=== PATIENT | male | born 1965 | race American Indian/Alaskan Native ===

== ENCOUNTER 2016-05-08 08:07 | Day surgery (SDC) | payer OTHER ==
[2016-05-08] MEDS ORDERED: DIPRIVAN 10 MG/ML IV ONE ×3 (08:21→10:06)
[2016-05-08] MEDS ORDERED: NACL 0.9% 1000 ML 1,000 ML IV SCH (09:00)
--- NOTE | 2016-05-08 09:02 | Anesthesia Consultation ---
Anesthesia Consult and Med Hx Date of service: 05/08/16 - Airway Anesthetic Teeth Evaluation: Good ROM Head & Neck: Adequate Mental/Hyoid Distance: Adequate Mallampati Class: Class II Intubation Access Assessment: Probably Good - Pulmonary Exam CTA: Yes - Cardiac Exam Cardiac Exam: RRR - Pre-Operative Health Status ASA Pre-Surgery Classification: ASA3 Proposed Anesthetic Plan: MAC - Pulmonary Hx Smoking: No - Cardiovascular System Hx Hypertension: Yes Hx Heart Attack/AMI: Yes Hx Internal Defibrillator: Yes (AICD w/ pacemaker, last shock 11/2014) - Central Nervous System CVA: Yes (10/2014) - Gastrointestinal Hx Gastroesophageal Reflux Disease: Yes - Endocrine Hx Insulin Dependent Diabetes: Yes - Hematic Hx Anemia: Yes Hx Sickle Cell Disease: No - Other Systems Hx Alcohol Use: No Hx Substance Use: No Hx Cancer: No Hx Obesity: No
--- NOTE | 2016-05-08 09:03 | Anesthesia Day of Surgery ---
Anesthesia Day of Surgery - Day of Surgery Patient Examined: Yes Patient H&P Reviewed: Yes Patient is NPO: Yes Beta Blockers: Yes
[2016-05-08] MEDS ORDERED: ROBINUL ONE (09:20)
[2016-05-08] MEDS ORDERED: XYLOCAINE MPF 2% ONE (09:20)
--- NOTE | 2016-05-08 09:20 | Short Stay Summary ---
Short Stay Documentation Date of service: 05/08/16 Narrative H&P: 50 year old presents for EGD/colonoscopy for evaluation of abdominal pain, diarrhea and reported abnormal 3rd and 4th portions of duodenum on CT scan. - History Principal diagnosis: abdominal pain, diarrhea, abnormal CT scan duodenum H&P: obtained from office - Allergies and Medications Current Medications: Allergies heparin Allergy (Mild, Verified 05/05/16 11:43) Hives metformin Allergy (Mild, Verified 05/05/16 11:43) Hives Home Medications Medication Instructions Recorded Confirmed Last Taken Type Adult Low Dose Aspirin EC 81 mg PO DAILY 05/05/16 05/08/16 05/01/16 09:00 History Colchicine 0.6 mg PO DAILY 05/05/16 05/08/16 05/08/16 05:00 History Furosemide 40 mg PO DAILY 05/05/16 05/08/16 05/07/16 10:00 History Lisinopril 40 mg PO DAILY 05/05/16 05/08/16 05/08/16 05:00 History Metoprolol 75 mg PO DAILY 05/05/16 05/08/16 05/08/16 05:00 History Pantoprazole 40 mg PO DAILY 05/05/16 05/05/16 05/05/16 History Vitamin D 50,000 units PO 1XW 05/05/16 05/05/16 05/01/16 History amLODIPine 10 mg PO DAILY 05/05/16 05/08/16 05/08/16 05:00 History cloNIDine 0.1 mg PO DAILY 05/05/16 05/08/16 05/08/16 05:00 History Active Medications Sodium Chloride (Nacl 0.9% 1000 Ml) 1,000 mls @ 50 mls/hr IV DIRECT BRITTANI Last Admin: 05/08/16 09:06 Dose: 50 mls/hr - Hospital course Hospital course: Uneventful EGD/J and colonoscopy. See reports. - Disposition Condition at discharge: Good Disposition: DISCHARGED TO HOME OR SELFCARE - Discharge Diagnoses (1) Abdominal pain Status: Acute Qualifiers: Abdominal location: A (2) Diarrhea Status: Acute Qualifiers: Diarrhea type: D (3) Abnormal CT of the abdomen Status: Acute Comment: reportedly wall thickening of 3rd and 4th duodenum (4) Hiatal hernia Status: Acute (5) Diverticulosis of colon Status: Acute Qualifiers: Diverticulosis bleeding: D (6) Internal hemorrhoids Status: Acute Short Stay Discharge Plan Activity: other (no driving today) Diet: other (resume usual) Additional Instructions: Patient to call for biopsy results in 10 days. Follow up with: PRIMARY CARE, [Primary Care Provider] - 7 Days
[2016-05-08] MEDS ORDERED: WATER FOR IRRIG STERILE IR ONE ×2 (10:09→10:10)
--- NOTE | 2016-05-08 10:12 | Operative Report ---
Operative Report Operative Report: Date of procedure: 05/08/2016 Preprocedure diagnosis: Unexplained abdominal pain, reported diarrhea, reported abnormal CT scan showing wall thickening of third and fourth portions of duodenum Post procedure diagnosis: Hiatal hernia, diverticulosis coli, internal hemorrhoids Procedure name(s): 1. Esophagogastroduodenoscopy plus jejunoscopy 2. Colonoscopy with biopsy Surgeon: Harvinder Guevara MD Anesthesia: Monitored anesthesia care EBL: None Procedure: The indications, techniques, potential complications and alternatives , had been discussed in full detail prior to the date of the exam, and once again on the day of the exam. Questions were encouraged and answered, and consent was thereby obtained. The patient was placed in the left lateral decubitus position, and was medicated by anesthesia services. See the anesthesia records for details. The tip of a pediatric colonoscope was passed without difficulty per orum, advanced through the pharynx and through the esophagus which appeared normal throughout its entire length. The instrument was advanced into the stomach and air was insufflated. The stomach distended well, gastric folds were normal in thickness and contour, gastric mucosa appeared normal throughout, the pylorus was patent and there was no retained gastric content. No pathology was seen in the duodenal bulb. The endoscope was then advanced through the duodenum at least into fourth portion of duodenum if not beyond the ligament of Treitz. No mucosal abnormality, abnormal distensibility or other luminal pathology was noted at any point. The ampulla was mildly prominent but covered with normal mucosa and appeared otherwise normal. Retroflexion in the stomach disclosed a hiatal hernia but otherwise normal lesser curvature, fundus and cardia on retroflexed examination. The instrument was straightened and withdrawn with repeat examination of the duodenum, stomach, esophagogastric junction and esophagus. There were no additional findings. The procedure was very well tolerated. He was placed in position for colonoscopy. The anal sphincter was digitally dilated, revealing no abnormality. The tip of the pediatric colonoscope was inserted through the anal sphincter and into the rectal vault. It was then advanced proximally under continuous visualization of the lumen to the cecum without difficulty. The prep was [id number] with significant mucoid fecal matter adherent to mucosa in a patchy distribution. Frequent copious lavage and suctioning were employed to improve mucosal visibility. No pathology was seen in the cecum. The appendiceal orifice and ileocecal valve appeared normal. Cannulation of the ileocecal valve was not successful due to sharp angulation. From the cecum, the instrument was slowly withdrawn with careful circumferential examination of the mucosa. A few diverticula were noted, primarily in the distal ascending and proximal transverse colon. Otherwise no pathology was found in any segment of colon on forward view. Random mucosal biopsies were obtained from all segments of colon to assess for microscopic colitis in view of the stated history of diarrhea. No significant bleeding was precipitated. Retroflexion in the rectum revealed mild to moderate internal hemorrhoids with no stigmata of bleeding. The instrument was fully withdrawn. The procedure was very well tolerated. He was then monitored in the recovery area of the GI lab to ensure stability prior to his release. See the outpatient record for details regarding instructions to patient, medications and plans for follow-up. Final diagnosis: 1. Hiatal hernia, otherwise normal upper endoscopy including jejunoscopy. No pathology found to account for abdominal pain nor to correspond to reported duodenal findings on CT scan. 2. Mild diverticulosis coli and internal hemorrhoids, otherwise normal colonoscopy to the cecum, no explanation for abdominal discomfort or diarrhea, random biopsies obtained to assess for microscopic colitis in view of stated history of diarrhea, however it is noteworthy that the prep was suboptimal. Harvinder Guevara M.D. Dictated 05/08/2016 at 10:07 AM
--- NOTE | 2016-05-08 10:40 | Event Note ---
Date: 05/08/16 Upon awakening in GI Lab recovery, Mr. Polk complained of pain in both legs with inability to move either leg. No upper extremity symptoms. On questioning, he gave history of previous cervical spine disease, and history of prior significant injury to lumbar spine including previous history of leg weakness. He was seen by anesthesia services and by me. Exam showed intact sensation with preserved ability to move toes bilaterally, moreso on the right. Dr. Haas of hospitalist service was contacted; he is coming to [facility] for probable admission and neurology consultation. I have discussed with Mr. Polk and his sister.
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
--- NOTE | 2016-05-08 12:07 | Event Note ---
Date: 05/08/16 I was called to admit patient to the hospitalist service by Dr. Guevara GI doctor. Patient came in for an outpatient upper and lower endoscopy through the GI lab. Patient had both procedures done and after procedures patient was unable to move his lower extremities. I was then asked to admit the patient to the hospitalist service but upon further investigation and review. I was informed that we do not have neurosurgery coverage today and patient needs urgent neurosurgery evaluation. Spoke to Dr. Guevara again and gave the message to him. He stated that he will have the patient transferred to the emergency room for further management. Also inform Dr. Guevara that the patient needs to be transferred to a facility that can provide neurosurgery evaluation today.
--- NOTE | 2016-05-08 12:13 | Event Note ---
Date: 05/08/[address] Haas. Patient cannot be admitted to [facility] medicine service due to lack of neurosurgical services. Per his advice Mr. Polk will be transferred to ED for further evaluation and disposition. I have spoken with ED physician and ED charge nurse who are now awaiting patient, and explained situation to Mr. Polk and his sister. Mr. Polk states symptoms in right leg have nearly resolved and are improving in left leg. Lef pain much improved. Sensory intact both legs but left leg still feels weak. He is requesting to go home but has agreed to stay for further evaluation and likely transfer to another facility that has full neurologic and neurosurgical services available.
--- NOTE | 2016-05-08 13:05 | Post Anesthesia Evaluation ---
- Post Anesthesia Evaluation Patient Participated: Yes Airway Patent: Yes Stable Respiratory Function: Yes Nausea/Vomiting: No Temp > 96.8F: Yes Pain Manageable: Yes Adequeate Hydration: Yes Anesthesia Complications: No (see anesthesia progress note) Block Receding Appropriately: Not Applicable Patient on Ventilator: No
[2016-05-09 10:53] VITALS: BP 148/78
== END 2016-05-08 08:08 | disposition home or self-care (01) ==
LOC: GIO 08:07 → 3A 11:04 → UNDOADMIN 11:04 → 3A 12:48 → CC1 12:48 → 3A 12:49 → CC1 12:49 → 3A 12:50 → CC1 12:50
PROVIDERS: ATTEND Internal Medicine Gastroenterology
DX: K52.9 Noninfective gastroenteritis and colitis, unspecified (principal); K31.89 Other diseases of stomach and duodenum; K44.9 Diaphragmatic hernia without obstruction or gangrene; K57.30 Diverticulosis of large intestine without perforation or abscess without bleeding; K64.8 Other hemorrhoids; M79.605 Pain in left leg; M79.604 Pain in right leg; E11.9 Type 2 diabetes mellitus without complications; K21.9 Gastro-esophageal reflux disease without esophagitis; I10 Essential (primary) hypertension; I25.2 Old myocardial infarction; Z95.1 Presence of aortocoronary bypass graft; Z98.890 Other specified postprocedural states; Z83.3 Family history of diabetes mellitus; Z83.79 Family history of other diseases of the digestive system; Z83.49 Family history of other endocrine, nutritional and metabolic diseases; Z80.0 Family history of malignant neoplasm of digestive organs; Z72.89 Other problems related to lifestyle; Z95.0 Presence of cardiac pacemaker; Z95.810 Presence of automatic (implantable) cardiac defibrillator
CPT/HCPCS: 44360; 45380; 82962; 88305; J2704; J7030; 99283

== ENCOUNTER 2016-05-08 13:12 | Emergency (ER) | payer OTHER ==
[2016-05-08 13:33] VITALS: BP 137/80
--- NOTE | 2016-05-08 13:55 | Emergency Department Report ---
HPI - General Chief Complaint: Extremity Injury, Lower Time Seen by Provider: 05/08/16 13:36 - HPI HPI: The patient is a 50-year-old male whom presents for evaluation of leg weakness. The patient reports one hour of constant, moderate to severe, bilateral lower leg weakness after receiving endoscopy by electronic maintenance supervisor one hour prior to presentation to the emergency department. He says that his symptoms have been improving since onset. He states that he was lying on his left side during the procedure. The patient denies trauma or injury to the head or back, headache, neck pain, back pain, chest pain, abdominal pain, urine or bowel incontinence, paresthesia. He shares that he has experienced episodes of leg weakness in the past for many years. ED Past Medical Hx - Past Medical History Hx Hypertension: Yes Hx Heart Attack/AMI: Yes Hx Diabetes: Yes Hx GERD: Yes Hx Sickle Cell Disease: No - Surgical History Hx Internal Defibrillator: Yes (AICD w/ pacemaker, last shock 11/2014) - Social History Smoking Status: Never Smoker - Medications Home Medications: Home Medications Medication Instructions Recorded Confirmed Last Taken Type Adult Low Dose Aspirin EC 81 mg PO DAILY 05/05/16 05/08/16 05/01/16 09:00 History Colchicine 0.6 mg PO DAILY 05/05/16 05/08/16 05/08/16 05:00 History Furosemide 40 mg PO DAILY 05/05/16 05/08/16 05/07/16 10:00 History Lisinopril 40 mg PO DAILY 05/05/16 05/08/16 05/08/16 05:00 History Metoprolol 75 mg PO DAILY 05/05/16 05/08/16 05/08/16 05:00 History Pantoprazole 40 mg PO DAILY 05/05/16 05/05/16 05/05/16 History Vitamin D 50,000 units PO 1XW 05/05/16 05/05/16 05/01/16 History amLODIPine 10 mg PO DAILY 05/05/16 05/08/16 05/08/16 05:00 History cloNIDine 0.1 mg PO DAILY 05/05/16 05/08/16 05/08/16 05:00 History ED Review of Systems ROS: Stated complaint: R LEG WEAKNESS Other details as noted in HPI Constitutional: denies: fever ENT: denies: throat or neck pain Respiratory: denies: cough, shortness of breath Cardiovascular: denies: chest pain Endocrine: denies unexplained weight loss or gain Gastrointestinal: denies: abdominal pain, nausea Genitourinary: denies: dysuria Musculoskeletal: reports leg weakness denies: leg swelling Skin: denies: rash Neurological: denies: headache Hematological/Lymphatic: denies: easy bleeding or easy bruising Psych: denies sadness or hopelessness Physical Exam - Physical Exam Vital Signs: Vital Signs 05/08/16 13:32 Temperature 98.3 F Pulse Rate 52 L Respiratory 14 Rate Blood Pressure 137/80 [Right] O2 Sat by Pulse 99 Oximetry Physical Exam: General: well-nourished, well-developed, no acute distress Head: Normocephalic, atraumatic Eyes: normal sclera ENT: Mucous membranes are pink and moist Neck: trachea midline, neck supple, No neck stiffness, no cervical adenopathy Respiratory: Breath sounds equal bilaterally, no wheezing, rales, or rhonchi Cardio: S1 and S2 present, no murmurs, rubs, gallops, capillary refill is brisk Abdomen: Normoactive bowel sounds, soft abdomen, no tenderness Chest WALL/Back: No tenderness to palpation of the chest wall, no CVA tenderness with percussion Musc: Inspection of the back and legs are unremarkable, no tenderness to palpation of the midline back, normal active and passive range of motion at the hips intact, no spinous step-off or obvious deformity, ipsi-lateral and contralateral straight leg raise tests are negative. On extremity testing, compartments are soft and pliable, no obvious gross motor strength deficit, 5+ motor strength, including extension of the great toe bilaterally, no muscular atrophy, spasticity, fasciculations, or clonus, no obvious gross sensation deficit including web space between 1st and 2nd toes, reflexes 2+ & symmetric on DTR testing at the knee and ankle joints, distal pulses intact. The patient is able to stand on the right foot and left the left leg, and stand on the left leg and lift the right foot. Skin: No rash Neuro: no facial drooping, normal speech Psych: Normal affect ED Course Vital Signs 05/08/16 13:32 Temperature 98.3 F Pulse Rate 52 L Respiratory 14 Rate Blood Pressure 137/80 [Right] O2 Sat by Pulse 99 Oximetry ED Medical Decision Making - Medical Decision Making The patient was seen and examined by myself. The patient is placed on a surveillance system monitor and continuous pulse ox. On initial evaluation, the patient was found to be in no distress. No findings on exam concerning for cauda equina syndrome, spinal stenosis, epidural abscess, or other emergent disease process at this time. As the patient has no midline tenderness on exam of the back, no neuro deficits, and no findings concerning for spinal chord injury, imaging will not be obtained at this time. The patient states that he feels that he is returning back to his normal baseline and would like to be discharged home. The patient is able to stand on each foot and left the opposing leg. The patient is stable for discharge with outpatient follow-up. The patient is given follow-up and return instructions. The patient expressed understanding and agreed with the plan. The patient is discharged in stable condition. Critical care attestation.: If time is entered above; I have spent that time in minutes in the direct care of this critically ill patient, excluding procedure time. ED Disposition Clinical Impression: Leg weakness, bilateral Disposition: DISCHARGED TO HOME OR SELFCARE Is pt being admited?: No Does the pt Need Aspirin: No Condition: Stable Instructions: Lumbar Radiculopathy (ED), Weakness (ED) Referrals: ZA MALAGON MD [Staff Physician] - 3-5 Days Time of Disposition: 13:53
== END 2016-05-08 14:20 | disposition home or self-care (01) ==
LOC: ED 13:12
DX: M62.81 Muscle weakness (generalized) (principal); I10 Essential (primary) hypertension; E11.9 Type 2 diabetes mellitus without complications; I25.2 Old myocardial infarction; K21.9 Gastro-esophageal reflux disease without esophagitis; Z95.0 Presence of cardiac pacemaker; Z79.82 Long term (current) use of aspirin
CPT/HCPCS: 99283

== ENCOUNTER 2016-09-08 16:12 | Emergency (ER) | payer OTHER ==
--- NOTE | 2016-09-08 20:19 | XRay Report ---
FINAL REPORT EXAM: XR ANKLE 3 LT HISTORY: LEFT ANKLE PAIN AND SWELLING TECHNIQUE: AP, lateral, and oblique views of the left ankle PRIORS: None. FINDINGS: There is no evidence for acute fracture or dislocation. There is mild soft tissue swelling over the lateral malleolus. No radiopaque foreign bodies are seen. The ankle mortise is intact. Bony mineralization is normal and joint spaces are maintained. IMPRESSION: No acute bony abnormality noted. Mild soft tissue swelling over the lateral malleolus.
[2016-09-08] MEDS ORDERED: TORADOL IM ONE (20:33)
--- NOTE | 2016-09-08 20:51 | Emergency Department Report ---
ED General Adult HPI - General Chief complaint: Extremity Injury, Lower Stated complaint: LT FOOT/ANKLE SWOLLEN/PAIN Time Seen by Provider: 09/08/16 20:22 Source: patient Mode of arrival: Ambulatory Limitations: No Limitations - History of Present Illness Initial comments: Patient comes in the ER today with complaints of left ankle pain for the past week. Patient does state that he had a gout flareup in his toes of his left foot last week and he started taking colchicine in addition to his regular regimen of allopurinol for his gout flareup. Patient comes in today because he says that his symptoms are better but now his left ankle is painful and swollen. Patient denies any injury. Patient denies any chest pain, shortness of breath, calf pain, thigh pain. Patient states that the pain is worse with ambulation or movement. - Related Data Home Medications Medication Instructions Recorded Confirmed Last Taken Adult Low Dose Aspirin EC 81 mg PO DAILY 05/05/16 05/08/16 05/01/16 09:00 Colchicine 0.6 mg PO DAILY 05/05/16 05/08/16 05/08/16 05:00 Furosemide 40 mg PO DAILY 05/05/16 05/08/16 05/07/16 10:00 Lisinopril 40 mg PO DAILY 05/05/16 05/08/16 05/08/16 05:00 Metoprolol 75 mg PO DAILY 05/05/16 05/08/16 05/08/16 05:00 Pantoprazole 40 mg PO DAILY 05/05/16 05/05/16 05/05/16 Vitamin D 50,000 units PO 1XW 05/05/16 05/05/16 05/01/16 amLODIPine 10 mg PO DAILY 05/05/16 05/08/16 05/08/16 05:00 cloNIDine 0.1 mg PO DAILY 05/05/16 05/08/16 05/08/16 05:00 Previous Rx's Medication Instructions Recorded Last Taken Type Indomethacin 50 mg PO Q8H PRN #30 capsule 09/08/16 Unknown Rx traMADol [Ultram] 50 mg PO Q4HR PRN #20 tablet 09/08/16 Unknown Rx Allergies Allergy/AdvReac Type Severity Reaction Status Date / Time heparin Allergy Mild Hives Verified 09/08/16 16:35 metformin Allergy Mild Hives Verified 09/08/16 16:35 ED Review of Systems ROS: Stated complaint: LT FOOT/ANKLE SWOLLEN/PAIN Other details as noted in HPI Constitutional: denies: chills, fever Eyes: denies: eye pain, eye discharge, vision change ENT: denies: ear pain, throat pain Respiratory: denies: cough, shortness of breath, wheezing Cardiovascular: denies: chest pain, palpitations Endocrine: no symptoms reported Gastrointestinal: denies: abdominal pain, nausea, diarrhea Genitourinary: denies: urgency, dysuria Musculoskeletal: joint swelling, arthralgia. denies: back pain Skin: denies: rash, lesions Neurological: denies: headache, weakness, paresthesias Psychiatric: denies: anxiety, depression Hematological/Lymphatic: denies: easy bleeding, easy bruising ED Past Medical Hx - Past Medical History Hx Hypertension: Yes Hx Heart Attack/AMI: Yes (X 2) Hx Congestive Heart Failure: Yes Hx Diabetes: Yes Hx Pulmonary Embolism: Yes Hx GERD: Yes Hx Sickle Cell Disease: No Hx Arthritis: Yes (GOUT) Additional medical history: HYPERTROPHIC CARDIOMYOPATHY. TIA - Surgical History Hx Internal Defibrillator: Yes (AICD w/ pacemaker, last shock 11/2014) Additional Surgical History: LEFT ELBOW. DOUBLE HERNIA REPAIR. LEFT AND RIGHT MENISCUS - Social History Smoking Status: Never Smoker Substance Use Type: None - Medications Home Medications: Home Medications Medication Instructions Recorded Confirmed Last Taken Type Adult Low Dose Aspirin EC 81 mg PO DAILY 05/05/16 05/08/16 05/01/16 09:00 History Colchicine 0.6 mg PO DAILY 05/05/16 05/08/16 05/08/16 05:00 History Furosemide 40 mg PO DAILY 05/05/16 05/08/16 05/07/16 10:00 History Lisinopril 40 mg PO DAILY 05/05/16 05/08/16 05/08/16 05:00 History Metoprolol 75 mg PO DAILY 05/05/16 05/08/16 05/08/16 05:00 History Pantoprazole 40 mg PO DAILY 05/05/16 05/05/16 05/05/16 History Vitamin D 50,000 units PO 1XW 05/05/16 05/05/16 05/01/16 History amLODIPine 10 mg PO DAILY 05/05/16 05/08/16 05/08/16 05:00 History cloNIDine 0.1 mg PO DAILY 05/05/16 05/08/16 05/08/16 05:00 History Indomethacin 50 mg PO Q8H PRN #30 capsule 09/08/16 Unknown Rx traMADol [Ultram] 50 mg PO Q4HR PRN #20 tablet 09/08/16 Unknown Rx ED Physical Exam - General Limitations: No Limitations General appearance: alert, in no apparent distress - Head Head exam: Present: atraumatic, normocephalic - Eye Eye exam: Present: normal appearance - ENT ENT exam: Present: mucous membranes moist - Neck Neck exam: Present: normal inspection - Respiratory Respiratory exam: Present: normal lung sounds bilaterally. Absent: respiratory distress - Cardiovascular Cardiovascular Exam: Present: regular rate, normal rhythm. Absent: systolic murmur, diastolic murmur, rubs, gallop - GI/Abdominal GI/Abdominal exam: Present: soft, normal bowel sounds - Rectal Rectal exam: Present: deferred - Extremities Exam Extremities exam: Present: tenderness (left ankle), normal capillary refill, joint swelling (ankle tenderness and swelling with warmth and heat from the joint.), other (left ankle range of motion limited secondary to pain and swelling, no signs of redness or cellulitic findings noted.). Absent: normal inspection, full ROM (Limited range of motion of left ankle secondary to pain.) , pedal edema, calf tenderness - Back Exam Back exam: Present: normal inspection - Neurological Exam Neurological exam: Present: alert, oriented X3 - Psychiatric Psychiatric exam: Present: normal affect, normal mood - Skin Skin exam: Present: warm, dry, intact, normal color. Absent: rash ED Course Vital Signs 09/08/16 16:49 Temperature 98.4 F Pulse Rate 77 Respiratory 17 Rate Blood Pressure 182/108 O2 Sat by Pulse 100 Oximetry ED Medical Decision Making - Radiology Data Radiology results: report reviewed No acute bone pathology. Soft tissue swelling noted to lateral malleolus. - Medical Decision Making Patient is nontoxic and hemodynamically stable. Patient does not have any exam findings consistent with DVT. I believe patient's symptoms are related to migrating gout. Patient has not been on any anti-inflammatories and I will start patient on a course of such. Patient was given Toradol 60 mg IM here in the ER as well as instructed on crutches here in the ER. I have encouraged patient to continue the colchicine in addition to anti-inflammatories and I will place patient on. Patient is in agreement with treatment plan a patient stable for discharge. Critical care attestation.: If time is entered above; I have spent that time in minutes in the direct care of this critically ill patient, excluding procedure time. ED Disposition Clinical Impression: Left ankle pain, Personal history of gout Disposition: TO HOME OR SELFCARE Is pt being admited?: No Does the pt Need Aspirin: No Condition: Good Instructions: Acute Gouty Arthritis (ED), Crutch Instructions (ED) Prescriptions: Indomethacin 50 mg PO Q8H PRN #30 capsule PRN Reason: Inflammation traMADol [Ultram] 50 mg PO Q4HR PRN #20 tablet PRN Reason: Pain Referrals: PRIMARY CARE, [Primary Care Provider] - 3-5 Days Time of Disposition: 20:53
[2016-09-08 21:18] VITALS: BP 182/101
== END 2016-09-08 21:42 | disposition home or self-care (01) ==
LOC: ED 16:12
DX: M25.572 Pain in left ankle and joints of left foot (principal); M10.9 Gout, unspecified; I10 Essential (primary) hypertension; I25.2 Old myocardial infarction; I50.9 Heart failure, unspecified; E11.9 Type 2 diabetes mellitus without complications; K21.9 Gastro-esophageal reflux disease without esophagitis; I42.2 Other hypertrophic cardiomyopathy; Z95.0 Presence of cardiac pacemaker; Z86.711 Personal history of pulmonary embolism; Z88.8 Allergy status to other drugs, medicaments and biological substances
CPT/HCPCS: 73610; 96372; 99284; J1885

== ENCOUNTER 2016-12-31 18:21 | Emergency (ER) | payer OTHER ==
[2016-12-31 18:42] VITALS: BP 183/103
[2016-12-31 19:05] LABS: Basophils % (Auto) 0.6 % (0.0-1.8); Eosinophils % (Auto) 1.1 % (0.0-4.3); Hematocrit 43.8 % (35.5-45.6); Hemoglobin 14.5 gm/dl (11.8-15.2); Mean Corpuscular HGB Conc 33 % (32-34); Mean Corpuscular Hemoglobin 31 pg (28-32); Mean Corpuscular Volume 95 fl (84-94); Platelet Count 229 K/mm3 (140-440); Red Blood Count 4.64 M/mm3 (3.65-5.03); Red Cell Distribution Width 15.4 % (13.2-15.2); White Blood Count 8.9 K/mm3 (4.5-11.0)
[2016-12-31 19:16] LABS: INR 1.49 (0.87-1.13)
[2016-12-31 19:23] LABS: BUN/Creatinine Ratio 12; Blood Urea Nitrogen 18 mg/dL (9-20); Calcium 8.8 mg/dL (8.4-10.2); Carbon Dioxide 26 mmol/L (22-30); Chloride 99.5 mmol/L (98-107); Glucose 118 mg/dL (75-100); Sodium 138 mmol/L (137-145)
[2016-12-31 19:31] LABS: Anion Gap 17 mmol/L; Potassium 4.6 mmol/L (3.6-5.0)
--- NOTE | 2016-12-31 19:45 | XRay Report ---
FINAL REPORT PROCEDURE: XR CHEST ROUTINE 2V TECHNIQUE: PA and lateral chest radiographs were obtained. CPT 17145 HISTORY: chest pain COMPARISON: No prior studies are available for comparison. FINDINGS: Heart: Normal contour. Mediastinum/Vessels: Normal contour. Lungs/Pleural space: No infiltrate, effusion, or pneumothorax. Bony thorax: No acute osseous abnormality. Other: Left AICD IMPRESSION: No radiographic evidence of acute abnormality.
== END 2016-12-31 20:30 | disposition left against medical advice (07) ==
LOC: ED 18:21
DX: R07.9 Chest pain, unspecified (principal); R06.02 Shortness of breath; Z53.21 Procedure and treatment not carried out due to patient leaving prior to being seen by health care provider
CPT/HCPCS: 36415; 71020; 80048; 84484; 85025; 85610; 93005; 93010

== ENCOUNTER 2017-01-01 12:56 | Inpatient (IN) | payer OTHER ==
--- NOTE | 2017-01-01 13:08 | Emergency Department Report ---
ED Chest Pain HPI - General Chief Complaint: Chest Pain Stated Complaint: CHEST PAIN Time Seen by Provider: 01/01/17 13:05 Source: patient, EMS Mode of arrival: Stretcher Limitations: No Limitations - History of Present Illness Initial Comments: 51-year-old male presents to the emergency department by EMS from home with complaint of midsternal chest pain that began 2 days ago. It is a intermittent pressure sensation to the mid chest. It is associated with some occasional shortness of breath. He denies any nausea, vomiting, fever. He received sublingual nitroglycerin in route without any relief. He also had very elevated blood pressure upon EMS arrival with a systolic of about 220. The patient has a history of hypertension, diabetes, coronary artery disease, hypertrophic cardiomyopathy, AICD in situ. Both his primary care and cardiology physicians through the [facility]. He has a history of PA 2 with the last one occurring in May of this year. No recent travel or sick contacts at home. He came [facility] yesterday but did not make it back to the main emergency department and eloped prior to being seen. The patient also has a history of pulmonary embolism 2 and says that he is on Xarelto and has not missed any doses. - Related Data Home Medications Medication Instructions Recorded Confirmed Last Taken Adult Low Dose Aspirin EC 81 mg PO DAILY 05/05/16 05/08/16 05/01/16 09:00 Colchicine 0.6 mg PO DAILY 05/05/16 05/08/16 05/08/16 05:00 Furosemide 40 mg PO DAILY 05/05/16 05/08/16 05/07/16 10:00 Lisinopril 40 mg PO DAILY 05/05/16 05/08/16 05/08/16 05:00 Metoprolol 75 mg PO DAILY 05/05/16 05/08/16 05/08/16 05:00 Pantoprazole 40 mg PO DAILY 05/05/16 05/05/16 05/05/16 Vitamin D 50,000 units PO 1XW 05/05/16 05/05/16 05/01/16 amLODIPine 10 mg PO DAILY 05/05/16 05/08/16 05/08/16 05:00 cloNIDine 0.1 mg PO DAILY 05/05/16 05/08/16 05/08/16 05:00 Previous Rx's Medication Instructions Recorded Last Taken Type Indomethacin 50 mg PO Q8H PRN #30 capsule 09/08/16 Unknown Rx traMADol [Ultram] 50 mg PO Q4HR PRN #20 tablet 09/08/16 Unknown Rx Allergies Allergy/AdvReac Type Severity Reaction Status Date / Time heparin Allergy Mild Hives Verified 09/08/16 16:35 metformin Allergy Mild Hives Verified 09/08/16 16:35 Heart Score - HEART Score History: Highly suspicious EKG: Non-specific Age: 45-65 Risk factors: > 3 risk factors or hx of atherosclerotic disease Troponin: < normal limit HEART Score: 6 - Critical Actions Critical Actions: 4-6 pts:12-16.6% risk of adverse cardiac event. Should be admitted ED Review of Systems ROS: Stated complaint: CHEST PAIN Other details as noted in HPI Comment: All other systems reviewed and negative Constitutional: denies: chills, fever Eyes: denies: eye pain, eye discharge, vision change ENT: denies: ear pain, throat pain Respiratory: shortness of breath. denies: cough Cardiovascular: chest pain, palpitations. denies: edema Gastrointestinal: denies: abdominal pain, nausea, diarrhea Genitourinary: denies: urgency, dysuria Musculoskeletal: denies: back pain, joint swelling, arthralgia Skin: denies: rash, lesions Neurological: denies: headache, weakness, paresthesias ED Past Medical Hx - Past Medical History Previous Medical History?: Yes Hx Hypertension: Yes Hx Heart Attack/AMI: Yes (X 2) Hx Congestive Heart Failure: Yes Hx Diabetes: Yes Hx Pulmonary Embolism: Yes Hx GERD: Yes Hx Sickle Cell Disease: No Hx Arthritis: Yes (GOUT) Additional medical history: HYPERTROPHIC CARDIOMYOPATHY. TIA - Surgical History Past Surgical History?: Yes Hx Internal Defibrillator: Yes (AICD w/ pacemaker, last shock 11/2014) Additional Surgical History: LEFT ELBOW. DOUBLE HERNIA REPAIR. LEFT AND RIGHT MENISCUS - Social History Smoking Status: Never Smoker Substance Use Type: None - Medications Home Medications: Home Medications Medication Instructions Recorded Confirmed Last Taken Type Adult Low Dose Aspirin EC 81 mg PO DAILY 05/05/16 05/08/16 05/01/16 09:00 History Colchicine 0.6 mg PO DAILY 05/05/16 05/08/16 05/08/16 05:00 History Furosemide 40 mg PO DAILY 05/05/16 05/08/16 05/07/16 10:00 History Lisinopril 40 mg PO DAILY 05/05/16 05/08/16 05/08/16 05:00 History Metoprolol 75 mg PO DAILY 05/05/16 05/08/16 05/08/16 05:00 History Pantoprazole 40 mg PO DAILY 05/05/16 05/05/16 05/05/16 History Vitamin D 50,000 units PO 1XW 05/05/16 05/05/16 05/01/16 History amLODIPine 10 mg PO DAILY 05/05/16 05/08/16 05/08/16 05:00 History cloNIDine 0.1 mg PO DAILY 05/05/16 05/08/16 05/08/16 05:00 History Indomethacin 50 mg PO Q8H PRN #30 capsule 09/08/16 Unknown Rx traMADol [Ultram] 50 mg PO Q4HR PRN #20 tablet 09/08/16 Unknown Rx ED Physical Exam - General Limitations: No Limitations - Other Other exam information: GENERAL: The patient is well-developed well-nourished. HENT: Normocephalic. Atraumatic. Patient has moist mucous membranes. EYES: Extraocular motions are intact. Pupils equal reactive to light bilaterally. NECK: Supple. Trachea is midline. CHEST/LUNGS: Clear to auscultation. There is no respiratory distress noted. HEART/CARDIOVASCULAR: Regular. There is no tachycardia. There is no gallop rub or murmur. ABDOMEN: Abdomen is soft, nontender. Patient has normal bowel sounds. There is no abdominal distention. SKIN: Skin is warm and dry. NEURO: The patient is awake, alert, and oriented. The patient is cooperative. The patient has no focal neurologic deficits. The patient has normal speech. MUSCULOSKELETAL: There is no tenderness or deformity. There is no limitation range of motion. There is no evidence of acute injury. ED Course Vital Signs 01/01/17 01/01/17 13:08 13:17 Temperature 98.6 F Pulse Rate 81 85 Respiratory 16 Rate Blood Pressure 167/115 Blood Pressure 167/115 [Left] O2 Sat by Pulse 98 Oximetry - Consultations Consultation #1: 01/01/17 13:07 [facility] was contacted regarding a code STEMI being called from the field. They felt that the EKG was more consistent with LVH as well as the same diagnosis from the EKG upon presentation to the emergency department and the code STEMI was canceled. HARSHAL score - Harshal Score Age > 65: (0) No Aspirin use within the Past 7 Days: (1) Yes 3 or more CAD Risk Factors: (1) Yes 2 or more Angina events in past 24 hrs: (1) Yes Known CAD with more than 50% Stenosis: (0) No Elevated Cardiac Markers: (0) No ST Deviation Greater than 0.5mm: (1) Yes HARSHAL Score: 4 ED Medical Decision Making - Lab Data Result diagrams: 01/01/17 13:00 01/01/17 13:00 - EKG Data -: EKG Interpreted by Me EKG shows normal: sinus rhythm, axis, intervals, QRS complexes (Q waves to the septal leads), ST-T waves (T waves inverted in the inferior lateral leads, some mild ST elevation to the septal leads) Rate: normal - EKG Data When compared to previous EKG there are: previous EKG unavailable Interpretation: other (sinus rhythm, normal axis, Q waves to the septal leads, T -wave inversion to the inferior lateral leads and mild ST elevations to the septal leads) - Radiology Data Radiology results: image reviewed interpreted by me: Chest x-ray does not show any acute process. There are no pleural effusions, obvious pneumonia and there is no pneumothorax. - Medical Decision Making 51-year-old male with significant cardiac history presents with some chest pain going on for the past 2 days. The EKG transmitted by EMS looked concerning for possible STEMI so code STEMI was called later canceled by cardiology as they felt the EKG was consistent more with LVH. However patient does have Q waves and diffuse T-wave inversions. He was given Lopressor for blood pressure, morphine for pain and aspirin to protect the heart. He will be admitted to the hospital for further evaluation and treatment. - Differential Diagnosis PA, PE, pneumonia, CHF Critical Care Time: No Critical care attestation.: If time is entered above; I have spent that time in minutes in the direct care of this critically ill patient, excluding procedure time. ED Disposition Clinical Impression: History of coronary artery disease, Angina at rest Chest pain Qualifiers: Chest pain type: unspecified Qualified Code(s): R07.9 - Chest pain, unspecified Hypertension Qualifiers: Hypertension type: essential hypertension Qualified Code(s): I10 - Essential ( primary) hypertension Disposition: DC-09 OP ADMIT IP TO THIS HOSP Is pt being admited?: Yes Condition: Stable Instructions: Chest Pain (ED), Hypertension (ED) Referrals: PRIMARY CARE, [Primary Care Provider] - 3-5 Days Time of Disposition: 13:48
[2017-01-01] MEDS ORDERED: LOPRESSOR IV ONE (13:09)
[2017-01-01] MEDS ORDERED: MORPHINE IV ONE (13:09)
[2017-01-01 13:10] LABS: Basophils % (Auto) 0.8 % (0.0-1.8); Eosinophils % (Auto) 1.2 % (0.0-4.3); Hematocrit 42.4 % (35.5-45.6); Hemoglobin 14.2 gm/dl (11.8-15.2); Mean Corpuscular HGB Conc 33 % (32-34); Mean Corpuscular Hemoglobin 31 pg (28-32); Mean Corpuscular Volume 92 fl (84-94); Platelet Count 214 K/mm3 (140-440); Red Blood Count 4.62 M/mm3 (3.65-5.03); Red Cell Distribution Width 14.9 % (13.2-15.2); White Blood Count 8.1 K/mm3 (4.5-11.0)
[2017-01-01 13:33] LABS: BUN/Creatinine Ratio 11; Blood Urea Nitrogen 13 mg/dL (9-20); Calcium 8.9 mg/dL (8.4-10.2); Carbon Dioxide 25 mmol/L (22-30); Chloride 98.2 mmol/L (98-107); Glucose 237 mg/dL (75-100); Sodium 136 mmol/L (137-145)
--- NOTE | 2017-01-01 13:39 | XRay Report ---
PORTABLE CHEST INDICATION: Chest pain. COMPARISON: Yesterday. FINDINGS: Portable, frontal chest radiograph, 1:16 PM, 01/01/2017 again demonstrates clear lungs, left AICD with single ventricular lead and stable cardiomediastinal silhouette. Right hemidiaphragm minimally elevated. No pleural effusions or CHF. EKG leads. Stable bones. CONCLUSION: No acute chest process or significant interval change, as described. Thank you for the opportunity to participate in this patient's care.
[2017-01-01 13:49] LABS: Anion Gap 17 mmol/L; Potassium 4.4 mmol/L (3.6-5.0)
--- NOTE | 2017-01-01 13:56 | History and Physical Report ---
History of Present Illness Chief complaint: My chest keeps hurting, and it wont stop History of present illness: 51 YO Male with HTN, MIx2, CHF, DM, PE, GERD, Gout, Metabolic Syndrome, Obesity presents to ED for evaluation. Pt states that he has experienced pain in his chest for the past 2 days with persistent symptoms over that same time. Pt states that pain is 6-8/10, Midsternal, Crushing in nature, associated with shortness of breath, worsened with exertion, not relieved with rest. Pt states that symptoms not impoved with nitro tablets. Pt denies fever, chills, NVD, pleuritic chest pain, sweating with meals, noncompliance with anticoagulation, hemoptysis, prolonged travel/immobility, leg swelling/calf pain, productive cough, or recent ill contacts. Pt currently on Xarelto for PE and is compliant with therapy. Past History Past Medical History: acute DC, diabetes, GERD, heart failure, hypertension, pulmonary embolism, other (Obesity, metabolic syndrome) Past Surgical History: hernia repair, Other (AICD placement) Social history: , lives with family. denies: smoking, alcohol abuse, prescription drug abuse Family history: CAD, diabetes, hypertension Medications and Allergies Allergies Allergy/AdvReac Type Severity Reaction Status Date / Time heparin Allergy Mild Hives Verified 09/08/16 16:35 metformin Allergy Mild Hives Verified 09/08/16 16:35 Home Medications Medication Instructions Recorded Confirmed Last Taken Type Adult Low Dose Aspirin EC 81 mg PO DAILY 05/05/16 01/01/17 01/01/17 History Lisinopril 40 mg PO DAILY 05/05/16 01/01/17 01/01/17 History ALBUTEROL Inhaler [Proair] 2 puff IH QID PRN 01/01/17 01/01/17 Unknown History Allopurinol [Zyloprim] 300 mg PO DAILY 01/01/17 01/01/17 01/01/17 History Clonidine HCl [Catapres] 0.3 mg PO DAILY 01/01/17 01/01/17 01/01/17 History ISOSORBIDE MONOnitrate [Imdur ER] 60 mg PO DAILY 01/01/17 01/01/17 01/01/17 History Loratadine [Claritin] 10 mg PO DAILY 01/01/17 01/01/17 01/01/17 History Rivaroxaban [Xarelto] 20 mg PO QDAY 01/01/17 01/01/17 01/01/17 History Verapamil HCl [Verapamil ER] 240 mg PO DAILY 01/01/17 01/01/17 01/01/17 History glyBURIDE [Diabeta] 5 mg PO DAILY 01/01/17 01/01/17 01/01/17 History Review of Systems Constitutional: no weight loss, no weight gain, no fever, no chills, no sweats Ears, nose, mouth and throat: no ear pain, no ear discharge, no tinnitis, no decreased hearing, no nose pain, no nasal congestion, no nasal discharge Cardiovascular: chest pain, shortness of breath, no palpitations, no rapid/ irregular heart beat, no claudication Respiratory: no cough, no cough with sputum, no excessive sputum, no hemoptysis Gastrointestinal: no nausea, no vomiting, no diarrhea, no constipation Genitourinary Male: no hematuria, no flank pain, no discharge, no urinary frequency, no urinary hesitancy Rectal: no pain, no incontinence, no bleeding Musculoskeletal: no neck stiffness, no neck pain, no shooting arm pain, no arm numbness/tingling, no low back pain, no shooting leg pain, no leg numbness/ tingling Integumentary: no rash, no pruritis, no redness, no sores, no wounds Neurological: no transient paralysis, no paralysis, no weakness, no parathesias , no numbness, no tingling, no seizures Psychiatric: no anxiety, no memory loss, no change in sleep habits, no sleep disturbances, no insomnia, no hypersomnia, no change in appetite Endocrine: no cold intolerance, no heat intolerance, no polyphagia, no excessive thirst, no polydipsia, no polyuria, no nocturia Hematologic/Lymphatic: no easy bruising, no easy bleeding Allergic/Immunologic: no urticaria, no allergic rhinitis, no wheezing Exam - Constitutional Vitals: Temp Pulse Resp BP Pulse Ox 98.6 F 71 16 120/87 97 01/01/17 13:17 01/01/17 13:48 01/01/17 13:48 01/01/17 13:48 01/01/17 13:48 General appearance: Present: mild distress, obese - EENT Eyes: Present: PERRL ENT: hearing intact, clear oral mucosa - Neck Neck: Present: supple, normal ROM - Respiratory Respiratory effort: normal Respiratory: bilateral: CTA - Cardiovascular Heart Sounds: Present: S1 & S2. Absent: rub, click - Extremities Extremities: pulses symmetrical, No edema Peripheral Pulses: within normal limits - Abdominal General gastrointestinal: Present: soft, non-tender, non-distended, normal bowel sounds Male genitourinary: Present: normal - Integumentary Integumentary: Present: clear, warm, dry - Musculoskeletal Musculoskeletal: gait normal, strength equal bilaterally - Psychiatric Psychiatric: appropriate mood/affect, intact judgment & insight - Neurologic Neurologic: CNII-XII intact, moves all extremities Results - Labs CBC & Chem 7: 01/01/17 13:00 01/01/17 13:00 Labs: Abnormal lab results 01/01/17 01/01/17 Range/Units 13:00 13:00 [place] % (Auto) 10.2 H (0.0-7.3) % Sodium 136 L (137-145) mmol/L Glucose 237 H (75-100) mg/dL Assessment and Plan - Patient Problems (1) CHF (congestive heart failure) Current Visit: Yes Status: Suspected Qualifiers: Congestive heart failure type: systolic Congestive heart failure chronicity : acute Qualified Code(s): I50.21 - Acute systolic (congestive) heart failure Plan to address problem: Echo, BNP, D dimer, serial cardiac enzymes, diuretic therapy, monitor uop q shift, fluid restriction, negative fluid balance. (2) Angina at rest Current Visit: Yes Status: Acute Plan to address problem: Serial cardiac enzymes, ekg, telemetry, continue therapeutic anticoagulation, echo, stress test, cardiology consulted, lipid panel, continue statin therapy (3) Accelerated hypertension Current Visit: Yes Status: Acute Plan to address problem: Monitor bp q shift, continue medical management, (4) Diabetes Current Visit: Yes Status: Acute Qualifiers: Diabetes mellitus type: D Diabetes mellitus complication status: D Diabetes mellitus complication detail: D Diabetic retinopathy severity: D Proliferative retinopathy type: P Diabetes mellitus macular edema: D 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 (7) DVT prophylaxis Current Visit: Yes Status: Acute
[2017-01-01] MEDS ORDERED: ZOFRAN IV PRN (14:00)
[2017-01-01] MEDS ORDERED: PROVENTIL IH PRN (14:00)
[2017-01-01] MEDS ORDERED: SODIUM CHLORIDE FLUSH SYRINGE 10 ML IV PRN (14:00)
[2017-01-01] MEDS ORDERED: MILK OF MAGNESIA PO PRN (14:00)
[2017-01-01] MEDS ORDERED: DULCOLAX PR PRN (14:00)
--- NOTE | 2017-01-01 15:32 | Consultation ---
History of Present Illness Consult date: 01/01/17 Requesting physician: PAYAM CARDONA Consult reason: chest pain, other (abnormal EKG) History of present illness: The pt is a 51-year-old male with a past medical history significant for CAD, s/p NV x 2 (01/2002 and 05/2014) with no intervention per pt report, CMP with AICD in situ, heart failure, unprovoked PE x 2 (09/2015 and 12/2015), lifelong anticoagulation with Xarelto, HTN, DM, obesity. He is previously unknown to our practice. 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 He presents to the emergency department by EMS from home with complaint of midsternal chest pain that began 2 days ago. It is a intermittent pressure sensation to the mid chest. It is associated with some occasional shortness of breath. He denies any nausea, vomiting, fever. He received sublingual nitroglycerin in route without any relief. He also had very elevated blood pressure upon EMS arrival with a systolic of about 220. Pt reports a one month history of elevated BP and states his PCP and feed inspection supervisor have been titrating his anti-hypertensive medications accordingly. No recent travel or sick contacts at home. He came [facility] yesterday but did not make it back to the main emergency department and eloped prior to being seen. Initial EKG transmitted via EMS was concerning for STEMI per ED MD. However, this EKG was interpreted as LVH with repolarization abnormalities per Dr. Lo and Dr. Ayala. Repeat EKG following arrival showed again LVH with repolarization abnormalities, unchanged from EMS EKG. Of note, stress MPI done at [facility] 05/2014 was negative for ischemia, LV moderately dilated, EF 41%. Past History Past Medical History: acute NV, diabetes, GERD, heart failure, hypertension, pulmonary embolism, other (Obesity, metabolic syndrome) Past Surgical History: hernia repair, Other (AICD placement) Social history: , lives with family. denies: smoking, alcohol abuse, prescription drug abuse Family history: CAD, diabetes, hypertension Medications and Allergies Allergies Allergy/AdvReac Type Severity Reaction Status Date / Time heparin Allergy Mild Hives Verified 09/08/16 16:35 metformin Allergy Mild Hives Verified 09/08/16 16:35 Home Medications Medication Instructions Recorded Confirmed Last Taken Type Adult Low Dose Aspirin EC 81 mg PO DAILY 05/05/16 01/01/17 01/01/17 History Lisinopril 40 mg PO DAILY 05/05/16 01/01/17 01/01/17 History ALBUTEROL Inhaler [Proair] 2 puff IH QID PRN 01/01/17 01/01/17 Unknown History Allopurinol [Zyloprim] 300 mg PO DAILY 01/01/17 01/01/17 01/01/17 History Clonidine HCl [Catapres] 0.3 mg PO DAILY 01/01/17 01/01/17 01/01/17 History ISOSORBIDE MONOnitrate [Imdur ER] 60 mg PO DAILY 01/01/17 01/01/17 01/01/17 History Loratadine [Claritin] 10 mg PO DAILY 01/01/17 01/01/17 01/01/17 History Rivaroxaban [Xarelto] 20 mg PO QDAY 01/01/17 01/01/17 01/01/17 History Verapamil HCl [Verapamil ER] 240 mg PO DAILY 01/01/17 01/01/17 01/01/17 History glyBURIDE [Diabeta] 5 mg PO DAILY 01/01/17 01/01/17 01/01/17 History Active Meds: Active Medications Acetaminophen (Tylenol) 650 mg PO Q4H PRN PRN Reason: Pain MILD(1-3)/Fever >100.5/RAMÍREZ Albuterol (Proventil) 2.5 mg IH Q3HRT PRN PRN Reason: Shortness Of Breath Bisacodyl (Dulcolax) 10 mg DC QDAY PRN PRN Reason: Constipation unrelieved by [facility] Famotidine (Pepcid) 10 mg PO BID BRITTANI Furosemide (Lasix) 20 mg IV 0600,1800 BRITTANI Magnesium Hydroxide (Milk Of Magnesia) 30 ml PO Q4H PRN PRN Reason: Constipation Ondansetron HCl (Zofran) 4 mg IV Q8H PRN PRN Reason: N/V unrelieved by Reglan Sodium Chloride (Sodium Chloride Flush Syringe 10 Ml) 10 ml IV PRN PRN PRN Reason: LINE FLUSH Stop: 01/11/17 13:59 Review of Systems Constitutional: no weight loss, no weight gain, no fever, no chills, no sweats Ears, nose, mouth and throat: no ear pain, no nose pain, no sinus pressure, no sinus pain Cardiovascular: chest pain, shortness of breath, high blood pressure, no orthopnea, no palpitations, no rapid/irregular heart beat, no edema, no syncope , no lightheadedness, no dyspnea on exertion Respiratory: no cough, no shortness of breath, no dyspnea on exertion, no congestion, no wheezing, no pain on inspiration Gastrointestinal: no abdominal pain, no nausea, no vomiting, no diarrhea, no constipation, no change in bowel habits Genitourinary Male: no dysuria, no hematuria, no flank pain, no discharge, no urinary frequency, no urinary hesitancy Musculoskeletal: no neck stiffness, no neck pain, no shooting arm pain, no arm numbness/tingling, no low back pain, no shooting leg pain, no leg numbness/ tingling, no redness of joints Integumentary: no rash, no pruritis, no redness, no sores, no wounds Neurological: no head injury, no paralysis, no weakness, no parathesias, no numbness, no tingling Psychiatric: no anxiety Endocrine: no cold intolerance, no heat intolerance Hematologic/Lymphatic: no easy bruising, no easy bleeding, no lymphadenopathy Allergic/Immunologic: no urticaria, no wheezing, no persistent infections Physical Examination Vital Signs Pulse Resp BP Pulse Ox 81 16 167/115 98 01/01/17 13:08 01/01/17 13:08 01/01/17 13:08 01/01/17 13:08 General appearance: no acute distress HEENT: Positive: PERRL, Normocephaly, Mucus Membranes Moist Neck: Positive: neck supple, trachea midline Cardiac: Positive: Reg Rate and Rhythm, S1/S2, Systolic Murmur Lungs: Positive: clear to auscultation Neuro: Positive: Grossly Intact, Cranial Nerve 2-12 Intact Abdomen: Positive: Unremarkable, Soft, Active Bowel Sounds Skin: Positive: Clear. Negative: Rash, Wound Musculoskeletal: No Fluid Collection, No Pain, Normal Range of Motion Extremities: Absent: edema Results 01/01/17 13:00 01/01/17 13:00 - Imaging and Cardiology Echo: pending EKG: image reviewed EKG interpretations - Telemetry EKG Rhythm: Sinus Rhythm - EKG Sinus rhythms and dysrhythmias: sinus rhythm Chamber hypertrophy or enlargement: left ventricular hypertro Repolarization changes or abnormalities: repolarization abn secondary to ventricular hypertrophy Assessment and Plan Assessment: Chest pain, atypical - initial troponin negative for AMI Abnormal EKG - 2/2 LVH HTN urgency CAD, s/p NV x 2 - no intervention required per pt report CMP / ? IHSS - EF 41% on stress test 05/2014 AICD in situ - pt reports 4 defibrillator shocks in the past; pt on verapamil at home DM H/o heart failure Obesity Plan: Obtain echo. Cont to trend Carolyn. Await DDimer. Repeat EKG in AM. Resume home verapamil, lisinopril, clonidine, imdur, ASA. Initiate lipitor. Obtain lipid panel in AM. [facility] Post-pone stress test at this time until BP is optimized and echo is obtained. Pt has questionable history of hypertrophic CMP/IHSS. Will maintain NPO after MN in the event that emergent ischemic evaluation is warranted. Assessment and plan reviewed with pt at bedside. The patient has been seen in conjunction with Dr. Lo who agrees with the assessment and plan of care.
[2017-01-01] MEDS: IMDUR PO SCH (17:36)
[2017-01-01] MEDS ORDERED: LASIX IV SCH (18:00)
[2017-01-01] MEDS: TYLENOL PO PRN (21:14)
[2017-01-01] MEDS: CATAPRES PO SCH (21:15)
[2017-01-01] MEDS: PEPCID PO SCH (21:16)
[2017-01-02 06:13] LABS: Cholesterol 340 mg/dL (50-199); HDL Cholesterol 32 mg/dL (40-59); LDL Cholesterol,Direct TNR mg/dL (50-130); Triglycerides 628 mg/dL (2-149)
[2017-01-02] MEDS ORDERED: CALAN SR PO SCH (10:00)
--- NOTE | 2017-01-02 10:00 | Progress Note ---
Assessment and Plan Assessment: Chest pain, atypical - currently resolved; Carolyn negative for AMI; DDimer WNL Abnormal EKG - 2/2 LVH HTN urgency - improving CAD, s/p ME x 2 - no intervention required per pt report CMP / ? IHSS - EF 41% on stress test 05/2014 AICD in situ - pt reports 4 defibrillator shocks in the past; pt on verapamil at home DM H/o heart failure Obesity Plan: Obtain echo. Cont present cardiac management, including verapamil, lisinopril, clonidine, imdur, ASA, lipitor. [facility] obtain [facility]. Post-pone stress test at this time until echo is obtained. Pt has questionable history of hypertrophic CMP/IHSS. Lipid panel reviewed - initiate lipitor and lovaza. Assessment and plan reviewed with pt at bedside. The patient has been seen in conjunction with Dr. Hunt who agrees with the assessment and plan of care. Subjective Date of service: 01/02/17 Principal diagnosis: cp Interval history: Pt resting comfortably in bed, no complaints. Awaiting echo. Objective Last Vital Signs Temp 97.1 F L 01/02/17 08:02 Pulse 58 L 01/02/17 08:02 Resp 18 01/02/17 08:02 BP 121/83 01/02/17 08:02 Pulse Ox 98 01/02/17 08:02 - Physical Examination General: Appears Well HEENT: Positive: PERRL, Normocephaly, Mucus Membranes Moist Neck: Positive: neck supple, trachea midline Cardiac: Positive: Reg Rate and Rhythm, S1/S2 Lungs: Positive: clear to auscultation Neuro: Positive: Grossly Intact, Cranial Nerve 2-12 Intact Abdomen: Positive: Unremarkable, Soft, Active Bowel Sounds Skin: Positive: Clear. Negative: Rash, Wound Musculoskeletal: No Fluid Collection, No Pain, Normal Range of Motion Extremities: Absent: edema - Labs and Meds Lipids 01/02/17 Range/Units 05:05 Triglycerides 628 H (2-149) mg/dL Cholesterol 340 H (50-199) mg/dL HDL Cholesterol 32 L (40-59) mg/dL Cholesterol/HDL Ratio 10.62 % - Imaging and Cardiology EKG: image reviewed Echo: pending - EKG Sinus rhythms and dysrhythmias: sinus rhythm Chamber hypertrophy or enlargement: left ventricular hypertro Repolarization changes or abnormalities: repolarization abn secondary to ventricular hypertrophy
--- NOTE | 2017-01-02 12:03 | Event Note ---
Date: 01/02/17 echo reviewed - EF 50%, LVH, no evidence of obstructive CMP. Plan for lexiscan MPI stress test in AM. NPO after MN. Cat VIVEROS NP / DR. GOOD
[2017-01-02] MEDS: LASIX PO SCH (12:31)
[2017-01-02] MEDS: BABY ASPIRIN PO SCH (12:31)
[2017-01-02] MEDS: PEPCID PO SCH ×2 (12:32→21:00)
[2017-01-02] MEDS: TYLENOL PO PRN (12:38)
[2017-01-02] MEDS: IMDUR PO SCH (17:13)
[2017-01-02] MEDS: ZESTRIL PO SCH (17:14)
--- NOTE | 2017-01-02 17:19 | Progress Note ---
Assessment and Plan Assessment and plan: 51 YO Male with HTN, MIx2, CHF, DM, PE, GERD, Gout, Metabolic Syndrome, Obesity presents to ED for evaluation. Pt states that he has experienced pain in his chest for the past 2 days with persistent symptoms over that same time. Pt states that pain is 6-8/10, Midsternal, Crushing in nature, associated with shortness of breath, worsened with exertion, not relieved with rest. Pt states that symptoms not impoved with nitro tablets. Pt denies fever, chills, NVD, pleuritic chest pain, sweating with meals, noncompliance with anticoagulation, hemoptysis, prolonged travel/immobility, leg swelling/calf pain, productive cough, or recent ill contacts. Pt currently on Xarelto for PE and is compliant with therapy. - Patient Problems (1) Diastolic CHF (congestive heart failure) Current Visit: Yes Status: Suspected Qualifiers: Congestive heart failure type: systolic Congestive heart failure chronicity : acute Qualified Code(s): I50.21 - Acute systolic (congestive) heart failure Plan to address problem: BNP, D dimer, serial cardiac enzymes, diuretic therapy, monitor uop q shift, fluid restriction, negative fluid balance. ECHO 45-50% (2) Angina at rest Current Visit: Yes Status: Acute Plan to address problem: Serial cardiac enzymes, ekg, telemetry, continue therapeutic anticoagulation, echo, stress test, cardiology consulted, lipid panel, continue statin therapy Stress test in AM. (3) Hypertension Urgency Current Visit: Yes Status: Acute Plan to address problem: Monitor bp q shift, continue medical management, (4) Diabetes Current Visit: Yes Status: Acute Qualifiers: Diabetes mellitus type: D Diabetes mellitus complication status: D Diabetes mellitus complication detail: D Diabetic retinopathy severity: D Proliferative retinopathy type: P Diabetes mellitus macular edema: D Diabetes mellitus shelter insulin use: D Laterality: L Chronic kidney disease stage: C Plan to address problem: ADA diet, insulin, accu check (5) Pulmonary embolus Current Visit: Yes Status: Acute Qualifiers: Pulmonary embolism type: P Chronicity: C Acute cor pulmonale presence: A Plan to address problem: resume therapeutic anticoagulation, (6) CMP s/p defibrillator -4 defibrillator shocks in the past; pt on verapamil at home AICD in situ (7)Metabolic syndrome Current Visit: Yes Status: Acute Plan to address problem: Balanced diet, lowfat diet, increased physical activity at discharge. (8) Dyslipidemia -per patient improved from the 700s. -Continue statin. (9)DVT prophylaxis Current Visit: Yes Status: Acute History Interval history: Patient seen and examined, in no acute distress. reports improvement Hospitalist Physical - Constitutional Vitals: Temp Pulse Resp BP Pulse Ox 98.6 F 58 L 16 121/83 98 01/02/17 12:00 01/02/17 17:14 01/02/17 10:00 01/02/17 17:14 01/02/17 12:06 General appearance: Present: no acute distress, well-nourished - EENT Eyes: Present: PERRL, EOM intact ENT: hearing intact, dentition normal - Neck Neck: Present: supple, normal ROM - Respiratory Respiratory: bilateral: CTA - Cardiovascular Rhythm: regular Heart Sounds: Present: S1 & S2. Absent: systolic murmur, diastolic murmur - Extremities Extremities: no ischemia, pulses intact, pulses symmetrical, No edema, normal temperature, normal color, Full ROM Peripheral Pulses: within normal limits - Abdominal General gastrointestinal: soft, non-tender, non-distended, normal bowel sounds - Integumentary Integumentary: Present: clear, warm, dry - Psychiatric Psychiatric: appropriate mood/affect, intact judgment & insight, cooperative - Neurologic Neurologic: CNII-XII intact, moves all extremities - Allied Health Allied health notes reviewed: nursing Results - Labs CBC & Chem 7: 01/01/17 13:00 01/03/17 05:46 Labs: Laboratory Last Values WBC 8.1 K/mm3 (4.5-11.0) 01/01/17 13:00 RBC 4.62 M/mm3 (3.65-5.03) 01/01/17 13:00 Hgb 14.2 gm/dl (11.8-15.2) 01/01/17 13:00 Hct 42.4 % (35.5-45.6) 01/01/17 13:00 MCV 92 fl (84-94) 01/01/17 13:00 MCH 31 pg (28-32) 01/01/17 13:00 MCHC 33 % (32-34) 01/01/17 13:00 RDW 14.9 % (13.2-15.2) 01/01/17 13:00 Plt Count 214 K/mm3 (140-440) 01/01/17 13:00 Lymph % (Auto) 26.1 % (13.4-35.0) 01/01/17 13:00 [place] % (Auto) 10.2 % (0.0-7.3) H 01/01/17 13:00 Eos % (Auto) 1.2 % (0.0-4.3) 01/01/17 13:00 Baso % (Auto) 0.8 % (0.0-1.8) 01/01/17 13:00 Lymph # 2.1 K/mm3 (1.2-5.4) 01/01/17 13:00 [place] # 0.8 K/mm3 (0.0-0.8) 01/01/17 13:00 Eos # 0.1 K/mm3 (0.0-0.4) 01/01/17 13:00 Baso # 0.1 K/mm3 (0.0-0.1) 01/01/17 13:00 Seg Neutrophils % 61.7 % (40.0-70.0) 01/01/17 13:00 Seg Neutrophils # 5.0 K/mm3 (1.8-7.7) 01/01/17 13:00 D-Dimer 156.42 ng/mlDDU (0-234) 01/01/17 15:58 Sodium 136 mmol/L (137-145) L 01/01/17 13:00 Potassium 4.4 mmol/L (3.6-5.0) 01/01/17 13:00 Chloride 98.2 mmol/L (98-107) 01/01/17 13:00 Carbon Dioxide 25 mmol/L (22-30) 01/01/17 13:00 Anion Gap 17 mmol/L 01/01/17 13:00 BUN 13 mg/dL (9-20) 01/01/17 13:00 Creatinine 1.2 mg/dL (0.8-1.5) 01/01/17 13:00 Estimated GFR > 60 ml/min 01/01/17 13:00 BUN/Creatinine Ratio 11 % 01/01/17 13:00 Glucose 237 mg/dL (75-100) H 01/01/17 13:00 POC Glucose 158 (70-105) H 01/02/17 08:03 Calcium 8.9 mg/dL (8.4-10.2) 01/01/17 13:00 Troponin T < 0.010 ng/mL (0.00-0.029) 01/01/17 19:59 NT-Pro-B Natriuret Pep 579.3 pg/mL (0-450) H 01/01/17 15:58 Triglycerides 628 mg/dL (2-149) H 01/02/17 05:05 Cholesterol 340 mg/dL (50-199) H 01/02/17 05:05 LDL Cholesterol Direct TNR 01/02/17 05:05 HDL Cholesterol 32 mg/dL (40-59) L 01/02/17 05:05 Cholesterol/HDL Ratio 10.62 % 01/02/17 05:05
[2017-01-02] MEDS: FISH OIL PO SCH (21:00)
[2017-01-02] MEDS: LOPRESSOR PO SCH (21:00)
[2017-01-02] MEDS: CATAPRES PO SCH (21:00)
[2017-01-03] MEDS ORDERED: PERCOCET 5/325 PO PRN (00:38)
[2017-01-03 06:35] LABS: BUN/Creatinine Ratio 19; Blood Urea Nitrogen 17 mg/dL (9-20); Calcium 9.2 mg/dL (8.4-10.2); Carbon Dioxide 26 mmol/L (22-30); Chloride 97.9 mmol/L (98-107); Glucose 190 mg/dL (75-100); Sodium 138 mmol/L (137-145)
[2017-01-03 06:44] LABS: Anion Gap 20 mmol/L; Potassium 5.4 mmol/L (3.6-5.0)
[2017-01-03] MEDS ORDERED: LEXISCAN IV ONE (08:44)
[2017-01-03] MEDS ORDERED: KIONEX PO NR (09:00)
[2017-01-03] MEDS: FISH OIL PO SCH (10:03)
--- NOTE | 2017-01-03 11:23 | Discharge Summary ---
Providers - Providers Date of Admission: 01/01/17 13:57 Attending physician: WINNIE ARZOLA MD Primary care physician: LOGISTICS ANALYST Hospitalization Reason for admission: chest pain Condition: Stable Hospital course: 51 YO Male with HTN, MIx2, CHF, DM, PE, GERD, Gout, Metabolic Syndrome, Obesity presents to ED for evaluation. Pt states that he has experienced pain in his chest for the past 2 days with persistent symptoms over that same time. Pt states that pain is 6-8/10, Midsternal, Crushing in nature, associated with shortness of breath, worsened with exertion, not relieved with rest. Pt states that symptoms not impoved with nitro tablets. Pt denies fever, chills, NVD, pleuritic chest pain, sweating with meals, noncompliance with anticoagulation, hemoptysis, prolonged travel/immobility, leg swelling/calf pain, productive cough, or recent ill contacts. Pt currently on Xarelto for PE and is compliant with therapy. Patient was noted to have diastolic heart failure was treated with diuretic therapy. Patient proceeded to have a stress test that was negative. patient had elevated BP. I personally rechecked the BP after the medications were given before patient was discharged and it was 160/89. Weight loss strongly encouraged. Also encouraged to continue his professed habit of keeping a BP diary Chest pain, atypical secondary to costochondritis Diabetes Mellitus Metabolic Syndrome Chronic PE Abnormal EKG - 2/2 LVH HTN urgency CAD, s/p HI x 2 CMP AICD in situ DM H/o heart failure Obesity Disposition: DC-01 TO HOME OR SELFCARE Time spent for discharge: 35 mins Core Measure Documentation - Palliative Care Palliative Care/ Comfort Measures: Not Applicable - Core Measures Any of the following diagnoses?: none - VTE Discharge Requirements Deep Vein Thrombosis/Pulmonary Embolism Present on Admission: No Exam - Physical Exam Narrative exam: VITAL SIGNS: Reviewed. GENERAL: The patient appeared well nourished and normally developed. Obese. Vital signs as documented. HEAD: No signs of head trauma. EYES: Pupils are equal. Extraocular motions intact. EARS: Hearing grossly intact. MOUTH: Oropharynx is normal. NECK: No adenopathy, no JVD. CHEST: Chest with clear breath sounds bilaterally. No wheezes, rales, or rhonchi. CARDIAC: Regular rate and rhythm. S1 and S2, without murmurs, gallops, or rubs. VASCULAR: No Edema. Peripheral pulses normal and equal in all extremities. ABDOMEN: Soft, without detectable tenderness. No sign of distention. No rebound or guarding, and no masses palpated. Bowel Sounds normal. MUSCULOSKELETAL: Good range of motion of all major joints. Extremities without clubbing, cyanosis or edema. NEUROLOGIC EXAM: Alert and oriented x 3. No focal sensory or strength deficits. Speech normal. Follows commands. PSYCHIATRIC: Mood normal. SKIN: No rash or lesions. - Constitutional Vitals: Temp Pulse Resp BP Pulse Ox 97.9 F 64 18 155/106 97 01/03/17 04:40 01/03/17 04:40 01/03/17 04:40 01/03/17 04:40 01/03/17 04:40 Plan Activity: advance as tolerated, fall precautions Diet: low salt, diabetic Special Instructions: record daily BP diary, record blood sugar diary Additional Instructions: needs BP check in 3 days WITH PCP Follow up with: PRIMARY MD AAMIR [Primary Care Provider] - 3-5 Days REMY VALDES MD [Staff Physician] - 7 Days Prescriptions: AtorvaSTATin [Lipitor] 80 mg PO QHS #30 tablet Clonidine HCl [Catapres] 0.3 mg PO DAILY #30 tablet glyBURIDE [Diabeta] 5 mg PO DAILY #30 tablet ISOSORBIDE MONOnitrate [Imdur ER] 60 mg PO DAILY #30 tablet Lisinopril 40 mg PO DAILY #30 Metoprolol [Lopressor TAB] 50 mg PO BID #60 tablet Rivaroxaban [Xarelto] 20 mg PO QDAY #30 tablet
[2017-01-03 11:34] VITALS: BP 204/122
--- NOTE | 2017-01-03 11:50 | Progress Note ---
Assessment and Plan Assessment: Chest pain, atypical - currently resolved; Carolyn negative for AMI; DDimer WNL Abnormal EKG - 2/2 LVH HTN urgency - improving CAD, s/p OR x 2 - no intervention required per pt report CMP AICD in situ DM H/o heart failure Obesity Plan: s/p lexiscan MPI stress test this AM which was negative for ischemia, EF 42%. Currently stable cardiac status. Cont present cardiac management. Pt may discharge home from cardiology standpoint. Recommend pt to follow up with [facility] delivery table operator within 1-2 weeks of hospital discharge. Assessment and plan reviewed with pt at bedside. The patient has been seen in conjunction with Dr. Hunt who agrees with the assessment and plan of care. Subjective Date of service: 01/03/17 Principal diagnosis: cp Interval history: Pt for stress test today. no complaints. Objective Last Vital Signs Temp 97.9 F 01/03/17 04:40 Pulse 68 01/03/17 09:02 Resp 18 01/03/17 04:40 BP 204/122 01/03/17 09:02 Pulse Ox 97 01/03/17 04:40 - Physical Examination General: Appears Well HEENT: Positive: PERRL, Normocephaly, Mucus Membranes Moist Neck: Positive: neck supple, trachea midline Cardiac: Positive: Reg Rate and Rhythm, S1/S2 Lungs: Positive: clear to auscultation Neuro: Positive: Grossly Intact, Cranial Nerve 2-12 Intact Abdomen: Positive: Unremarkable, Soft, Active Bowel Sounds Skin: Positive: Clear. Negative: Rash, Wound Musculoskeletal: No Fluid Collection, No Pain, Normal Range of Motion Extremities: Absent: edema - Labs and Meds Comprehensive Metabolic Panel 01/03/17 Range/Units 05:46 Sodium 138 (137-145) mmol/L Potassium 5.4 H D (3.6-5.0) mmol/L Chloride 97.9 L (98-107) mmol/L Carbon Dioxide 26 (22-30) mmol/L BUN 17 (9-20) mg/dL Creatinine 0.9 (0.8-1.5) mg/dL Glucose 190 H (75-100) mg/dL Calcium 9.2 (8.4-10.2) mg/dL - Imaging and Cardiology EKG: image reviewed Echo: pending - EKG Sinus rhythms and dysrhythmias: sinus rhythm Chamber hypertrophy or enlargement: left ventricular hypertro Repolarization changes or abnormalities: repolarization abn secondary to ventricular hypertrophy
[2017-01-03] MEDS: IMDUR PO SCH (12:02)
[2017-01-03] MEDS: LOPRESSOR PO SCH (12:02)
[2017-01-03] MEDS: PEPCID PO SCH (12:03)
[2017-01-03] MEDS: BABY ASPIRIN PO SCH (12:03)
[2017-01-03] MEDS: LASIX PO SCH (12:04)
[2017-01-03] MEDS: ZESTRIL PO SCH (12:04)
--- NOTE | 2017-01-03 22:48 | Treadmill Report ---
NUCLEAR PERFUSION SCAN DATE OF SERVICE: 01/03/2017 REFERRING PHYSICIAN: Dr. Hunt PROCEDURE PROTOCOL: The patient was brought to the stress lab in a post-absorptive state, given 10 mCi of technetium 99m at rest. The patient underwent rest imaging. The patient underwent Lexiscan stress test. At peak stress, the patient was given 26 mCi of technetium-99m. Shortly thereafter, the patient underwent stress imaging. Raw imaging reveals mild GI artifact. No significant motion artifact. SPECT imaging examined carefully in the horizontal long axis, vertical long axis, and short axis views. There is normal homogenous uptake of radioisotope in all reported segments. No evidence of significant fixed or reversible perfusion defects suggestive of prior infarction or ischemia. Gated wall motion reveals mild global left ventricular hypokinesis with the calculated ejection fraction of 42%. No TID. CONCLUSIONS: 1. Normal myocardial perfusion scan without evidence of active ischemia or prior infarction. 2. Mild global left ventricular hypokinesis with the calculated ejection fraction of 42%. No TID. JOB# [id number] SBM/NTS
== END 2017-01-03 17:00 | disposition home or self-care (01) | DRG 205 ==
LOC: ED 12:56 → 4A 13:57
PROVIDERS: ADMIT Internal Medicine; ATTEND Internal Medicine
DX: M94.0 Chondrocostal junction syndrome [Tietze] (principal); I26.99 Other pulmonary embolism without acute cor pulmonale; I50.41 Acute combined systolic (congestive) and diastolic (congestive) heart failure; I42.2 Other hypertrophic cardiomyopathy; I11.0 Hypertensive heart disease with heart failure; I16.0 Hypertensive urgency; E88.81 Metabolic syndrome and other insulin resistance; E66.9 Obesity, unspecified; Z68.35 Body mass index [BMI] 35.0-35.9, adult; E11.9 Type 2 diabetes mellitus without complications; I25.10 Atherosclerotic heart disease of native coronary artery without angina pectoris; I25.2 Old myocardial infarction; I25.119 Atherosclerotic heart disease of native coronary artery with unspecified angina pectoris; K21.9 Gastro-esophageal reflux disease without esophagitis; Z95.810 Presence of automatic (implantable) cardiac defibrillator
CPT/HCPCS: 36415; 71010; 78452; 80048; 80061; 82962; 83880; 84484; 85025; 85379; 93005; 93010; 93017; 93306; A9270-GY; A9502; J2270; J2785

== ENCOUNTER 2017-06-04 08:05 | Day surgery (SDC) | payer MEDICARE, OTHER ==
--- NOTE | 2017-06-04 08:46 | Short Stay Summary ---
Short Stay Documentation Date of service: 06/04/17 Narrative H&P: 51 year old presenting for colonoscopy for evaluation of abdominal pain. - History Principal diagnosis: abdominal pain Past Medical History: anemia, CAD (history AR), diabetes, GERD, hypertension, hyperlipidemia, liver disease (liver lesion work up in progress at [facility]), other (AICD) Past Surgical History: CABG, hernia repair, Other (EGD, colonoscopy, AICD implantation) - Allergies and Medications Current Medications: Allergies heparin Allergy (Mild, Verified 09/08/16 16:35) Hives metformin Allergy (Mild, Verified 09/08/16 16:35) Hives Home Medications Medication Instructions Recorded Confirmed Last Taken Type Adult Low Dose Aspirin EC 81 mg PO DAILY 05/05/16 01/16/17 01/01/17 History ALBUTEROL Inhaler [ProAir HFA 2 puff IH QID PRN 01/01/17 01/16/17 Unknown History Inhaler] Allopurinol [Zyloprim] 300 mg PO DAILY 01/01/17 01/16/17 01/01/17 History AtorvaSTATin [Lipitor] 80 mg PO QHS #30 tablet 01/03/17 01/16/17 Unknown Rx Clonidine HCl [Catapres] 0.3 mg PO DAILY #30 tablet 01/03/17 01/16/17 Unknown Rx ISOSORBIDE MONOnitrate [Imdur ER] 60 mg PO DAILY #30 tablet 01/03/17 01/16/17 Unknown Rx Lisinopril 40 mg PO DAILY #30 01/03/17 01/16/17 Unknown Rx Rivaroxaban [Xarelto] 20 mg PO QDAY #30 tablet 01/03/17 01/16/17 Unknown Rx Metoprolol [Lopressor TAB] 100 mg PO BID #30 tablet 01/18/17 Unknown Rx glyBURIDE [Diabeta] 5 mg PO QDDIAB #1 tablet 01/18/17 Unknown Rx traMADol [Ultram] 50 mg PO Q6HR PRN #14 tablet 01/18/17 Unknown Rx Active Medications Sodium Chloride (Nacl 0.9% 1000 Ml) 1,000 mls @ 50 mls/hr IV DIRECT BRITTANI - Physical exam General appearance: no acute distress, well-nourished HEENT: PERRLA, EOMI Lungs: Clear to auscultation Heart: Regular rate, Normal S1, Normal S2 Gastrointestinal: normal, obese, other (soft, nontender) Neurological: Normal speech - Hospital course Hospital course: Uneventful colonoscopy. - Disposition Condition at discharge: Good Disposition: [id number] TO HOME OR SELFCARE - Discharge Diagnoses (1) Colon polyp Status: Acute (2) Diverticulosis of colon Status: Acute (3) Internal hemorrhoids Status: Acute (4) Abdominal pain Status: Acute Comment: not explained by this exam Short Stay Discharge Plan Activity: other (no driving today) Diet: other (may resume usual diet) Additional Instructions: 1. Patient to call for path results in 2 weeks. 2. Follow up with [facility] physicians regarding liver lesion and abdominal pain. Follow up with: TONIO ROBERTS MD [Primary Care Provider] - 7 Days
[2017-06-04] MEDS ORDERED: NACL 0.9% 1000 ML 1,000 ML IV SCH (09:00)
[2017-06-04] MEDS ORDERED: WATER FOR IRRIG STERILE IR ONE (09:36)
[2017-06-04] MEDS ORDERED: DIPRIVAN 10 MG/ML IV ONE ×3 (09:41)
--- NOTE | 2017-06-04 10:19 | Operative Report ---
Operative Report Operative Report: Date of procedure: 06/04/2017 Preprocedure diagnosis: Abdominal pain Post procedure diagnosis: Colon polyp, diverticulosis, internal hemorrhoids Procedure name(s): Colonoscopy and snare polypectomy Surgeon: Harvinder Guevara MD Anesthesia: Monitored anesthesia care EBL: None Procedure: The indications, techniques, potential complications and alternatives , had been discussed in full detail prior to the date of the exam, and once again on the day of the exam. Questions were encouraged and answered, and consent was thereby obtained. The patient was placed in the left lateral decubitus position, and was medicated by anesthesia services. See the anesthesia records for details. The anal sphincter was digitally dilated. The digital exam was unremarkable. The tip of a [place] video colonoscope was inserted through the anal sphincter and into the rectal vault. It was then advanced proximally under continuous visualization of the lumen to the cecum without difficulty. The prep was adequate. The pathology was seen in the cecum. The appendiceal orifice and ileocecal valve were identified and appeared normal. From the cecum, the instrument was slowly withdrawn with careful circumferential examination of the colonic mucosa. No pathology was seen in the ascending colon or hepatic flexure. A 4-5 mm sessile polyp was excised from the mid transverse colon with a cold snare and retrieved. Bleeding was minimal. The remainder the transverse colon appeared normal, as did the splenic flexure and descending colon. Rare diverticula were seen in the sigmoid colon. No additional polyps were found. The rectum appeared normal from the forward view. Retroflexion in the rectum revealed internal hemorrhoids. The instrument was straightened and withdrawn. The procedure was very well tolerated. Post procedure he was monitored in the recovery area of the GI lab to ensure stability prior was release. See the outpatient record for details regarding instructions to patient, medications and plans for follow-up. Final diagnosis: 1. Sessile polyp, 4-5 mm, transverse colon 2. Minimal diverticulosis, sigmoid colon 3. Internal hemorrhoids 4. Otherwise normal exam, no explanation for abdominal pain Harvinder Guevara M.D. Dictated 06/04/2017 at 10:14 AM
[2017-06-04 10:33] VITALS: BP 117/83
--- NOTE | 2017-06-04 14:48 | Anesthesia Consultation ---
Anesthesia Consult and Med Hx Date of service: 06/04/17 - Airway ROM Head & Neck: Adequate Mental/Hyoid Distance: Adequate Mallampati Class: Class II Intubation Access Assessment: Probably Good - Pre-Operative Health Status ASA Pre-Surgery Classification: ASA3 Proposed Anesthetic Plan: MAC - Pulmonary Hx Smoking: No Hx Asthma: No COPD: No Hx Pneumonia: No - Cardiovascular System Hx Hypertension: Yes Hx Coronary Artery Disease: Yes Hx Heart Attack/AMI: Yes Hx Internal Defibrillator: Yes - Central Nervous System CVA: Yes (10/2014) - Gastrointestinal Hx Gastroesophageal Reflux Disease: Yes - Endocrine Hx Insulin Dependent Diabetes: Yes - Hematic Hx Anemia: Yes Hx Sickle Cell Disease: No - Other Systems Hx Alcohol Use: No Hx Substance Use: No Hx Cancer: No Hx Obesity: Yes - Additional Comments Anesthesia Medical History Comments: AICD. PONV
--- NOTE | 2017-06-04 14:49 | Anesthesia Day of Surgery ---
Anesthesia Day of Surgery - Day of Surgery Patient Examined: Yes Patient H&P Reviewed: Yes Patient is NPO: Yes
--- NOTE | 2017-06-04 14:49 | Post Anesthesia Evaluation ---
- Post Anesthesia Evaluation Patient Participated: Yes Airway Patent: Yes Stable Respiratory Function: Yes Nausea/Vomiting: No Temp > 96.8F: Yes Pain Manageable: Yes Adequeate Hydration: Yes Anesthesia Complications: No
== END 2017-06-04 08:06 | disposition home or self-care (01) ==
LOC: GIO 08:05
PROVIDERS: ATTEND Internal Medicine Gastroenterology
DX: D12.3 Benign neoplasm of transverse colon (principal); K57.30 Diverticulosis of large intestine without perforation or abscess without bleeding; K64.8 Other hemorrhoids; I25.2 Old myocardial infarction; I25.10 Atherosclerotic heart disease of native coronary artery without angina pectoris; I10 Essential (primary) hypertension; E78.5 Hyperlipidemia, unspecified; Z95.1 Presence of aortocoronary bypass graft; Z95.810 Presence of automatic (implantable) cardiac defibrillator; Z88.8 Allergy status to other drugs, medicaments and biological substances; Z79.899 Other long term (current) drug therapy
CPT/HCPCS: 45385; 82962; 88305; J2704; J7030

== ENCOUNTER 2017-08-23 12:26 | Inpatient (IN) | payer MEDICARE, OTHER ==
[2017-08-23 13:45] LABS: Basophils # (Auto) 0.1 K/mm3 (0.0-0.1); Basophils % (Auto) 0.9 % (0.0-1.8); Eosinophils # (Auto) 0.1 K/mm3 (0.0-0.4); Eosinophils % (Auto) 0.8 % (0.0-4.3); Lymphocytes % (Auto) 27.9 % (13.4-35.0); Mean Corpuscular HGB Conc 36 % (32-34); Mean Corpuscular Hemoglobin 32 pg (28-32); Mean Corpuscular Volume 89 fl (84-94); Monocytes # (Auto) 0.7 K/mm3 (0.0-0.8); Monocytes % (Auto) 9.5 % (0.0-7.3); Platelet Count 267 K/mm3 (140-440); Red Blood Count 5.13 M/mm3 (3.65-5.03); Red Cell Distribution Width 13.4 % (13.2-15.2)
[2017-08-23 14:01] LABS: Hematocrit 45.5 % (35.5-45.6); Hemoglobin 16.3 gm/dl (11.8-15.2)
[2017-08-23 16:12] LABS: BUN/Creatinine Ratio 30; Blood Urea Nitrogen 33 mg/dL (9-20); Calcium 9.9 mg/dL (8.4-10.2); Hemolysis Index 67
[2017-08-23] MEDS ORDERED: BABY ASPIRIN PO ONE (17:33)
--- NOTE | 2017-08-23 17:36 | Emergency Department Report ---
ED Chest Pain HPI - General Chief Complaint: Chest Pain Stated Complaint: SOB/CHEST PAIN Time Seen by Provider: 08/23/17 17:24 Source: patient Mode of arrival: Ambulatory Limitations: No Limitations - History of Present Illness Initial Comments: 51-year-old male presents to the emergency department with complaint of some midsternal to left-sided chest pain that's been going on since last night. It has been getting progressively worse but now he says that he gets these intermittent squeezing sensations in the chest. It is associated with some nausea without vomiting and some shortness of breath. The patient has a history of multiple pulmonary emboli in the past and says that he is supposed to get switched to a different anticoagulant but currently is not on anything. He has a past medical history of gouty arthritis, CHF, insulin- dependent diabetes, GERD, coronary artery disease with [place] 2, hypertension, TIA , hypertrophic cardiomyopathy and the patient has a defibrillator in place. He was supposed to see his compliance tester at the [facility] today but the symptoms him to make that appointment. No recent travel or sick contacts at home. He takes a daily 81 mg aspirin. - Related Data Home Medications Medication Instructions Recorded Confirmed Last Taken Adult Low Dose Aspirin EC 81 mg PO DAILY 05/05/16 01/16/17 05/28/17 ALBUTEROL Inhaler [ProAir HFA 2 puff IH QID PRN 01/01/17 01/16/17 Unknown Inhaler] Allopurinol [Zyloprim] 300 mg PO DAILY 01/01/17 01/16/17 01/01/17 Carvedilol [Coreg] 25 mg PO 06/04/17 06/04/17 Chlorthalidone [Thalitone] 25 mg PO QDAY 06/04/17 06/04/17 06/04/17 amLODIPine [Norvasc] 10 mg PO DAILY 06/04/17 06/04/17 06/04/17 Previous Rx's Medication Instructions Recorded Last Taken Type AtorvaSTATin [Lipitor] 80 mg PO QHS #30 tablet 01/03/17 06/03/17 Rx Clonidine HCl [Catapres] 0.3 mg PO DAILY #30 tablet 01/03/17 06/04/17 Rx ISOSORBIDE MONOnitrate [Imdur ER] 60 mg PO DAILY #30 tablet 01/03/17 Unknown Rx Lisinopril 40 mg PO DAILY #30 10/18/17 Unknown Rx Rivaroxaban [Xarelto] 20 mg PO QDAY #30 tablet 01/03/17 Unknown Rx Metoprolol [Lopressor TAB] 100 mg PO BID #30 tablet 01/18/17 Unknown Rx glyBURIDE [Diabeta] 5 mg PO QDDIAB #1 tablet 01/18/17 Unknown Rx traMADol [Ultram 50 MG tab] 50 mg PO Q6HR PRN #14 tablet 01/18/17 Unknown Rx Allergies Allergy/AdvReac Type Severity Reaction Status Date / Time heparin Allergy Mild Hives Verified 09/08/16 16:35 metformin Allergy Mild Hives Verified 09/08/16 16:35 Heart Score - HEART Score History: Moderately suspicious EKG: Non-specific Age: 45-65 Risk factors: > 3 risk factors or hx of atherosclerotic disease Troponin: 1-3x normal limit HEART Score: 6 - Critical Actions Critical Actions: 4-6 pts:12-16.6% risk of adverse cardiac event. Should be admitted ED Review of Systems ROS: Stated complaint: SOB/CHEST PAIN Other details as noted in HPI Comment: All other systems reviewed and negative Constitutional: denies: chills, fever Eyes: denies: eye pain, eye discharge, vision change ENT: denies: ear pain, throat pain Respiratory: shortness of breath. denies: cough Cardiovascular: chest pain. denies: edema Gastrointestinal: nausea. denies: vomiting, diarrhea Genitourinary: denies: urgency, dysuria Musculoskeletal: denies: back pain, joint swelling, arthralgia Skin: denies: rash, lesions Neurological: denies: headache, weakness, paresthesias ED Past Medical Hx - Past Medical History Previous Medical History?: Yes Hx Hypertension: Yes Hx Heart Attack/AMI: Yes Hx Congestive Heart Failure: Yes Hx Diabetes: Yes Hx Pulmonary Embolism: Yes Hx GERD: Yes Hx Sickle Cell Disease: No Hx Arthritis: Yes (GOUT) Hx Asthma: No Hx COPD: No Hx HIV: No Additional medical history: HYPERTROPHIC CARDIOMYOPATHY. TIA - Surgical History Past Surgical History?: Yes Hx Coronary Stent: Yes Hx Open Heart Surgery: Yes (DEFIBRILLATOR) Hx Internal Defibrillator: Yes Additional Surgical History: LEFT ELBOW. DOUBLE HERNIA REPAIR. LEFT AND RIGHT MENISCUS - Social History Smoking Status: Never Smoker Substance Use Type: None - Medications Home Medications: Home Medications Medication Instructions Recorded Confirmed Last Taken Type Adult Low Dose Aspirin EC 81 mg PO DAILY 05/05/16 01/16/17 05/28/17 History ALBUTEROL Inhaler [ProAir HFA 2 puff IH QID PRN 01/01/17 01/16/17 Unknown History Inhaler] Allopurinol [Zyloprim] 300 mg PO DAILY 01/01/17 01/16/17 01/01/17 History AtorvaSTATin [Lipitor] 80 mg PO QHS #30 tablet 01/03/17 01/16/17 06/03/17 Rx Clonidine HCl [Catapres] 0.3 mg PO DAILY #30 tablet 01/03/17 01/16/17 06/04/17 Rx ISOSORBIDE MONOnitrate [Imdur ER] 60 mg PO DAILY #30 tablet 01/03/17 01/16/17 Unknown Rx Lisinopril 40 mg PO DAILY #30 01/03/17 01/16/17 Unknown Rx Rivaroxaban [Xarelto] 20 mg PO QDAY #30 tablet 01/03/17 01/16/17 Unknown Rx Metoprolol [Lopressor TAB] 100 mg PO BID #30 tablet 01/18/17 Unknown Rx glyBURIDE [Diabeta] 5 mg PO QDDIAB #1 tablet 01/18/17 Unknown Rx traMADol [Ultram 50 MG tab] 50 mg PO Q6HR PRN #14 tablet 01/18/17 Unknown Rx Carvedilol [Coreg] 25 mg PO 06/04/17 06/04/17 History Chlorthalidone [Thalitone] 25 mg PO QDAY 06/04/17 06/04/17 06/04/17 History amLODIPine [Norvasc] 10 mg PO DAILY 06/04/17 06/04/17 06/04/17 History ED Physical Exam - General Limitations: No Limitations - Other Other exam information: GENERAL: The patient is well-developed well-nourished. HENT: Normocephalic. Atraumatic. Patient has moist mucous membranes. EYES: Extraocular motions are intact. Pupils equal reactive to light bilaterally. NECK: Supple. Trachea is midline. CHEST/LUNGS: Clear to auscultation. There is no respiratory distress noted. HEART/CARDIOVASCULAR: Regular. There is no tachycardia. There is no murmur. ABDOMEN: Abdomen is soft, nontender. Patient has normal bowel sounds. There is no abdominal distention. SKIN: Skin is warm and dry. NEURO: The patient is awake, alert, and oriented. The patient is cooperative. The patient has no focal neurologic deficits. The patient has normal speech. MUSCULOSKELETAL: There is no tenderness or deformity. There is no limitation range of motion. There is no evidence of acute injury. ED Course Vital Signs 08/23/17 08/23/17 12:38 18:44 Temperature 98.6 F Pulse Rate 95 H 95 H Respiratory 18 14 Rate Blood Pressure 158/107 Blood Pressure 155/104 [Left] O2 Sat by Pulse 96 99 Oximetry HARSHAL score - Harshal Score Age > 65: (0) No Aspirin use within the Past 7 Days: (1) Yes 3 or more CAD Risk Factors: (1) Yes 2 or more Angina events in past 24 hrs: (1) Yes Known CAD with more than 50% Stenosis: (0) No Elevated Cardiac Markers: (0) No ST Deviation Greater than 0.5mm: (1) Yes HARSHAL Score: 4 ED Medical Decision Making - Lab Data Result diagrams: 08/23/17 12:52 08/23/17 12:52 - EKG Data -: EKG Interpreted by Me EKG shows normal: sinus rhythm, axis, intervals, QRS complexes (LVH with repolarization, anterior q waves), ST-T waves ( t wave inversions to inferior and lateral leads) Rate: normal - EKG Data When compared to previous EKG there are: no significant change Interpretation: unchanged when compared t (01/16/17) - Radiology Data Radiology results: image reviewed interpreted by me: Chest x-ray does not show any acute process. There are no pleural effusions, obvious pneumonia and there is no pneumothorax. - Medical Decision Making The patient's troponins have been within the "normal range" but they're not 0 and this is elevated from his previous visit in December of last year. He does not have any renal insufficiency. Chest x-ray does not show any acute process. EKG is unchanged from previous. Despite the fact the patient has not been getting anticoagulation, his dimer is low and therefore no CT angiography of the chest was done at this time. However he will be started on Eliquist. He' ll be admitted to hospital for further evaluation and treatment and probable cardio consultation. The patient was accepted for admission by the daytime hospitalist, but I was instructed to add bridging orders under the night time hospitalist, Dr Tena. - Differential Diagnosis [place], PE, Costochondritis, Pneumonia, GERD Critical Care Time: No Critical care attestation.: If time is entered above; I have spent that time in minutes in the direct care of this critically ill patient, excluding procedure time. ED Disposition Clinical Impression: History of pulmonary embolism, Subtherapeutic anticoagulation, Chest pain, rule out acute myocardial infarction Hypertension Qualifiers: Hypertension type: essential hypertension Qualified Code(s): I10 - Essential ( primary) hypertension Disposition: OP ADMIT IP TO THIS HOSP Is pt being admited?: Yes Condition: Stable Instructions: Chest Pain (ED), Hypertension (ED) Referrals: PRIMARY CARE, [Primary Care Provider] - 3-5 Days Time of Disposition: 18:29
[2017-08-23] MEDS ORDERED: HumuLIN R IV ONE (17:40)
--- NOTE | 2017-08-23 18:33 | XRay Report ---
FINAL REPORT EXAM: XR CHEST 1V AP HISTORY: CP TECHNIQUE: AP portable view of the chest PRIORS: CXR 12/31/2016 FINDINGS: Lines, tubes, and devices: Single lead left subclavian pacemaker terminates in the right ventricle, unchanged. Lungs and pleura: Trachea is normal in position. Lungs are clear of infiltrate, pleural effusion, vascular congestion, or pneumothorax. No change. Cardiomediastinal silhouette: Cardiac and mediastinal silhouettes are unremarkable. Other: Bony structures are intact. IMPRESSION: No acute cardiopulmonary process seen. No change.
[2017-08-23] MEDS ORDERED: ZOFRAN IV PRN (22:05)
[2017-08-23] MEDS ORDERED: TYLENOL PO PRN (22:10)
[2017-08-23] MEDS ORDERED: D50W (25GM) Syringe IV PRN (22:13)
[2017-08-23] MEDS: HumuLIN R SUB-Q SCH (23:17)
[2017-08-23] MEDS: ELIQUIS PO SCH (23:27)
[2017-08-24] MEDS: HumuLIN R SUB-Q SCH ×5 (02:25→21:56)
[2017-08-24 03:15] LABS: Chol/HDL Ratio 15.41 %; HDL Cholesterol 39 mg/dL (40-59)
[2017-08-24 03:34] LABS: LDL Cholesterol,Direct TNR mg/dL (50-130)
[2017-08-24] MEDS: MORPHINE IV PRN ×2 (06:39→14:45)
--- NOTE | 2017-08-24 06:46 | History and Physical Report ---
CHIEF COMPLAINT: Chest pain. HISTORY OF PRESENT ILLNESS: The patient is a 51-year-old male, who presented with left-sided chest pain going on since the night before presentation and patient stated the pain became progressively worse, wheezing in nature and was associated with nausea without vomiting and also was associated with shortness of breath. The patient has had multiple pulmonary emboli in the past and was supposed to be on anticoagulant. He is currently not on any because he said he was supposed to be switched to a new anticoagulant. PAST MEDICAL HISTORY: Pertinent for gout, arthritis, congestive heart failure, insulin-dependent diabetes mellitus, gastroesophageal reflux disease, coronary artery disease with myocardial infarction twice, hypertension, TIA, hypertrophy, cardiomyopathy. PAST SURGICAL HISTORY: Defibrillator placement, coronary stent, open heart surgery, left elbow surgery, double hernia repair, left and right meniscal surgery. FAMILY HISTORY: Noncontributory. SOCIAL HISTORY: The patient does not smoke, does not drink alcohol, and does not use illicit drugs. MEDICATIONS: The patient is on aspirin 81 mg daily, albuterol inhaler 2 puff inhalation 4 times a day, allopurinol 300 mg daily, atorvastatin 80 mg at bedtime, clonidine 0.3 mg by mouth daily, isosorbide mononitrate 60 mg by mouth daily, lisinopril 40 mg by mouth daily, Xarelto 20 mg by mouth daily, Lopressor 100 mg by mouth twice daily, glyburide 5 mg by mouth everyday, carvedilol 25 mg by mouth daily, tramadol 50 mg by mouth every 6 hours as needed for pain, chlorthalidone 25 mg by mouth daily, amlodipine 10 mg by mouth daily. ALLERGIES: THE PATIENT IS ALLERGIC TO HEPARIN AND METFORMIN. REVIEW OF SYSTEM: CONSTITUTIONAL: There is no fever, no chills, no diaphoresis. HEENT: There is no headache or sore throat. CARDIOVASCULAR SYSTEM: Chest pain is present. No orthopnea. RESPIRATORY SYSTEM: Shortness of breath is present. No cough. GASTROINTESTINAL SYSTEM: There is nausea with no vomiting, no abdominal pain, diarrhea or constipation. NEUROLOGICAL SYSTEM: There is no numbness, no dizziness, no altered mental status. MUSCULOSKELETAL SYSTEM: There is no joint pain or swelling. DERMATOLOGICAL SYSTEM: There is no skin rash or itching. GENITOURINARY: There is dysuria, hematuria, or flank pain. Rest of system review is normal. PHYSICAL EXAMINATION: GENERAL: At the time of exam, the patient was found to be alert, oriented x 3, and not in acute distress. VITAL SIGNS: Shows temperature at the time of initial evaluation 98.3, pulse rate of 95, respirations 18, blood pressure 158/107, O2 sat of 96% on room air. HEENT: Pupils to be equal, round, reactive to light and accommodation. Extraocular muscles are intact. NECK: Supple with no JVD or carotid bruit. CARDIOVASCULAR SYSTEM: Showed normal first and second heart sounds with no gallops or murmurs. RESPIRATORY SYSTEM: Show good air entry on both sides of the lungs with no abnormal breath sounds. GASTROINTESTINAL SYSTEM: Show abdomen to be full, soft, nontender with no organomegaly or rigidity. NEUROLOGIC: Shows no focal deficit. MUSCULOSKELETAL SYSTEM: Show no joint swelling or tenderness. DERMATOLOGICAL SYSTEM: Showing no skin rash. GENITOURINARY SYSTEM: Showing no costovertebral angle tenderness. PERTINENT LABORATORY DATA AND IMAGING STUDIES: The patient had CBC done that shows normal white count, elevated hemoglobin of 16.3, normal hematocrit with normal MCV. The patient's D-dimer is normal. Chemistry shows low potassium of 3.5, low sodium of 135, and low chloride of 85.7. The patient's glucose level is high with a value of 487. The CO2 level is normal. The patient's initial troponin level is normal. DIAGNOSES: 1. Chest pain. 2. Hypokalemia. 3. Diabetes with hypoglycemia. PLAN: The patient will be admitted to telemetry and we will have cardiac enzymes involving troponin, total CK, and CK-MB checked q.6 hours x 2 more levels. The patient will remain n.p.o. after midnight of 08/23/2017 and will have Cardiology consult with Dr. Andrea Calero because of chest pain with history of hypertrophic cardiomyopathy. The patient will be on Accu-Chek q.4 hours with sliding scale using low dose regular heparin coverage. The patient will be on Tylenol 650 mg by mouth every 4 hours as needed for fever and headache and will be on Aspirin 81 mg by mouth daily. The patient will also be on IV morphine 2 mg every 3 hours as needed for pain and IV Zofran 4 mg every 8 hours for nausea and vomiting. The patient will fairly be on oxygen by nasal cannula at 2 liters per minute. JOB# [id number] OCN/NTS
[2017-08-24] MEDS: BABY ASPIRIN PO SCH (10:35)
[2017-08-24] MEDS: ELIQUIS PO SCH ×2 (11:06→21:31)
--- NOTE | 2017-08-24 11:32 | Consultation ---
History of Present Illness Consult date: 08/24/17 Requesting physician: EVANGELINA CUELLO Consult reason: chest pain History of present illness: The pt. is a 51-year-old male with a past medical history significant for TN x 2 (01/2002 and 05/2014) with no intervention per pt report, CMP with AICD in situ, heart failure, unprovoked PE x 2 (09/2015 and 12/2015), HTN, DM, obesity. He reports that his PCP and fur liner are at the [place]. He presents to the emergency department with complaint of midsternal chest pain that began 2 days ago. It is a intermittent squeezing and tightness sensation to the mid chest. It is associated with some shortness of breath and palpitations. He denies any nausea, vomiting, fever. Troponin level is mildly elevated, 0.026, 0.015, 0.031. Lexiscan thallium stress test done 01/03/17 was negative for ischemia, EF 42%. Past History Past Medical History: acute TN, diabetes, GERD, heart failure, hypertension, pulmonary embolism Past Surgical History: hernia repair, Other (AICD placement) Social history: . denies: smoking, alcohol abuse, prescription drug abuse Family history: CAD, diabetes, hypertension Medications and Allergies Allergies Allergy/AdvReac Type Severity Reaction Status Date / Time heparin Allergy Mild Hives Verified 09/08/16 16:35 metformin Allergy Mild Hives Verified 09/08/16 16:35 Home Medications Medication Instructions Recorded Confirmed Last Taken Type Adult Low Dose Aspirin EC 81 mg PO DAILY 05/05/16 08/23/17 05/28/17 History ALBUTEROL Inhaler [ProAir HFA 2 puff IH QID PRN 01/01/17 08/23/17 Unknown History Inhaler] Allopurinol [Zyloprim] 300 mg PO DAILY 01/01/17 08/23/17 01/01/17 History AtorvaSTATin [Lipitor] 80 mg PO QHS #30 tablet 01/03/17 08/23/17 06/03/17 Rx ISOSORBIDE MONOnitrate [Imdur ER] 60 mg PO DAILY #30 tablet 01/03/17 08/23/17 Unknown Rx Metoprolol [Lopressor TAB] 100 mg PO BID #30 tablet 01/18/17 08/23/17 Unknown Rx glyBURIDE [Diabeta] 5 mg PO QDDIAB #1 tablet 01/18/17 08/23/17 Unknown Rx traMADol [Ultram 50 MG tab] 50 mg PO Q6HR PRN #14 tablet 01/18/17 08/23/17 Unknown Rx Chlorthalidone [Thalitone] 25 mg PO QDAY 06/04/17 08/23/17 06/04/17 History amLODIPine [Norvasc] 10 mg PO DAILY 06/04/17 08/23/17 06/04/17 History Rivaroxaban [Xarelto] 20 mg PO DAILY 08/23/17 08/23/17 Unknown History cloNIDine [Catapres] 0.1 mg PO DAILY 08/23/17 08/23/17 Unknown History Active Meds: Active Medications Acetaminophen (Tylenol) 650 mg PO Q4H PRN PRN Reason: For Pain/Fever/Headache Apixaban (Eliquis) 5 mg PO Q12HR REPLACED BY [facility]; Protocol Last Admin: 08/24/17 11:06 Dose: 5 mg Aspirin (Baby Aspirin) 81 mg PO QDAY REPLACED BY [facility] Last Admin: 08/24/17 10:35 Dose: 81 mg Dextrose (D50w (25gm) Syringe) 50 ml IV PRN PRN PRN Reason: Hypoglycemia Insulin Human Regular (Humulin R) 0 units SUB-Q Q4HR REPLACED BY [facility]; Protocol Last Admin: 08/24/17 10:40 Dose: 3 units Morphine Sulfate (Morphine) 2 mg IV Q3H PRN PRN Reason: Pain, Moderate (4-6) Last Admin: 08/24/17 06:39 Dose: 2 mg Ondansetron HCl (Zofran) 4 mg IV Q8H PRN PRN Reason: Nausea And Vomiting Review of Systems Constitutional: no fever, no chills Ears, nose, mouth and throat: no nasal congestion, no nasal discharge, no sinus pressure Cardiovascular: chest pain, palpitations, shortness of breath Respiratory: shortness of breath, no cough, no congestion, no wheezing Genitourinary Male: no dysuria, no hematuria Musculoskeletal: no neck stiffness, no neck pain, no myalgias Integumentary: no rash, no pruritis Neurological: no parathesias, no numbness, no tingling, no headaches Endocrine: no cold intolerance, no heat intolerance Hematologic/Lymphatic: no easy bruising, no easy bleeding Allergic/Immunologic: no urticaria, no wheezing Physical Examination Vital Signs Temp Pulse Resp BP Pulse Ox 98.6 F 95 H 18 158/107 96 08/23/17 12:38 08/23/17 12:38 08/23/17 12:38 08/23/17 12:38 08/23/17 12:38 General appearance: no acute distress HEENT: Positive: PERRL, Normocephaly, Mucus Membranes Moist Neck: Positive: neck supple, trachea midline Cardiac: Positive: Reg Rate and Rhythm, S1/S2 Lungs: Positive: clear to auscultation Neuro: Positive: Grossly Intact Abdomen: Positive: Soft, Active Bowel Sounds. Negative: Tender Skin: Positive: Clear. Negative: Rash Extremities: Present: normal. Absent: edema Results 08/23/17 12:52 08/23/17 12:52 Cardiac Enzymes 08/24/17 08/24/17 Range/Units 01:05 08:43 CK-MB (CK-2) 3.0 3.0 (0.0-4.0) ng/mL Lipids 08/24/17 Range/Units 01:05 Triglycerides 1652 H (2-149) mg/dL Cholesterol 601 H (50-199) mg/dL HDL Cholesterol 39 L (40-59) mg/dL Cholesterol/HDL Ratio 15.41 % CBC 08/23/17 Range/Units 12:52 WBC 7.0 (4.5-11.0) K/mm3 RBC 5.13 H (3.65-5.03) M/mm3 Hgb 16.3 H (11.8-15.2) gm/dl Hct 45.5 (35.5-45.6) % Plt Count 267 (140-440) K/mm3 Lymph # 2.0 (1.2-5.4) K/mm3 [place] # 0.7 (0.0-0.8) K/mm3 Eos # 0.1 (0.0-0.4) K/mm3 Baso # 0.1 (0.0-0.1) K/mm3 Comprehensive Metabolic Panel 08/23/17 Range/Units 12:52 Sodium 135 L (137-145) mmol/L Potassium 3.5 L (3.6-5.0) mmol/L Chloride 85.7 L (98-107) mmol/L Carbon Dioxide 29 (22-30) mmol/L BUN 33 H (9-20) mg/dL Creatinine 1.1 (0.8-1.5) mg/dL Glucose 487 H (75-100) mg/dL Calcium 9.9 (8.4-10.2) mg/dL - Imaging and Cardiology Echo: report reviewed (01/01/17: moderate LVH, EF 45-50%, grade 1 diastolic dysfunction ) EKG: image reviewed EKG interpretations - Telemetry EKG Rhythm: Sinus Rhythm - EKG Sinus rhythms and dysrhythmias: sinus rhythm Chamber hypertrophy or enlargement: left ventricular hypertro Repolarization changes or abnormalities: repolarization abn secondary to ventricular hypertrophy Assessment and Plan Assessment: Chest pain Mildly elevated but flat troponin in the setting of CKD Abnormal EKG - 2/2 LVH S/p TN x 2 - no intervention required per pt report ? H/o heart failure/cardiomyopathy, EF 45-50% per echo 12/2016 AICD in situ H/o PE (anticoaguated with Eliquis) CKD DM Obesity Plan: Cath report from [facility] in [place], [place] done 04/2015 reviewed. Patent coronary arteries at that time. Given negative stress test in 12/2016, minimally elevated but flat troponins in the setting of CKD and no acute EKG changes, recommend continuing aggressive medical management and risk factor modification. The patient has been seen in conjunction with Dr. Lo who agrees with the assessment and plan of care.
--- NOTE | 2017-08-24 11:52 | Progress Note ---
Hospitalist Physical - Constitutional Vitals: Temp Pulse Resp BP Pulse Ox 98.2 F 92 H 18 134/92 92 08/23/17 19:15 08/24/17 07:00 08/24/17 07:00 08/24/17 07:00 08/24/17 03:00 Results - Labs CBC & Chem 7: 08/23/17 12:52 08/23/17 12:52 Labs: Laboratory Last Values WBC 7.0 K/mm3 (4.5-11.0) 08/23/17 12:52 RBC 5.13 M/mm3 (3.65-5.03) H 08/23/17 12:52 Hgb 16.3 gm/dl (11.8-15.2) H 08/23/17 12:52 Hct 45.5 % (35.5-45.6) 08/23/17 12:52 MCV 89 fl (84-94) 08/23/17 12:52 MCH 32 pg (28-32) 08/23/17 12:52 MCHC 36 % (32-34) H 08/23/17 12:52 RDW 13.4 % (13.2-15.2) 08/23/17 12:52 Plt Count 267 K/mm3 (140-440) 08/23/17 12:52 Lymph % (Auto) 27.9 % (13.4-35.0) 08/23/17 12:52 [place] % (Auto) 9.5 % (0.0-7.3) H 08/23/17 12:52 Eos % (Auto) 0.8 % (0.0-4.3) 08/23/17 12:52 Baso % (Auto) 0.9 % (0.0-1.8) 08/23/17 12:52 Lymph # 2.0 K/mm3 (1.2-5.4) 08/23/17 12:52 [place] # 0.7 K/mm3 (0.0-0.8) 08/23/17 12:52 Eos # 0.1 K/mm3 (0.0-0.4) 08/23/17 12:52 Baso # 0.1 K/mm3 (0.0-0.1) 08/23/17 12:52 Seg Neutrophils % 60.9 % (40.0-70.0) 08/23/17 12:52 Seg Neutrophils # 4.3 K/mm3 (1.8-7.7) 08/23/17 12:52 D-Dimer 225.49 ng/mlDDU (0-234) 08/23/17 17:40 Sodium 135 mmol/L (137-145) L 08/23/17 12:52 Potassium 3.5 mmol/L (3.6-5.0) L 08/23/17 12:52 Chloride 85.7 mmol/L (98-107) L 08/23/17 12:52 Carbon Dioxide 29 mmol/L (22-30) 08/23/17 12:52 Anion Gap 24 mmol/L 08/23/17 12:52 BUN 33 mg/dL (9-20) H 08/23/17 12:52 Creatinine 1.1 mg/dL (0.8-1.5) 08/23/17 12:52 Estimated GFR > 60 ml/min 08/23/17 12:52 BUN/Creatinine Ratio 30 % 08/23/17 12:52 Glucose 487 mg/dL (75-100) H 08/23/17 12:52 POC Glucose 252 (70-105) H 08/24/17 10:44 Calcium 9.9 mg/dL (8.4-10.2) 08/23/17 12:52 Total Creatine Kinase 90 units/L (55-170) 08/24/17 08:43 CK-MB (CK-2) 3.0 ng/mL (0.0-4.0) 08/24/17 08:43 CK-MB (CK-2) Rel Index 3.3 (0-4) 08/24/17 08:43 Troponin T 0.027 ng/mL (0.00-0.029) 08/24/17 08:43 NT-Pro-B Natriuret Pep 135.8 pg/mL (0-450) 08/23/17 17:40 Triglycerides 1652 mg/dL (2-149) H 08/24/17 01:05 Cholesterol 601 mg/dL (50-199) H 08/24/17 01:05 LDL Cholesterol Direct TNR 08/24/17 01:05 HDL Cholesterol 39 mg/dL (40-59) L 08/24/17 01:05 Cholesterol/HDL Ratio 15.41 % 08/24/17 01:05
--- NOTE | 2017-08-24 15:50 | Event Note ---
Date: 08/24/17 Patient presents with chest pain and shortness of breath. I have seen and examined him. Resume home meds. cardiology following.
[2017-08-24] MEDS: CATAPRES PO SCH ×2 (20:19→21:09)
[2017-08-24] MEDS: LOPRESSOR PO SCH (21:11)
[2017-08-24] MEDS: NORVASC PO SCH (21:31)
[2017-08-24] MEDS: THALITONE PO SCH (21:32)
[2017-08-24] MEDS ORDERED: HumaLOG SUB-Q ONE (21:49)
[2017-08-24] MEDS ORDERED: LANTUS SUB-Q SCH (22:00)
[2017-08-25] MEDS: HumuLIN R SUB-Q SCH ×2 (08:03→12:35)
--- NOTE | 2017-08-25 09:48 | Discharge Summary ---
Providers - Providers Date of Admission: 08/23/17 18:29 Date of discharge: 08/25/17 Attending physician: TONIO SAEZ 08/24/17 06:01 Consult to Physician [CONS] Routine Comment: ROSSY OSORIORE OF PT Consulting Provider: EDELMIRA GOOD Physician Instructions: Reason For Exam: CHEST PAIN WITH HIST. OF HYPERTROPHIC CARDIOMYO. Primary care physician: ENERGY CONSERVATION TECHNICIAN Hospitalization Condition: Fair Disposition: DC-01 TO HOME OR SELFCARE Core Measure Documentation - Palliative Care Palliative Care/ Comfort Measures: Not Applicable - Core Measures Any of the following diagnoses?: none Exam - Constitutional Vitals: Temp Pulse Resp BP Pulse Ox 98.3 F 98 H 18 135/86 96 08/25/17 07:56 08/25/17 07:56 08/25/17 07:56 08/25/17 07:56 08/25/17 09:42 Plan Diet: low fat, low cholesterol, low salt Additional Instructions: 1.Follow up with PCP at [facility] in 3-5 days. 2.Follow up with Social Sciences Department Chair at [facility] in 3-5 days. 3.No strenous activity unless cleared by Physician. Follow up with: PRIMARY CAREMD [Primary Care Provider] - 3-5 Days
[2017-08-25] MEDS ORDERED: IMDUR PO SCH (10:00)
[2017-08-25] MEDS: BABY ASPIRIN PO SCH (11:24)
[2017-08-25] MEDS: NORVASC PO SCH (11:25)
[2017-08-25] MEDS: LOPRESSOR PO SCH (11:25)
[2017-08-25] MEDS: ELIQUIS PO SCH (11:25)
[2017-08-25] MEDS: THALITONE PO SCH (11:26)
--- NOTE | 2017-08-25 11:48 | Progress Note ---
Assessment and Plan Assessment/Plan: Chest pain Atypical/musculoskeletal S/p CT x 2 - no intervention required per pt report Continue medical management and risk factor modification H/O heart failure/nonischemic cardiomyopathy EF 45-50% per echo 12/2016 Continue heart failure medication regimen Hypertension AICD in situ H/o PE (anticoaguated with Eliquis) CKD DM Obesity Cath report from [facility] in [place], [place] done 04/2015 : Patent coronary arteries at that time. 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 Objective Vital Signs Temp Pulse Resp BP BP Pulse Ox 08/25/17 11:25 142/101 08/25/17 09:42 96 08/25/17 07:56 98.3 F 98 H 18 135/86 96 08/25/17 04:26 97.9 F 87 97 H 143/93 08/25/17 04:25 93 H 143/93 96 08/24/17 23:46 98.3 F 98 H 20 133/100 133/100 96 08/24/17 21:31 141/98 08/24/17 21:18 141/98 96 08/24/17 20:19 167/105 08/24/17 19:26 122 H 08/24/17 19:12 97.8 F 108 H 20 167/105 96 08/24/17 15:42 98.1 F 104 H 18 142/102 96 08/24/17 15:23 94 08/24/17 14:45 20 08/24/17 13:00 104 H 99 08/24/17 12:00 11 L 152/88 97 - Physical Examination HEENT: Positive: PERRL, Normocephaly, Mucus Membranes Moist Neck: Positive: neck supple, trachea midline Cardiac: Positive: Reg Rate and Rhythm Lungs: Positive: Normal Exam, clear to auscultation Neuro: Positive: Grossly Intact Abdomen: Positive: Soft, Active Bowel Sounds. Negative: Tender Skin: Positive: Clear. Negative: Rash Extremities: Present: normal. Absent: edema - Imaging and Cardiology EKG: image reviewed Echo: report reviewed (10/16/17: moderate LVH, EF 45-50%, grade 1 diastolic dysfunction ) - EKG Sinus rhythms and dysrhythmias: sinus rhythm Chamber hypertrophy or enlargement: left ventricular hypertro Repolarization changes or abnormalities: repolarization abn secondary to ventricular hypertrophy
[2017-08-25 12:51] VITALS: BP 138/100
== END 2017-08-25 15:18 | disposition home or self-care (01) | DRG 313 ==
LOC: ED 12:26 → 4A 18:29
PROVIDERS: ADMIT Internal Medicine; ATTEND Internal Medicine
DX: R07.89 Other chest pain (principal); I42.2 Other hypertrophic cardiomyopathy; I13.0 Hypertensive heart and chronic kidney disease with heart failure and stage 1 through stage 4 chronic kidney disease, or unspecified chronic kidney disease; M10.9 Gout, unspecified; K21.9 Gastro-esophageal reflux disease without esophagitis; I25.10 Atherosclerotic heart disease of native coronary artery without angina pectoris; E87.6 Hypokalemia; N18.9 Chronic kidney disease, unspecified; E11.22 Type 2 diabetes mellitus with diabetic chronic kidney disease; E11.649 Type 2 diabetes mellitus with hypoglycemia without coma; E66.9 Obesity, unspecified; Z82.49 Family history of ischemic heart disease and other diseases of the circulatory system; I25.2 Old myocardial infarction; Z86.73 Personal history of transient ischemic attack (TIA), and cerebral infarction without residual deficits; Z95.810 Presence of automatic (implantable) cardiac defibrillator; Z79.899 Other long term (current) drug therapy; Z86.711 Personal history of pulmonary embolism; Z88.8 Allergy status to other drugs, medicaments and biological substances; Z88.5 Allergy status to narcotic agent; Z79.01 Long term (current) use of anticoagulants; Z83.3 Family history of diabetes mellitus; Z68.35 Body mass index [BMI] 35.0-35.9, adult
CPT/HCPCS: 36415; 71045; 80048; 80061; 82550; 82553; 82962; 83880; 84484; 85025; 85379; 93005; 93010; A9270-GY; J1815; J2270

== ENCOUNTER 2018-04-05 12:24 | Emergency (ER) | payer OTHER ==
--- NOTE | 2018-04-05 13:12 | Emergency Department Report ---
ED Extremity Problem HPI - General Chief complaint: Extremity Injury, Lower Stated complaint: (L) ANKLE INJURY Time Seen by Provider: 04/05/18 13:03 Source: patient Mode of arrival: Ambulatory Limitations: No Limitations, Physical Limitation - History of Present Illness Initial comments: Patient is a 52-year-old [place] male who states that he has been having 1 week of pain in the left ankle. Patient states that he injured his ankle in the 90s but was never seen by orthopedic physician doesn't have severe injury really was. Patient states occasionally he will have increased pain in this joint. Patient states it hurts worse when he is walking and pushing off. Patient initially thought he was having a gout flareup however there's been no swelling that he is taking colchicine with no relief. Patient states the pain is a 6 out of 10 in severity and aching and throbbing. - Related Data Home Medications Medication Instructions Recorded Confirmed Last Taken Adult Low Dose Aspirin EC 81 mg PO DAILY 05/05/16 08/23/17 05/28/17 ALBUTEROL Inhaler (OR & NICU) 2 puff IH QID PRN 01/01/17 08/23/17 Unknown [ProAir HFA Inhaler] Allopurinol [Zyloprim] 300 mg PO DAILY 01/01/17 08/23/17 01/01/17 Chlorthalidone [Thalitone] 25 mg PO QDAY 06/04/17 08/23/17 06/04/17 amLODIPine [Norvasc] 10 mg PO DAILY 06/04/17 08/23/17 06/04/17 Rivaroxaban [Xarelto] 20 mg PO DAILY 08/23/17 08/23/17 Unknown cloNIDine [Catapres] 0.1 mg PO DAILY 08/23/17 08/23/17 Unknown Previous Rx's Medication Instructions Recorded Last Taken Type AtorvaSTATin [Lipitor] 80 mg PO QHS #30 tablet 01/03/17 06/03/17 Rx ISOSORBIDE MONOnitrate [Imdur ER] 60 mg PO DAILY #30 tablet 01/03/17 Unknown Rx Metoprolol [Lopressor TAB] 100 mg PO BID #30 tablet 01/18/17 Unknown Rx glyBURIDE [Diabeta] 5 mg PO QDDIAB #1 tablet 01/18/17 Unknown Rx traMADol [Ultram 50 MG tab] 50 mg PO Q6HR PRN #14 tablet 01/18/17 Unknown Rx Amoxicillin/Potassium Clav 1 each PO BID 7 Days #14 tablet 02/15/18 Unknown Rx [Augmentin 875-125 Tablet] Ibuprofen [Motrin] 600 mg PO Q8H PRN #20 tablet 04/05/18 Unknown Rx traMADol [Ultram] 50 mg PO Q6HR PRN #10 tablet 04/05/18 Unknown Rx Allergies Allergy/AdvReac Type Severity Reaction Status Date / Time heparin Allergy Mild Hives Verified 04/05/18 12:50 metformin Allergy Mild Hives Verified 04/05/18 12:50 ED Review of Systems ROS: Stated complaint: (L) ANKLE INJURY Other details as noted in HPI Comment: All other systems reviewed and negative ED Past Medical Hx - Past Medical History Hx Hypertension: Yes Hx Heart Attack/AMI: Yes Hx Congestive Heart Failure: Yes Hx Diabetes: Yes Hx Pulmonary Embolism: Yes Hx GERD: Yes Hx Sickle Cell Disease: No Hx Arthritis: Yes (GOUT) Hx Asthma: No Hx COPD: No Hx HIV: No Additional medical history: HYPERTROPHIC CARDIOMYOPATHY. TIA - Surgical History Hx Coronary Stent: Yes Hx Open Heart Surgery: Yes (DEFIBRILLATOR) Hx Internal Defibrillator: Yes Additional Surgical History: LEFT ELBOW. DOUBLE HERNIA REPAIR. LEFT AND RIGHT MENISCUS - Social History Smoking Status: Never Smoker Substance Use Type: None - Medications Home Medications: Home Medications Medication Instructions Recorded Confirmed Last Taken Type Adult Low Dose Aspirin EC 81 mg PO DAILY 05/05/16 08/23/17 05/28/17 History ALBUTEROL Inhaler (OR & NICU) 2 puff IH QID PRN 01/01/17 08/23/17 Unknown History [ProAir HFA Inhaler] Allopurinol [Zyloprim] 300 mg PO DAILY 01/01/17 08/23/17 01/01/17 History AtorvaSTATin [Lipitor] 80 mg PO QHS #30 tablet 01/03/17 08/23/17 06/03/17 Rx ISOSORBIDE MONOnitrate [Imdur ER] 60 mg PO DAILY #30 tablet 01/03/17 08/23/17 Unknown Rx Metoprolol [Lopressor TAB] 100 mg PO BID #30 tablet 01/18/17 08/23/17 Unknown Rx glyBURIDE [Diabeta] 5 mg PO QDDIAB #1 tablet 01/18/17 08/23/17 Unknown Rx traMADol [Ultram 50 MG tab] 50 mg PO Q6HR PRN #14 tablet 01/18/17 08/23/17 Unknown Rx Chlorthalidone [Thalitone] 25 mg PO QDAY 06/04/17 08/23/17 06/04/17 History amLODIPine [Norvasc] 10 mg PO DAILY 06/04/17 08/23/17 06/04/17 History Rivaroxaban [Xarelto] 20 mg PO DAILY 08/23/17 08/23/17 Unknown History cloNIDine [Catapres] 0.1 mg PO DAILY 08/23/17 08/23/17 Unknown History Amoxicillin/Potassium Clav 1 each PO BID 7 Days #14 tablet 02/15/18 Unknown Rx [Augmentin 875-125 Tablet] Ibuprofen [Motrin] 600 mg PO Q8H PRN #20 tablet 04/05/18 Unknown Rx traMADol [Ultram] 50 mg PO Q6HR PRN #10 tablet 04/05/18 Unknown Rx ED Physical Exam - General Limitations: No Limitations, Physical Limitation General appearance: alert, in no apparent distress - Head Head exam: Present: atraumatic, normocephalic - Eye Eye exam: Present: normal appearance - ENT ENT exam: Present: mucous membranes moist - Neck Neck exam: Present: normal inspection - Respiratory Respiratory exam: Present: normal lung sounds bilaterally. Absent: respiratory distress - Cardiovascular Cardiovascular Exam: Present: regular rate, normal rhythm. Absent: systolic murmur, diastolic murmur, rubs, gallop - GI/Abdominal GI/Abdominal exam: Present: soft, normal bowel sounds - Rectal Rectal exam: Present: deferred - Extremities Exam Extremities exam: Present: normal inspection, full ROM, tenderness ([place] ankle. There is no erythema or swelling to this joint. Patient's tenderness is generalized.), normal capillary refill. Absent: joint swelling - Back Exam Back exam: Present: normal inspection - Neurological Exam Neurological exam: Present: alert, oriented X3 - Psychiatric Psychiatric exam: Present: normal affect, normal mood - Skin Skin exam: Present: warm, dry, intact, normal color. Absent: rash ED Course Vital Signs 04/05/18 12:51 Temperature 97.8 F Pulse Rate 92 H Respiratory 18 Rate Blood Pressure 130/94 O2 Sat by Pulse 100 Oximetry ED Medical Decision Making - Medical Decision Making Patient to be referred to orthopedics. Patient given informational rice therapy. Critical care attestation.: If time is entered above; I have spent that time in minutes in the direct care of this critically ill patient, excluding procedure time. ED Disposition Clinical Impression: Ankle arthritis Disposition: TO HOME OR SELFCARE Is pt being admited?: No Does the pt Need Aspirin: No Condition: Stable Referrals: KEEGAN POLLOCK MD [Staff Physician] - 3-5 Days Time of Disposition: 13:11
== END 2018-04-05 13:19 | disposition home or self-care (01) ==
LOC: ED 12:24
CPT/HCPCS: 99282

== ENCOUNTER 2018-05-19 04:17 | Inpatient (IN) | payer OTHER, MEDICARE ==
[2018-05-19 04:53] LABS: Basophils # (Auto) 0.1 K/mm3 (0.0-0.1); Basophils % (Auto) 0.9 % (0.0-1.8); Eosinophils % (Auto) 0.3 % (0.0-4.3); Hematocrit 35.5 % (35.5-45.6); Hemoglobin 11.9 gm/dl (11.8-15.2); Lymphocytes # (Auto) 1.1 K/mm3 (1.2-5.4); Lymphocytes % (Auto) 14.8 % (13.4-35.0); Mean Corpuscular HGB Conc 33 % (32-34); Mean Corpuscular Volume 92 fl (84-94); Monocytes # (Auto) 0.5 K/mm3 (0.0-0.8); Monocytes % (Auto) 7.4 % (0.0-7.3); Platelet Count 268 K/mm3 (140-440); Red Blood Count 3.84 M/mm3 (3.65-5.03)
[2018-05-19 05:04] LABS: Alanine Aminotransferase 29 units/L (7-56); Albumin 4.1 g/dL (3.9-5); BUN/Creatinine Ratio 11; Blood Urea Nitrogen 19 mg/dL (9-20); Calcium 8.9 mg/dL (8.4-10.2); Hemolysis Index 26
[2018-05-19 05:16] LABS: Chol/HDL Ratio 16.42 %; HDL Cholesterol 26 mg/dL (40-59); LDL Cholesterol,Direct TNR mg/dL (50-130)
--- NOTE | 2018-05-19 05:16 | XRay Report ---
PROCEDURE: XR CHEST 1V AP TECHNIQUE: Chest radiograph single view. HISTORY: chest pain COMPARISONS: None . FINDINGS: Heart: Normal. Mediastinum/Vessels: Normal. Lungs/Pleural space: Normal. Bony thorax: No acute osseous abnormality. Life support devices: There is a pacemaker overlying the left chest wall with the lead in the right v entricle.. IMPRESSION: No acute cardiopulmonary abnormality. This document is electronically signed by Alberto Kelly MD., May 19 2018 05:14:12 AM ET
--- NOTE | 2018-05-19 06:35 | Emergency Department Report ---
HPI - General Chief Complaint: Arrhythmia/Palpitations Time Seen by Provider: 05/19/18 06:17 - HPI HPI: Room 22 The patient is a 52-year-old male presenting with a chief complaint of chest pain and AICD firing. The patient states his chest has been hurting for the past week. Patient described his pain as a sharp and tight sensation. Patient states she has had shortness of breath as well as nausea/vomiting with this pain. Patient denies diaphoresis. The patient states this morning at 02:30 while walking to the bathroom he began to feel tired and then his AICD fire. They AICD fired a total of 10 times, each less than 2 minutes apart. Patient complains of pain in his left upper extremity from the soreness from his AICD firing. Patient currently gives his chest pain a score of 10/10 Location: Chest Duration: One week Quality: Pain Severity: 10/10 Modifying factors: [see above] Context: [see above] Mode of transportation: [not driving] ED Past Medical Hx - Past Medical History Previous Medical History?: Yes Hx Hypertension: Yes Hx Heart Attack/AMI: Yes Hx Congestive Heart Failure: Yes Hx Diabetes: Yes Hx Pulmonary Embolism: Yes Hx GERD: Yes Hx Arthritis: Yes (GOUT) Hx Asthma: No Hx COPD: No Hx HIV: No Additional medical history: HYPERTROPHIC CARDIOMYOPATHY. TIA - Surgical History Hx Open Heart Surgery: Yes (DEFIBRILLATOR) Hx Internal Defibrillator: Yes Additional Surgical History: LEFT ELBOW. DOUBLE HERNIA REPAIR. LEFT AND RIGHT MENISCUS - Family History Family history: no significant - Social History Smoking Status: Never Smoker Substance Use Type: None (denies illicit drug use), Alcohol (occasional) - Medications Home Medications: Home Medications Medication Instructions Recorded Confirmed Last Taken Type Adult Low Dose Aspirin EC 81 mg PO DAILY 05/05/16 08/23/17 05/28/17 History ALBUTEROL Inhaler (OR & NICU) 2 puff IH QID PRN 01/01/17 08/23/17 Unknown History [ProAir HFA Inhaler] Allopurinol [Zyloprim] 300 mg PO DAILY 01/01/17 08/23/17 01/01/17 History AtorvaSTATin [Lipitor] 80 mg PO QHS #30 tablet 01/03/17 08/23/17 06/03/17 Rx ISOSORBIDE MONOnitrate [Imdur ER] 60 mg PO DAILY #30 tablet 01/03/17 08/23/17 Unknown Rx Metoprolol [Lopressor TAB] 100 mg PO BID #30 tablet 01/18/17 08/23/17 Unknown Rx glyBURIDE [Diabeta] 5 mg PO QDDIAB #1 tablet 01/18/17 08/23/17 Unknown Rx traMADol [Ultram 50 MG tab] 50 mg PO Q6HR PRN #14 tablet 01/18/17 08/23/17 Unknown Rx Chlorthalidone [Thalitone] 25 mg PO QDAY 06/04/17 08/23/17 06/04/17 History amLODIPine [Norvasc] 10 mg PO DAILY 06/04/17 08/23/17 06/04/17 History Rivaroxaban [Xarelto] 20 mg PO DAILY 08/23/17 08/23/17 Unknown History cloNIDine [Catapres] 0.1 mg PO DAILY 08/23/17 08/23/17 Unknown History Amoxicillin/Potassium Clav 1 each PO BID 7 Days #14 tablet 02/15/18 Unknown Rx [Augmentin 875-125 Tablet] Ibuprofen [Motrin] 600 mg PO Q8H PRN #20 tablet 04/05/18 Unknown Rx traMADol [Ultram] 50 mg PO Q6HR PRN #10 tablet 04/05/18 Unknown Rx ED Review of Systems ROS: Stated complaint: DEFIBRILLATOR COMPLICATIONS Other details as noted in HPI Constitutional: denies: diaphoresis Eyes: denies: eye pain ENT: denies: throat pain Respiratory: shortness of breath Cardiovascular: chest pain Endocrine: no symptoms reported Gastrointestinal: nausea, vomiting Genitourinary: denies: dysuria Musculoskeletal: myalgia Neurological: denies: headache Physical Exam - Physical Exam Vital Signs: Vital Signs 05/19/18 05/19/18 04:25 04:53 Temperature 98.4 F Pulse Rate 121 H Respiratory 14 14 Rate Blood Pressure 116/90 O2 Sat by Pulse 98 Oximetry Physical Exam: GENERAL: The patient is well-developed well-nourished male lying on stretcher not appearing to be in acute distress. [] HEENT: Normocephalic. Atraumatic. Extraocular motions are intact. Patient has moist mucous membranes. NECK: Supple. Trachea midline CHEST/LUNGS: Clear to auscultation. There is no respiratory distress noted. HEART/CARDIOVASCULAR: Regular. There is no tachycardia. There is no gallop rub or murmur. ABDOMEN: Abdomen is soft, nontender. Patient has normal bowel sounds. There is no abdominal distention. SKIN: There is no rash. There is no edema. There is no diaphoresis. NEURO: The patient is awake, alert, and oriented. The patient is cooperative. The patient has normal speech. 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 ED Course Vital Signs 05/19/18 05/19/18 04:25 04:53 Temperature 98.4 F Pulse Rate 121 H Respiratory 14 14 Rate Blood Pressure 116/90 O2 Sat by Pulse 98 Oximetry - Consultations Consultation #1: 05/19/18 06:33 [employer] representative paged 05/19/18 06:43 Spoke with Laminating Machine Offbearer Briseida-remote interrogation shows the device fired 14 time for an underlying rhythm of V. tach. Can email report. Briseida can be contacted at [phone] ED Medical Decision Making - Lab Data Result diagrams: 05/19/18 04:39 05/19/18 04:39 Laboratory Tests 05/19/18 05/19/18 05/19/18 04:39 04:39 04:39 WBC 7.2 RBC 3.84 Hgb 11.9 Hct 35.5 MCV 92 MCH 31 MCHC 33 RDW 15.0 Plt Count 268 Lymph % (Auto) 14.8 [place] % (Auto) 7.4 H Eos % (Auto) 0.3 Baso % (Auto) 0.9 Lymph # 1.1 L [place] # 0.5 Eos # 0.0 Baso # 0.1 Seg Neutrophils % 76.6 H Seg Neutrophils # 5.5 Sodium 133 L Potassium 4.1 Chloride 95.3 L Carbon Dioxide 18 L Anion Gap 24 BUN 19 Creatinine 1.7 H Estimated GFR 52 BUN/Creatinine Ratio 11 Glucose 414 H Calcium 8.9 Total Bilirubin 0.20 AST 27 ALT 29 Alkaline Phosphatase 77 Total Creatine Kinase 419 H CK-MB (CK-2) 6.0 H CK-MB (CK-2) Rel Index 1.4 Troponin T 0.039 H Total Protein 7.2 Albumin 4.1 Albumin/Globulin Ratio 1.3 Triglycerides 688 H Cholesterol 427 H LDL Cholesterol Direct TNR HDL Cholesterol 26 L Cholesterol/HDL Ratio 16.42 - EKG Data -: EKG Interpreted by [place] EKG shows normal: sinus rhythm Rate: tachycardia (118 bpm) - EKG Data When compared to previous EKG there are: previous EKG unavailable Interpretation: nonspecific ST-T wave wilmer (T-wave inversions in leads 1, 2, 3, aVL, aVF, V3, V4, V5, V6) - Radiology Data Radiology results: report reviewed (chest x-ray), image reviewed (chest x-ray) interpreted by me: Chest x-ray-no focal infiltrates, no pneumothorax Referring Physician: TONIO KENNY Patient Name: VINNIE STREET Date of : 1965 Sex: Male Report Date: 2018-05-19 Report Status: [place] [address] XRay Report Signed Patient: VINNIE STREET MR#: [id number] : 1965 Acct:[id number] Age/Sex: 52 / M ADM Date: 05/19/18 Loc: ED Attending Dr: Ordering Physician: TONIO KENNY MD Date of Service: 05/19/18 Procedure(s): XR chest 1V ap Accession Number(s): [id number] cc: TONIO KENNY MD Fluoro Time In Minutes: PROCEDURE: XR CHEST 1V AP TECHNIQUE: Chest radiograph single view. HISTORY: chest pain COMPARISONS: None . FINDINGS: Heart: Normal. Mediastinum/Vessels: Normal. Lungs/Pleural space: Normal. Bony thorax: No acute osseous abnormality. Life support devices: There is a pacemaker overlying the left chest wall with the lead in the right ventricle.. IMPRESSION: No acute cardiopulmonary abnormality. This document is electronically signed by Keegan Kelly MD., May 19 2018 05 :14:12 AM ET Transcribed By: RB Dictated By: KEEGAN KELLY MD Electronically Authenticated By: KEEGAN KELLY MD Signed Date/Time: 05/19/18515 DD/ 9 TD/TT: 05/19/18509 - Differential Diagnosis ACS, dysrhythmia, pericarditis, GERD Critical care attestation.: If time is entered above; I have spent that time in minutes in the direct care of this critically ill patient, excluding procedure time. ED Disposition Clinical Impression: Chest pain, AICD discharge Disposition: DC-09 OP ADMIT IP TO THIS HOSP Is pt being admited?: Yes Does the pt Need Aspirin: Yes Condition: Fair Instructions: Chest Pain (ED) Referrals: PRIMARY CARE,MD [Primary Care Provider] - 3-5 Days Time of Disposition: 07:03 (hospitalist paged)
[2018-05-19] MEDS ORDERED: ASPIRIN PO ONE (06:37)
[2018-05-19] MEDS ORDERED: ZOFRAN IV ONE (06:37)
[2018-05-19] MEDS ORDERED: NITRO-BID 2% TP ONE (06:37)
[2018-05-19] MEDS ORDERED: SUBLIMAZE IV ONE (06:37)
[2018-05-19] MEDS ORDERED: CORDARONE 150 MG in D5W 97 ML IV ONE (06:45)
[2018-05-19] MEDS ORDERED: TYLENOL ONE (06:58)
[2018-05-19] MEDS ORDERED: TYLENOL PO ONE (07:14)
[2018-05-19] MEDS: CORDARONE 900 MG in D5W 482 ML IV SCH ×2 (07:59→22:46)
[2018-05-19] MEDS ORDERED: ZOFRAN IV PRN (09:44)
[2018-05-19] MEDS ORDERED: MORPHINE IV PRN (09:44)
[2018-05-19] MEDS ORDERED: D50W (25GM) Syringe IV PRN (09:44)
[2018-05-19] MEDS ORDERED: SODIUM CHLORIDE FLUSH SYRINGE 10 ML IV PRN (09:44)
--- NOTE | 2018-05-19 10:15 | History and Physical Report ---
History of Present Illness Date of examination: 05/19/18 Date of admission: 05/19/18 07:07 Chief complaint: Chest pain And shortness of breath History of present illness: Patient is a 52-year-old male with a history of hyperlipidemia, diabetes, coronary disease, and gout presents with a four-day history of chest pain described as sharp 10 out of 10 nonradiating associate it was shortness of breath, nausea and vomiting. Patient also noted his defibrillator firing approximately 10 times. Patient presented to the ED found to be in VTACH after device was interrogated. Patient subsequently complains of left-sided soreness after firing of a ICD device. Patient also was found to have malignant hypertension at the time. Patients blood glucose was 400. At present patient feel comfortable rhythm is regular now. Patient placed on amiodarone drip and to be transferred to [facility] unit. Past History Past Medical History: acute [place], arrhythmia, CAD, diabetes, hypertension, hyperlipidemia. denies: liver disease, migraines, PVD, pulmonary embolism, renal failure, seizures, stroke Past Surgical History: Other (AICD device). denies: appendectomy, abd. aortic aneurysm repair, arthroscopy, valve replacement, cholecystectomy Social history: single, full code. denies: lives with family, smoking, alcohol abuse, prescription drug abuse Family history: diabetes, hypertension Medications and Allergies Allergies Allergy/AdvReac Type Severity Reaction Status Date / Time heparin Allergy Mild Hives Verified 04/05/18 12:50 metformin Allergy Mild Hives Verified 04/05/18 12:50 Home Medications Medication Instructions Recorded Confirmed Last Taken Type Adult Low Dose Aspirin EC 81 mg PO DAILY 05/05/16 08/23/17 05/28/17 History ALBUTEROL Inhaler (OR & NICU) 2 puff IH QID PRN 01/01/17 08/23/17 Unknown History [ProAir HFA Inhaler] Allopurinol [Zyloprim] 300 mg PO DAILY 01/01/17 08/23/17 01/01/17 History AtorvaSTATin [Lipitor] 80 mg PO QHS #30 tablet 01/03/17 08/23/17 06/03/17 Rx ISOSORBIDE MONOnitrate [Imdur ER] 60 mg PO DAILY #30 tablet 01/03/17 08/23/17 Unknown Rx Metoprolol [Lopressor TAB] 100 mg PO BID #30 tablet 01/18/17 08/23/17 Unknown Rx glyBURIDE [Diabeta] 5 mg PO QDDIAB #1 tablet 01/18/17 08/23/17 Unknown Rx traMADol [Ultram 50 MG tab] 50 mg PO Q6HR PRN #14 tablet 01/18/17 08/23/17 Unknown Rx Chlorthalidone [Thalitone] 25 mg PO QDAY 06/04/17 08/23/17 06/04/17 History amLODIPine [Norvasc] 10 mg PO DAILY 06/04/17 08/23/17 06/04/17 History Rivaroxaban [Xarelto] 20 mg PO DAILY 08/23/17 08/23/17 Unknown History cloNIDine [Catapres] 0.1 mg PO DAILY 08/23/17 08/23/17 Unknown History Amoxicillin/Potassium Clav 1 each PO BID 7 Days #14 tablet 02/15/18 Unknown Rx [Augmentin 875-125 Tablet] Ibuprofen [Motrin] 600 mg PO Q8H PRN #20 tablet 04/05/18 Unknown Rx traMADol [Ultram] 50 mg PO Q6HR PRN #10 tablet 04/05/18 Unknown Rx Active Meds: Active Medications Acetaminophen (Tylenol) 650 mg PO Q4H PRN PRN Reason: Pain MILD(1-3)/Fever >100.5/RAMÍREZ Allopurinol (Zyloprim) 300 mg PO DAILY BRITT[facility] Amlodipine Besylate (Norvasc) 10 mg PO DAILY [facility] Aspirin (Aspirin) 325 mg PO QDAY BRITTANI Atorvastatin Calcium (Lipitor) 80 mg PO QHS BRITTANI Clonidine HCl (Catapres) 0.1 mg PO DAILY BRITTANI Dextrose (D50w (25gm) Syringe) 50 ml IV PRN PRN PRN Reason: Hypoglycemia Famotidine (Pepcid) 20 mg IV BID BRITTANI Glyburide (Diabeta) 5 mg PO QDDIAB BRITTANI Amiodarone HCl 900 mg/ (Dextrose) 500 mls @ 33.33 mls/hr IV DIRECT BRITTANI; Protocol Last Admin: 05/19/18 07:59 Dose: 1 mg/min, 33.33 mls/hr Documented by: Insulin Human Lispro (Humalog) 0 unit SUB-Q ACHS BRITTANI; Protocol Isosorbide Mononitrate (Imdur) 60 mg PO DAILY BRITTANI Metoprolol Tartrate (Lopressor) 100 mg PO BID [facility] Morphine Sulfate (Morphine) 2 mg IV Q4H PRN PRN Reason: Pain, Moderate (4-6) Ondansetron HCl (Zofran) 4 mg IV Q8H PRN PRN Reason: Nausea And Vomiting Rivaroxaban (Xarelto) 20 mg PO DAILY [facility]; Protocol Stop: 05/22/18 23:59 Sodium Chloride (Sodium Chloride Flush Syringe 10 Ml) 10 ml IV BID [facility] Sodium Chloride (Sodium Chloride Flush Syringe 10 Ml) 10 ml IV PRN PRN PRN Reason: LINE FLUSH Review of Systems Constitutional: weakness, malaise, no weight loss, no weight gain, no fever, no chills, no sweats, no night sweats, no anorexia, no fatigue, no lethargy, no chronic headaches, no poor appetite, no daytime sleepiness, no chronic pain Ears, nose, mouth and throat: no ear discharge, no nasal congestion, no sinus pain, no dental pain, no dysphagia, no hoarseness, no swelling in mouth, no headache, no vertigo Cardiovascular: chest pain, palpitations, rapid/irregular heart beat, lightheadedness, shortness of breath, high blood pressure, decreased exercise tolerance, no orthopnea, no edema, no syncope, no dyspnea on exertion, no paroxysmal nocturnal dyspnea, no claudication, no phlebitis, no leg edema Respiratory: no cough, no excessive sputum, no congestion, no pain, no sleep apnea, no respiratory infections Gastrointestinal: nausea, vomiting, no abdominal pain, no diarrhea, no constipation, no change in bowel habits, no hematemesis, no coffee ground emesis, no melena, no loss of appetite, no indigestion, no dyspepsia/bloating, no lactose intolerance, no other Genitourinary Male: no hematuria, no genital pain, no difficulties fathering child Musculoskeletal: no neck pain, no arm numbness/tingling, no shooting leg pain, no redness of joints, no morning stiffness, no muscle cramps, no loss of height Neurological: headaches, no transient paralysis, no weakness, no numbness, no seizures, no migraines, no tic, no confusion, no sensory deficit, no burning pain Psychiatric: no memory loss, no sleep disturbances, no hypersomnia, no change in libido, no hallucinations, no depression, no confusion, no mood swings Endocrine: no heat intolerance, no polyphagia, no excessive thirst, no flushing, no thyroid mass, no high blood sugars Hematologic/Lymphatic: no easy bruising, no lymphadenopathy, no lymphedema Allergic/Immunologic: no wheezing, no anaphylaxis, no gluten intolerance Exam - Constitutional Vitals: Temp Pulse Resp BP Pulse Ox 98.4 F 68 15 104/59 99 05/19/18 04:25 05/19/18 09:31 05/19/18 09:31 05/19/18 09:31 05/19/18 09:00 General appearance: Present: no acute distress, well-nourished - EENT Eyes: Present: PERRL ENT: hearing intact, clear oral mucosa - Neck Neck: Present: supple, normal ROM - Respiratory Respiratory effort: normal Respiratory: bilateral: CTA - Cardiovascular Heart Sounds: Present: S1 & S2. Absent: rub, click - Extremities Extremities: pulses symmetrical, No edema Peripheral Pulses: within normal limits - Abdominal General gastrointestinal: Present: soft, non-tender, non-distended, normal bowel sounds Male genitourinary: Present: normal - Integumentary Integumentary: Present: clear, warm, dry - Musculoskeletal Musculoskeletal: gait normal, strength equal bilaterally - Psychiatric Psychiatric: appropriate mood/affect, intact judgment & insight - Neurologic Neurologic: CNII-XII intact, moves all extremities Results - Labs CBC & Chem 7: 05/19/18 04:39 05/19/18 04:39 Labs: Laboratory Last Values WBC 7.2 K/mm3 (4.5-11.0) 05/19/18 04:39 RBC 3.84 M/mm3 (3.65-5.03) 05/19/18 04:39 Hgb 11.9 gm/dl (11.8-15.2) 05/19/18 04:39 Hct 35.5 % (35.5-45.6) 05/19/18 04:39 MCV 92 fl (84-94) 05/19/18 04:39 MCH 31 pg (28-32) 05/19/18 04:39 MCHC 33 % (32-34) 05/19/18 04:39 RDW 15.0 % (13.2-15.2) 05/19/18 04:39 Plt Count 268 K/mm3 (140-440) 05/19/18 04:39 Lymph % (Auto) 14.8 % (13.4-35.0) 05/19/18 04:39 [place] % (Auto) 7.4 % (0.0-7.3) H 05/19/18 04:39 Eos % (Auto) 0.3 % (0.0-4.3) 05/19/18 04:39 Baso % (Auto) 0.9 % (0.0-1.8) 05/19/18 04:39 Lymph # 1.1 K/mm3 (1.2-5.4) L 05/19/18 04:39 [place] # 0.5 K/mm3 (0.0-0.8) 05/19/18 04:39 Eos # 0.0 K/mm3 (0.0-0.4) 05/19/18 04:39 Baso # 0.1 K/mm3 (0.0-0.1) 05/19/18 04:39 Seg Neutrophils % 76.6 % (40.0-70.0) H 05/19/18 04:39 Seg Neutrophils # 5.5 K/mm3 (1.8-7.7) 05/19/18 04:39 Sodium 133 mmol/L (137-145) L 05/19/18 04:39 Potassium 4.1 mmol/L (3.6-5.0) 05/19/18 04:39 Chloride 95.3 mmol/L (98-107) L 05/19/18 04:39 Carbon Dioxide 18 mmol/L (22-30) L 05/19/18 04:39 Anion Gap 24 mmol/L 05/19/18 04:39 BUN 19 mg/dL (9-20) 05/19/18 04:39 Creatinine 1.7 mg/dL (0.8-1.5) H 05/19/18 04:39 Estimated GFR 52 ml/min 05/19/18 04:39 BUN/Creatinine Ratio 11 % 05/19/18 04:39 Glucose 414 mg/dL (75-100) H 05/19/18 04:39 Calcium 8.9 mg/dL (8.4-10.2) 05/19/18 04:39 Total Bilirubin 0.20 mg/dL (0.1-1.2) 05/19/18 04:39 AST 27 units/L (5-40) 05/19/18 04:39 ALT 29 units/L (7-56) 05/19/18 04:39 Alkaline Phosphatase 77 units/L (35-129) 05/19/18 04:39 Total Creatine Kinase 419 units/L (55-170) H 05/19/18 04:39 CK-MB (CK-2) 6.0 ng/mL (0.0-4.0) H 05/19/18 04:39 CK-MB (CK-2) Rel Index 1.4 (0-4) 05/19/18 04:39 Troponin T 0.039 ng/mL (0.00-0.029) H 05/19/18 04:39 Total Protein 7.2 g/dL (6.3-8.2) 05/19/18 04:39 Albumin 4.1 g/dL (3.9-5) 05/19/18 04:39 Albumin/Globulin Ratio 1.3 % 05/19/18 04:39 Triglycerides 688 mg/dL (2-149) H 05/19/18 04:39 Cholesterol 427 mg/dL (50-199) H 05/19/18 04:39 LDL Cholesterol Direct TNR 05/19/18 04:39 HDL Cholesterol 26 mg/dL (40-59) L 05/19/18 04:39 Cholesterol/HDL Ratio 16.42 % 05/19/18 04:39 - Imaging and Cardiology EKG: image reviewed Chest x-ray: image reviewed Assessment and Plan Advance Directives: Yes VTE prophylaxis?: Chemical Plan of care discussed with patient/family: Yes - Patient Problems (1) AICD discharge Current Visit: Yes Status: Acute Plan to address problem: Patient has had discharge of AICD patient had underlying rhythm of ventricular tachycardia. Most likely underlying ischemic versus nonischemic cardiomyopathy. Will console cardiology may require cardiac imaging to identify structural heart disease possible angiography and revascularization if appropriate. Workplace patient on amiodarone group for rhythm and also reintroduce beta andrzej to reduce risk factor for SCD. This patient had VT despite being on beta andrzej. Patient did say [facility] so need to consider noncompliances well. (2) Chest pain Current Visit: Yes Status: Acute Plan to address problem: Chest pain secondary to number one. Place patient on telemetry unit. Add morphine for chest pain evaluate cardiac iso enzymes. (3) Accelerated hypertension Current Visit: No Status: Acute Plan to address problem: Will continue Beta blockers with the addition of amlodipine at this time. Does try treat accordingly.Current blood pressure optimal 122/79. (4) Diabetes Current Visit: No Status: Acute Qualifiers: Diabetes mellitus type: type 2 Diabetes mellitus complication status: with hyperglycemia Plan to address problem: Patient presents with uncontrolled diabetes. Will obtain hemoglobin A1c to emily lamaate long-term control. Will place patient on sliding scale insulin. Will restart glyburide. At blood sugars of greater than 400 patient will most likely require some long-acting insulin. Patient has been out of medications because they have not come in from the [place] he states overthrew weeks. (5) Hypertriglyceridemia Current Visit: No Status: Acute Plan to address problem: Patient extremely high cholesterol and triglycerides. Introduce atorvastatin and will give medications for triglycerides prior to discharge. (6) CHF (congestive heart failure) Current Visit: No Status: Suspected Qualifiers: Qualified Code(s): I50.21 - Acute systolic (congestive) heart failure Plan to address problem: At present appears well compensated despite ventricular arrhythmia
[2018-05-19] MEDS: ASPIRIN PO SCH (11:22)
[2018-05-19] MEDS: DIABETA PO SCH (11:22)
[2018-05-19] MEDS: CATAPRES PO SCH (11:22)
[2018-05-19] MEDS: LOPRESSOR PO SCH ×2 (11:23→21:22)
[2018-05-19] MEDS: PEPCID IV SCH ×2 (11:23→21:23)
[2018-05-19] MEDS: IMDUR PO SCH (11:23)
[2018-05-19] MEDS: XARELTO PO SCH (11:23)
[2018-05-19] MEDS: SODIUM CHLORIDE FLUSH SYRINGE 10 ML IV SCH ×2 (11:23→22:49)
[2018-05-19] MEDS: NORVASC PO SCH (11:23)
[2018-05-19] MEDS: ZYLOPRIM PO SCH (11:24)
--- NOTE | 2018-05-19 12:05 | Event Note ---
Date: 05/19/18 Cardiology note dictated The pt. 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 Patient is admitted for further management. Will obtain the AICD interrogation. Currently on amiodarone drip and his rhythm is stable. Patient will be monitored and followed closely with you Thank you Dr. SUSANNA Bess
[2018-05-19] MEDS: HumaLOG SUB-Q SCH ×3 (12:36→21:27)
[2018-05-19] MEDS: TYLENOL PO PRN (20:36)
[2018-05-19] MEDS: CORDARONE PO SCH (21:22)
--- NOTE | 2018-05-19 23:39 | Consultation ---
CARDIOLOGY CONSULTATION HISTORY OF PRESENT ILLNESS: The patient is a 52-year-old gentleman who has been experiencing anterior chest discomfort intermittently within the last 1 week and has been feeling tired. Occasional difficulty in breathing was also noted. The patient experienced mild nausea with these episodes, not always related to any particular exertion. When he went to the bathroom, he started experiencing his AICD firing and this happened multiple times and he complains of chest being slower at this time and he is here for further cardiac evaluation. The patient is known to have coronary artery disease. He had myocardial infarction in 2001 and 2014. He had AICD placement. He is also known to have had pulmonary embolism x 2. The patient has longstanding history of hypertension and diabetes. The patient is followed at the [facility]. He was last seen there in 12/2017. At present, he is comfortable. Except soreness in the chest, he denies any significant tightness or pressure type of discomfort in the chest. He is not feeling any palpitations. REVIEW OF SYSTEMS: HEAD, EYES, EARS, NOSE AND THROAT: No symptoms. ENDOCRINE: The patient is known to have diabetes. GASTROINTESTINAL: No abdominal pain, nausea, or vomiting. PULMONARY: No symptoms. GENITOURINARY: No symptoms. CENTRAL NERVOUS SYSTEM: No history of cerebrovascular accident or convulsive disorder. SOCIAL HISTORY: Nonsmoker. Drinks alcohol occasionally. FAMILY HISTORY: Noncontributory. PHYSICAL EXAMINATION: GENERAL: Adult gentleman, well built, well nourished, in no acute distress, pleasant and cooperative. VITAL SIGNS: Blood pressure 104/59, pulse 68. HEAD, EYES, EARS, NOSE AND THROAT: Unremarkable. NECK: Supple. No thyromegaly. Both carotids are palpable and equal. Neck veins are flat. CHEST: Symmetrical. LUNGS: Clear. HEART: S1 and S2 are heard well. ABDOMEN: Soft, nontender. No hepatosplenomegaly. EXTREMITIES: No calf tenderness. Peripheral pulses are satisfactory. DIAGNOSTIC DATA: Rhythm strips are reviewed. The strips that are available to review showed a narrow QRS complex tachycardia with significant ST depression. LABORATORY DATA: WBC 7.2, hemoglobin 11.9, hematocrit 35.5. Sodium 133, potassium 4.1, BUN 19, creatinine 1.7, blood sugar 414. Hemoglobin A1c 8.9. Troponin 0.39, cholesterol 427, triglycerides 688, HDL 26, LDL not calculated. IMPRESSION: 1. Chest pain. 2. Coronary artery disease, status post myocardial infarction. 3. Cardiomyopathy, status post automatic implantable cardioverter-defibrillator placement, multiple firing by the automatic implantable cardioverter-defibrillator. Await automatic implantable cardioverter-defibrillator interrogation. 4. Uncontrolled diabetes. 5. Hypertension. 6. Severe hyperlipidemia, probably familial hyperlipidemia. The patient is currently on atorvastatin 80 mg daily. He may need PCSK9 inhibitors in addition to the statin. 7. History of pulmonary embolism x 2, currently on anticoagulants. The patient is seen for cardiac evaluation. Currently, he is on an amiodarone drip and that his rhythm is stable. He did not have any further firing of the ICD. We will get the AICD interrogated. The patient is being monitored closely. We will obtain an echocardiogram for further evaluation. Thank you for allowing me to participate in the care of this gentleman. JOB# [id number] DANIELA/NTS
[2018-05-20 05:38] LABS: Basophils # (Auto) 0.1 K/mm3 (0.0-0.1); Basophils % (Auto) 0.9 % (0.0-1.8); Eosinophils # (Auto) 0.2 K/mm3 (0.0-0.4); Eosinophils % (Auto) 1.7 % (0.0-4.3); Hemoglobin 12.3 gm/dl (11.8-15.2); Lymphocytes # (Auto) 3.6 K/mm3 (1.2-5.4); Lymphocytes % (Auto) 37.2 % (13.4-35.0); Mean Corpuscular HGB Conc 34 % (32-34); Mean Corpuscular Volume 91 fl (84-94); Monocytes # (Auto) 0.8 K/mm3 (0.0-0.8); Monocytes % (Auto) 8.4 % (0.0-7.3); Platelet Count 287 K/mm3 (140-440); Red Blood Count 3.95 M/mm3 (3.65-5.03); Red Cell Distribution Width 14.9 % (13.2-15.2)
[2018-05-20 05:53] LABS: Calcium 8.7 mg/dL (8.4-10.2)
[2018-05-20] MEDS ORDERED: LANTUS SUB-Q ONE (09:30)
[2018-05-20] MEDS: NORVASC PO SCH (09:56)
[2018-05-20] MEDS: ASPIRIN PO SCH (09:56)
[2018-05-20] MEDS: CORDARONE PO SCH ×2 (09:56→22:04)
[2018-05-20] MEDS: PEPCID IV SCH (09:56)
[2018-05-20] MEDS: DIABETA PO SCH (09:56)
[2018-05-20] MEDS: LOPRESSOR PO SCH ×2 (09:56→22:05)
[2018-05-20] MEDS: IMDUR PO SCH (09:57)
[2018-05-20] MEDS: HumaLOG SUB-Q SCH ×4 (09:57→22:05)
[2018-05-20] MEDS: XARELTO PO SCH (09:57)
[2018-05-20] MEDS: ZYLOPRIM PO SCH (09:57)
[2018-05-20] MEDS: SODIUM CHLORIDE FLUSH SYRINGE 10 ML IV SCH ×2 (09:58→22:08)
[2018-05-20] MEDS: CATAPRES PO SCH (10:02)
--- NOTE | 2018-05-20 10:53 | Progress Note ---
Assessment and Plan Assessment: AICD shock Atrial Fibrillation / atrial flutter Mildly elevated troponin S/p MS x 2 (01/2002 and 05/2014) - no intervention required per pt report H/o CMP AICD in situ H/o unprovoked PE x 2 (09/2015 and 12/2015) - took coumadin and Xarelto in the past H/o GI bleed - secondary to Xarelto CKD HTN DM Obesity H/o ETOH use Plan: AICD interrogation reviewed - pt noted to have AFib/AFlutter with RVR and was shocked appropriately 19 times for apparent SVT. Currently in SR. Echo reviewed - EF 55-60%, pacemaker wire in RV. Pt has apparently new diagnosis of AFib/AFlutter. He has h/o GI bleed while taking Xarelto for PE. nursing home systemic AC is recommended in setting of AFib/AFlutter. Indications, potential risks and benefits of shelter systemic AC reviewed with pt and he is agreeable to initiate Eliquis and monitor closely for s/s bleeding. Cont PO lopressor and PO amio. Obtain thyroid profile. Likely d/c home in AM if pt remains in SR. The patient has been seen in conjunction with Dr. Brown who agrees with the assessment and plan of care. Subjective Date of service: 05/20/18 Principal diagnosis: AICD shock Interval history: pt resting in bed, no current cardiac complaints. in SR on telemetry. Objective Last Vital Signs Temp 98.3 F 05/20/18 04:38 Pulse 61 05/20/18 04:38 Resp 18 05/20/18 04:38 BP 117/64 05/20/18 04:38 Pulse Ox 98 05/20/18 04:38 - Physical Examination General: No Apparent Distress HEENT: Positive: PERRL, Normocephaly, Mucus Membranes Moist Neck: Positive: neck supple, trachea midline Cardiac: Positive: Reg Rate and Rhythm, S1/S2 Lungs: Positive: clear to auscultation Neuro: Positive: Grossly Intact Abdomen: Positive: Soft. Negative: Tender Skin: Negative: Rash, Wound Musculoskeletal: No Pain Extremities: Absent: edema - Labs and Meds CBC 05/20/18 Range/Units 04:58 WBC 9.8 (4.5-11.0) K/mm3 RBC 3.95 (3.65-5.03) M/mm3 Hgb 12.3 (11.8-15.2) gm/dl Hct 36.0 (35.5-45.6) % Plt Count 287 (140-440) K/mm3 Lymph # 3.6 (1.2-5.4) K/mm3 [place] # 0.8 (0.0-0.8) K/mm3 Eos # 0.2 (0.0-0.4) K/mm3 Baso # 0.1 (0.0-0.1) K/mm3 Comprehensive Metabolic Panel 05/20/18 Range/Units 04:58 Sodium 133 L (137-145) mmol/L Potassium 4.4 (3.6-5.0) mmol/L Chloride 95.6 L (98-107) mmol/L Carbon Dioxide 23 (22-30) mmol/L BUN 20 (9-20) mg/dL Creatinine 1.6 H (0.8-1.5) mg/dL Glucose 246 H (75-100) mg/dL Calcium 8.7 (8.4-10.2) mg/dL - Imaging and Cardiology EKG: image reviewed Pharmacologic stress test: report reviewed (Lexiscan thallium stress test done 01/03/17 was negative for ischemia, EF 42%.) Cardiac cath: report reviewed (Cath report from [facility] in [place], [place] done 04/2015 reviewed. Patent coronary arteries at that time. ) - Telemetry EKG Rhythm: Sinus Rhythm
[2018-05-20] MEDS: PERCOCET 5/325 PO PRN ×2 (12:41→20:26)
[2018-05-20] MEDS: ELIQUIS PO SCH ×2 (12:42→22:04)
--- NOTE | 2018-05-20 15:46 | Progress Note ---
Assessment and Plan Assessment and plan: (1) AICD discharge - Patient is on amiodarone, beta andrzej -Patient denies any discharged today -cardiology consult appreciated (2) Chest pain - due to #1 (3) Accelerated hypertension - We'll controlled with amlodipine and beta andrzej (4) Diabetes - Sliding scale insulin and Lantus daily at bedtime - Monitor Accu-Chek, ADA diet, will adjust insulin as needed (5) Hypertriglyceridemia - on atorvastatin. (6) CHF (congestive heart failure) At present appears well compensated despite ventricular arrhythmia DVT prophylaxis; on eliquis History Interval history: patient was seen and evaluated this morning, patient did have any AICD discharges after admission. Patient denied any chest pain or shortness of breath. Hospitalist Physical - Physical exam Narrative exam: Not in cardiopulmonary distress. The patient is obese. Vital signs as documented. Head exam is unremarkable. No scleral icterus . Neck is without jugular venous distension, thyromegaly, or carotid bruits. Lungs are clear to auscultation. Cardiac exam reveals regular rate and Rhythm. Abdominal exam reveals normal bowel sounds, no masses, no organomegaly and no aortic enlargement. Extremities are nonedematous and both femoral and pedal pulses are normal. 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 No focal weakness. - Constitutional Vitals: Temp Pulse Resp BP Pulse Ox 97.5 F L 75 18 122/77 98 05/20/18 12:03 05/20/18 14:00 05/20/18 12:03 05/20/18 12:03 05/20/18 13:06 General appearance: Present: no acute distress, well-nourished Results - Labs CBC & Chem 7: 05/20/18 04:58 05/20/18 04:58 Labs: Laboratory Last Values WBC 9.8 K/mm3 (4.5-11.0) 05/20/18 04:58 RBC 3.95 M/mm3 (3.65-5.03) 05/20/18 04:58 Hgb 12.3 gm/dl (11.8-15.2) 05/20/18 04:58 Hct 36.0 % (35.5-45.6) 05/20/18 04:58 MCV 91 fl (84-94) 05/20/18 04:58 MCH 31 pg (28-32) 05/20/18 04:58 MCHC 34 % (32-34) 05/20/18 04:58 RDW 14.9 % (13.2-15.2) 05/20/18 04:58 Plt Count 287 K/mm3 (140-440) 05/20/18 04:58 Lymph % (Auto) 37.2 % (13.4-35.0) H 05/20/18 04:58 [place] % (Auto) 8.4 % (0.0-7.3) H 05/20/18 04:58 Eos % (Auto) 1.7 % (0.0-4.3) 05/20/18 04:58 Baso % (Auto) 0.9 % (0.0-1.8) 05/20/18 04:58 Lymph # 3.6 K/mm3 (1.2-5.4) 05/20/18 04:58 [place] # 0.8 K/mm3 (0.0-0.8) 05/20/18 04:58 Eos # 0.2 K/mm3 (0.0-0.4) 05/20/18 04:58 Baso # 0.1 K/mm3 (0.0-0.1) 05/20/18 04:58 Seg Neutrophils % 51.8 % (40.0-70.0) 05/20/18 04:58 Seg Neutrophils # 5.1 K/mm3 (1.8-7.7) 05/20/18 04:58 Sodium 133 mmol/L (137-145) L 05/20/18 04:58 Potassium 4.4 mmol/L (3.6-5.0) 05/20/18 04:58 Chloride 95.6 mmol/L (98-107) L 05/20/18 04:58 Carbon Dioxide 23 mmol/L (22-30) 05/20/18 04:58 Anion Gap 19 mmol/L 05/20/18 04:58 BUN 20 mg/dL (9-20) 05/20/18 04:58 Creatinine 1.6 mg/dL (0.8-1.5) H 05/20/18 04:58 Estimated GFR 56 ml/min 05/20/18 04:58 BUN/Creatinine Ratio 13 % 05/20/18 04:58 Glucose 246 mg/dL (75-100) H 05/20/18 04:58 POC Glucose 221 (70-105) H 05/20/18 12:08 Hemoglobin A1c 8.9 % (4-6) H 05/19/18 04:39 Calcium 8.7 mg/dL (8.4-10.2) 05/20/18 04:58 Total Bilirubin 0.20 mg/dL (0.1-1.2) 05/19/18 04:39 AST 27 units/L (5-40) 05/19/18 04:39 ALT 29 units/L (7-56) 05/19/18 04:39 Alkaline Phosphatase 77 units/L (35-129) 05/19/18 04:39 Total Creatine Kinase 419 units/L (55-170) H 05/19/18 04:39 CK-MB (CK-2) 6.0 ng/mL (0.0-4.0) H 05/19/18 04:39 CK-MB (CK-2) Rel Index 1.4 (0-4) 05/19/18 04:39 Troponin T 0.039 ng/mL (0.00-0.029) H 05/19/18 04:39 Total Protein 7.2 g/dL (6.3-8.2) 05/19/18 04:39 Albumin 4.1 g/dL (3.9-5) 05/19/18 04:39 Albumin/Globulin Ratio 1.3 % 05/19/18 04:39 Triglycerides 688 mg/dL (2-149) H 05/19/18 04:39 Cholesterol 427 mg/dL (50-199) H 05/19/18 04:39 LDL Cholesterol Direct TNR 05/19/18 04:39 HDL Cholesterol 26 mg/dL (40-59) L 05/19/18 04:39 Cholesterol/HDL Ratio 16.42 % 05/19/18 04:39 TSH 1.370 mlU/mL (0.270-4.200) 05/20/18 12:26 Free T4 0.96 ng/dL (0.76-1.46) 05/20/18 12:26
[2018-05-20] MEDS: PEPCID PO SCH (22:02)
[2018-05-20] MEDS: LANTUS SUB-Q SCH (22:07)
[2018-05-21 06:22] LABS: BUN/Creatinine Ratio 17; Blood Urea Nitrogen 24 mg/dL (9-20); Calcium 8.7 mg/dL (8.4-10.2); Hemolysis Index 181
[2018-05-21] MEDS: HumaLOG SUB-Q SCH ×4 (08:00→21:53)
[2018-05-21] MEDS: CATAPRES PO SCH (10:19)
[2018-05-21] MEDS: DIABETA PO SCH (10:19)
[2018-05-21] MEDS: NORVASC PO SCH (10:19)
[2018-05-21] MEDS: BABY ASPIRIN PO SCH (10:19)
[2018-05-21] MEDS: LOPRESSOR PO SCH ×3 (10:19→21:54)
[2018-05-21] MEDS: IMDUR PO SCH (10:19)
[2018-05-21] MEDS: ELIQUIS PO SCH ×2 (10:19→21:53)
[2018-05-21] MEDS: PEPCID PO SCH ×2 (10:19→21:53)
[2018-05-21] MEDS: CORDARONE PO SCH ×2 (10:20→21:53)
[2018-05-21] MEDS: ZYLOPRIM PO SCH (10:20)
--- NOTE | 2018-05-21 11:56 | Discharge Summary ---
Providers - Providers Date of Admission: 05/19/18 07:07 Date of discharge: 05/21/18 Attending physician: VONDA GAUTAM 05/19/18 09:44 Consult to Physician [CONS] Stat Comment: Consulting Provider: NADEEN ORTEZ Physician Instructions: Reason For Exam: chest pain V TAch Primary care physician: MANAGER [facility]ATORY Hospitalization Reason for admission: cp and SOB Condition: Fair Hospital course: Patient is a 52-year-old male with a history of hyperlipidemia, diabetes, coronary disease, and gout presents with a four-day history of chest pain described as sharp 10 out of 10 nonradiating associated with shortness of breath, nausea and vomiting. The patient also was noted to have several shocks from his AICD. Cardiology saw the patient in consultation and performed AICD interrogation which revealed AFib/AFlutter with RVR and was shocked appropriately 19 times for apparent SVT. Echocardiogram was completed and revealed EF 55-60% with pacemaker wire in RV. Cardiology felt that this was apparently a new diagnosis of A. fib/A flutter. He has h/o GI bleed while taking Xarelto for PE. [facility] systemic AC is recommended in setting of AFib/AFlutter. 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 The patient remained in normal sinus rhythm with PO lopressor and PO amio. Thyroid profile was normal. Cardiology felt patient could be discharged home. Dedicated distress and 32 minutes. Disposition: DC- TO HOME OR SELFCARE Time spent for discharge: 32 - Discharge Diagnoses (1) Afib Status: Acute (2) Atrial flutter Status: Acute (3) AICD discharge Status: Acute (4) Chest pain Status: Acute (5) Accelerated hypertension Status: Acute (6) CAD (coronary artery disease) Status: Chronic Core Measure Documentation - Palliative Care Palliative Care/ Comfort Measures: Not Applicable - Core Measures Any of the following diagnoses?: none Exam - Constitutional Vitals: Temp Pulse Resp BP Pulse Ox 98.0 F 73 20 154/85 97 05/21/18 09:07 05/21/18 09:07 05/21/18 09:07 05/21/18 09:07 05/21/18 09:07 General appearance: Present: no acute distress, well-nourished - EENT Eyes: Present: PERRL ENT: hearing intact, clear oral mucosa - Neck Neck: Present: supple, normal ROM - Respiratory Respiratory effort: normal Respiratory: bilateral: CTA - Cardiovascular Heart Sounds: Present: S1 & S2. Absent: rub, click - Extremities Extremities: pulses symmetrical, No edema Peripheral Pulses: within normal limits - Abdominal General gastrointestinal: Present: soft, non-tender, non-distended, normal bowel sounds Male genitourinary: Present: normal - Integumentary Integumentary: Present: clear, warm, dry - Musculoskeletal Musculoskeletal: gait normal, strength equal bilaterally - Psychiatric Psychiatric: appropriate mood/affect, intact judgment & insight - Neurologic Neurologic: CNII-XII intact, moves all extremities Plan Activity: no restrictions Weight Bearing Status: Full Weight Bearing Diet: regular Follow up with: PRIMARY CARE, [Primary Care Provider] - 3-5 Days GERMAN NICOLAS MD [Staff Physician] - 7 Days Prescriptions: Allopurinol [Zyloprim] 300 mg PO DAILY #30 tablet Amiodarone [Cordarone 200 MG TAB] 200 mg PO BID #60 tablet amLODIPine [Norvasc] 10 mg PO DAILY #30 tablet Apixaban [Eliquis] 5 mg PO Q12HR #60 tablet Aspirin [Aspirin BABY CHEW TAB] 81 mg PO QDAY #30 tab.chew AtorvaSTATin [Lipitor] 80 mg PO QHS #30 tablet cloNIDine [Catapres] 0.1 mg PO DAILY #30 tablet Famotidine [Pepcid] 20 mg PO BID #60 tablet ISOSORBIDE MONOnitrate [Imdur ER] 60 mg PO DAILY #30 tablet Metoprolol [Lopressor TAB] 100 mg PO BID #60 tablet oxyCODONE /ACETAMINOPHEN [Percocet 5/325 mg] 1 tab PO Q4H PRN #12 tablet PRN Reason: Pain, Moderate (4-6)
--- NOTE | 2018-05-21 12:49 | Progress Note ---
Assessment and Plan Assessment: AICD shock Atrial Fibrillation / atrial flutter --> SR Mildly elevated troponin S/p [place] x 2 (01/2002 and 05/2014) - no intervention required per pt report H/o CMP AICD in situ H/o unprovoked PE x 2 (09/2015 and 12/2015) - took coumadin and Xarelto in the past H/o GI bleed - secondary to Xarelto CKD HTN DM Obesity H/o ETOH use Plan: Currently stable cardiac status. Pt remains in NSR. Pt may discharge home from cardiology standpoint on current cardiac regimen. Recommend pt follow up with [facility]ology within 1-2 weeks of hospital discharge. The patient has been seen in conjunction with Dr. Brown who agrees with the assessment and plan of care. Subjective Date of service: 05/21/18 Principal diagnosis: AICD shock Interval history: pt resting in bed, no current cardiac complaints. in SR on telemetry. Objective Last Vital Signs Temp 98.0 F 05/21/18 09:07 Pulse 73 05/21/18 09:07 Resp 20 05/21/18 09:07 BP 154/85 05/21/18 09:07 Pulse Ox 97 05/21/18 09:07 - Physical Examination General: No Apparent Distress HEENT: Positive: PERRL, Normocephaly, Mucus Membranes Moist Neck: Positive: neck supple, trachea midline Cardiac: Positive: Reg Rate and Rhythm, S1/S2 Lungs: Positive: Decreased Breath Sounds Neuro: Positive: Grossly Intact Abdomen: Positive: Soft. Negative: Tender Skin: Negative: Rash, Wound Musculoskeletal: No Pain Extremities: Absent: edema - Labs and Meds Comprehensive Metabolic Panel 05/21/18 Range/Units 05:16 Sodium 135 L (137-145) mmol/L Potassium 4.5 (3.6-5.0) mmol/L Chloride 96.7 L (98-107) mmol/L Carbon Dioxide 24 (22-30) mmol/L BUN 24 H (9-20) mg/dL Creatinine 1.4 (0.8-1.5) mg/dL Glucose 185 H (75-100) mg/dL Calcium 8.7 (8.4-10.2) mg/dL - Imaging and Cardiology EKG: image reviewed Cardiac cath: report reviewed (Cath report from [facility] in [place], [place] done 04/2015 reviewed. Patent coronary arteries at that time. )
[2018-05-21] MEDS: SODIUM CHLORIDE FLUSH SYRINGE 10 ML IV SCH ×2 (13:01→21:54)
[2018-05-21] MEDS: TYLENOL PO PRN (21:52)
[2018-05-21] MEDS: LANTUS SUB-Q SCH (21:53)
--- NOTE | 2018-05-22 09:28 | Progress Note ---
Assessment and Plan Assessment and plan: (1) AICD discharge - Patient is on amiodarone, beta andrzej -Patient denies any discharged today -cardiology consult appreciated (2) Chest pain - due to #1 (3) Accelerated hypertension - We'll controlled with amlodipine and beta andrzej (4) Diabetes - Sliding scale insulin and Lantus daily at bedtime - Monitor Accu-Chek, ADA diet, will adjust insulin as needed (5) Hypertriglyceridemia - on atorvastatin. (6) CHF (congestive heart failure) - Patient Problems (1) Afib Current Visit: Yes Status: Acute (2) Atrial flutter Current Visit: Yes Status: Acute (3) AICD discharge Current Visit: Yes Status: Acute (4) Chest pain Current Visit: Yes Status: Acute (5) Accelerated hypertension Current Visit: No Status: Acute (6) CAD (coronary artery disease) Current Visit: No Status: Chronic History Interval history: No new issues overnight. Hospitalist Physical - Constitutional Vitals: Temp Pulse Resp BP Pulse Ox 97.8 F 70 18 151/87 99 05/22/18 08:47 05/22/18 08:47 05/22/18 08:47 05/22/18 08:47 05/22/18 08:47 General appearance: Present: no acute distress, well-nourished - EENT Eyes: Present: PERRL, EOM intact ENT: hearing intact, clear oral mucosa, dentition normal - Neck Neck: Present: supple, normal ROM - Respiratory Respiratory effort: normal Respiratory: bilateral: CTA - Cardiovascular Rhythm: regular Heart Sounds: Present: S1 & S2. Absent: gallop, rub - Extremities Extremities: no ischemia, No edema, Full ROM - Abdominal General gastrointestinal: soft, non-tender, non-distended, normal bowel sounds - Integumentary Integumentary: Present: clear, warm, dry - Neurologic Neurologic: CNII-XII intact, moves all extremities Results - Labs CBC & Chem 7: 05/20/18 04:58 05/21/18 05:16 Labs: Laboratory Last Values WBC 9.8 K/mm3 (4.5-11.0) 05/20/18 04:58 RBC 3.95 M/mm3 (3.65-5.03) 05/20/18 04:58 Hgb 12.3 gm/dl (11.8-15.2) 05/20/18 04:58 Hct 36.0 % (35.5-45.6) 05/20/18 04:58 MCV 91 fl (84-94) 05/20/18 04:58 MCH 31 pg (28-32) 05/20/18 04:58 MCHC 34 % (32-34) 05/20/18 04:58 RDW 14.9 % (13.2-15.2) 05/20/18 04:58 Plt Count 287 K/mm3 (140-440) 05/20/18 04:58 Lymph % (Auto) 37.2 % (13.4-35.0) H 05/20/18 04:58 [place] % (Auto) 8.4 % (0.0-7.3) H 05/20/18 04:58 Eos % (Auto) 1.7 % (0.0-4.3) 05/20/18 04:58 Baso % (Auto) 0.9 % (0.0-1.8) 05/20/18 04:58 Lymph # 3.6 K/mm3 (1.2-5.4) 05/20/18 04:58 [place] # 0.8 K/mm3 (0.0-0.8) 05/20/18 04:58 Eos # 0.2 K/mm3 (0.0-0.4) 05/20/18 04:58 Baso # 0.1 K/mm3 (0.0-0.1) 05/20/18 04:58 Seg Neutrophils % 51.8 % (40.0-70.0) 05/20/18 04:58 Seg Neutrophils # 5.1 K/mm3 (1.8-7.7) 05/20/18 04:58 Sodium 135 mmol/L (137-145) L 05/21/18 05:16 Potassium 4.5 mmol/L (3.6-5.0) 05/21/18 05:16 Chloride 96.7 mmol/L (98-107) L 05/21/18 05:16 Carbon Dioxide 24 mmol/L (22-30) 05/21/18 05:16 Anion Gap 19 mmol/L 05/21/18 05:16 BUN 24 mg/dL (9-20) H 05/21/18 05:16 Creatinine 1.4 mg/dL (0.8-1.5) 05/21/18 05:16 Estimated GFR > 60 ml/min 05/21/18 05:16 BUN/Creatinine Ratio 17 % 05/21/18 05:16 Glucose 185 mg/dL (75-100) H 05/21/18 05:16 POC Glucose 147 (70-105) H 05/22/18 08:02 Hemoglobin A1c 8.9 % (4-6) H 05/19/18 04:39 Calcium 8.7 mg/dL (8.4-10.2) 05/21/18 05:16 Total Bilirubin 0.20 mg/dL (0.1-1.2) 05/19/18 04:39 AST 27 units/L (5-40) 05/19/18 04:39 ALT 29 units/L (7-56) 05/19/18 04:39 Alkaline Phosphatase 77 units/L (35-129) 05/19/18 04:39 Total Creatine Kinase 419 units/L (55-170) H 05/19/18 04:39 CK-MB (CK-2) 6.0 ng/mL (0.0-4.0) H 05/19/18 04:39 CK-MB (CK-2) Rel Index 1.4 (0-4) 05/19/18 04:39 Troponin T 0.039 ng/mL (0.00-0.029) H 05/19/18 04:39 Total Protein 7.2 g/dL (6.3-8.2) 05/19/18 04:39 Albumin 4.1 g/dL (3.9-5) 05/19/18 04:39 Albumin/Globulin Ratio 1.3 % 05/19/18 04:39 Triglycerides 688 mg/dL (2-149) H 05/19/18 04:39 Cholesterol 427 mg/dL (50-199) H 05/19/18 04:39 LDL Cholesterol Direct TNR 05/19/18 04:39 HDL Cholesterol 26 mg/dL (40-59) L 05/19/18 04:39 Cholesterol/HDL Ratio 16.42 % 05/19/18 04:39 TSH 1.370 mlU/mL (0.270-4.200) 05/20/18 12:26 Free T4 0.96 ng/dL (0.76-1.46) 05/20/18 12:26
[2018-05-22] MEDS: ELIQUIS PO SCH (10:30)
[2018-05-22] MEDS: CORDARONE PO SCH (10:30)
[2018-05-22] MEDS: PEPCID PO SCH (10:30)
[2018-05-22] MEDS: DIABETA PO SCH (10:30)
[2018-05-22] MEDS: ZYLOPRIM PO SCH (10:31)
[2018-05-22] MEDS: BABY ASPIRIN PO SCH (10:31)
[2018-05-22] MEDS: LOPRESSOR PO SCH (10:40)
[2018-05-22] MEDS: IMDUR PO SCH (10:40)
--- NOTE | 2018-05-22 10:42 | Progress Note ---
Assessment and Plan Assessment: AICD shock Atrial Fibrillation / atrial flutter --> SR Mildly elevated troponin S/p MD x 2 (01/2002 and 05/2014) - no intervention required per pt report H/o CMP AICD in situ H/o unprovoked PE x 2 (09/2015 and 12/2015) - took coumadin and Xarelto in the past H/o GI bleed - secondary to Xarelto CKD HTN DM Obesity H/o ETOH use Plan: Currently stable cardiac status. Pt remains in NSR. Discharge was held yesterday due to hypotension, BPs WNL this AM. Pt may discharge home from cardiology standpoint on current cardiac regimen. Recommend pt follow up with [facility] within 1-2 weeks of hospital discharge. The patient has been seen in conjunction with Dr. Brown who agrees with the assessment and plan of care. Subjective Date of service: 05/22/18 Principal diagnosis: AICD shock Interval history: pt resting in bed, no current cardiac complaints. in SR on telemetry. discharge was held yesterday due to hypotension. BPs now WNL. Objective Vital Signs Temp Pulse Pulse Resp BP Pulse Ox 05/22/18 08:47 97.8 F 70 18 151/87 99 05/22/18 08:20 86 18 96 05/22/18 03:35 98.4 F 70 18 123/74 99 05/22/18 00:09 97.5 F L 86 17 113/64 97 05/21/18 21:12 79 05/21/18 19:48 22 05/21/18 19:33 98.5 F 81 17 116/64 99 05/21/18 17:25 100 05/21/18 16:23 97.9 F 20 05/21/18 16:19 97.9 F 75 20 107/67 99 05/21/18 15:43 63 - Physical Examination General: No Apparent Distress HEENT: Positive: PERRL, Normocephaly, Mucus Membranes Moist Neck: Positive: neck supple, trachea midline Cardiac: Positive: Reg Rate and Rhythm, S1/S2 Lungs: Positive: Decreased Breath Sounds Neuro: Positive: Grossly Intact Abdomen: Positive: Soft. Negative: Tender Skin: Negative: Rash, Wound Musculoskeletal: No Pain Extremities: Absent: edema - Imaging and Cardiology EKG: image reviewed Cardiac cath: report reviewed (Cath report from [facility] in [place], [place] done 04/2015 reviewed. Patent coronary arteries at that time. ) - Telemetry EKG Rhythm: Sinus Rhythm
[2018-05-22 11:56] VITALS: BP 100/58
== END 2018-05-22 14:35 | disposition home or self-care (01) | DRG 309 ==
LOC: ED 04:17 → 4A 07:07
PROVIDERS: ADMIT Internal Medicine; ATTEND Hospitalist
PROC: 4B02XTZ Measurement of Cardiac Defibrillator, External Approach (ICD-10-PCS; principal; 2018-05-19)
DX: I48.92 Unspecified atrial flutter (principal); I13.0 Hypertensive heart and chronic kidney disease with heart failure and stage 1 through stage 4 chronic kidney disease, or unspecified chronic kidney disease; I47.1 Supraventricular tachycardia; I42.9 Cardiomyopathy, unspecified; I50.9 Heart failure, unspecified; M10.9 Gout, unspecified; K21.9 Gastro-esophageal reflux disease without esophagitis; E11.65 Type 2 diabetes mellitus with hyperglycemia; I25.10 Atherosclerotic heart disease of native coronary artery without angina pectoris; E78.5 Hyperlipidemia, unspecified; E78.1 Pure hyperglyceridemia; I48.91 Unspecified atrial fibrillation; N18.9 Chronic kidney disease, unspecified; E11.22 Type 2 diabetes mellitus with diabetic chronic kidney disease; Z83.3 Family history of diabetes mellitus; Z86.711 Personal history of pulmonary embolism; Z86.73 Personal history of transient ischemic attack (TIA), and cerebral infarction without residual deficits; Z79.899 Other long term (current) drug therapy; Z82.49 Family history of ischemic heart disease and other diseases of the circulatory system; Z88.8 Allergy status to other drugs, medicaments and biological substances; Z95.810 Presence of automatic (implantable) cardiac defibrillator; I25.2 Old myocardial infarction
CPT/HCPCS: 36415; 71045; 80048; 80053; 80061; 82550; 82553; 82962; 83036; 84439; 84443; 84484; 85025; 93005; 93010; 93306; 96374; 96375; G0378; A9270-GY; J0282; J1815; J2270; J2405; J3010; J7060

== ENCOUNTER 2018-07-22 01:49 | Emergency (ER) | payer MEDICARE, OTHER ==
[2018-07-22 02:34] LABS: BUN/Creatinine Ratio 18; Blood Urea Nitrogen 27 mg/dL (9-20); Calcium 9.5 mg/dL (8.4-10.2); Hemolysis Index 272
[2018-07-22 02:36] LABS: INR 0.94 (0.87-1.13)
[2018-07-22] MEDS ORDERED: SUBLIMAZE IV ONE (02:39)
[2018-07-22] MEDS ORDERED: PEPCID IV ONE (02:39)
[2018-07-22] MEDS ORDERED: CARAFATE PO ONE (02:40)
[2018-07-22 02:41] LABS: Hematocrit 41.9 % (35.5-45.6); Hemoglobin 14.2 gm/dl (11.8-15.2); Mean Corpuscular Volume 92 fl (84-94); Red Blood Count 4.57 M/mm3 (3.65-5.03)
[2018-07-22 02:42] LABS: Basophils # (Auto) 0.1 K/mm3 (0.0-0.1); Basophils % (Auto) 1.6 % (0.0-1.8); Eosinophils # (Auto) 0.2 K/mm3 (0.0-0.4); Eosinophils % (Auto) 2.4 % (0.0-4.3); Lymphocytes # (Auto) 3.5 K/mm3 (1.2-5.4); Lymphocytes % (Auto) 40.5 % (13.4-35.0); Mean Corpuscular HGB Conc 34 % (32-34); Monocytes # (Auto) 0.7 K/mm3 (0.0-0.8); Platelet Count 294 K/mm3 (140-440); Red Cell Distribution Width 14.6 % (13.2-15.2)
--- NOTE | 2018-07-22 03:46 | Emergency Department Report ---
ED General Adult HPI - General Chief complaint: Chest Pain Stated complaint: CP/SOB/DIZZINESS Time Seen by Provider: 07/22/18 02:14 Source: patient, RN notes reviewed, old records reviewed Mode of arrival: Ambulatory Limitations: No Limitations - History of Present Illness Initial comments: This is a 52-year-old gentleman. The patient is known to this previously. The patient has a reported history of myocardial infarction, ICD device, history of heart disease, high cholesterol, pulmonary embolism 2, currently on anticoagulation, eliquis Patient was admitted to [facility] last month, June 21 to June 25. He was evaluated for chest pain, dizziness and shortness of breath. The patient had a cardiac catheterization performed, which demonstrated moderate nonobstructive disease noted in proximal D1, as well as mid to distal RCA. In ICD interrogation was also performed, demonstrating no evidence of V. tach or V. fib, but multiple episodes of atrial tachycardia. An echocardiogram was done demonstrating the presence of mild pulmonary hypertension, with an ejection fraction of 50-55%. He supposed to follow up with his tariff compiler at the [facility]. He reports he is scheduled for an ablation in September. The cardiac catheterization showed that the left main coronary artery was a short vessel, and that the LAD and circumflex had almost separate ostia. The proximal LAD was shown to have a 10-20% occlusion, with a 50% occlusion in t he proximal D1. Mid distal LAD was found to be 10-20%. Circumflex obtuse marginal was found to be 10-20%. Ramus intermedius found to be 10% Right coronary artery 50% focal mid to distal RCA lesion. A coronary dominance was found to be codominant Post catheterization impression was moderate nonobstructive disease, with medical therapy subsequently recommended. The patient presents to the ER today with a complaint of chest pain. The chest pain is left-sided, central and right-sided. It is intermittent. It does not radiate to the back, arms or neck. The chest pain is been intermittent for months. It does not appear to have exacerbating or relieving factors. Patient reports that he has pain basically every day. The pain that he came in today for is the same as prior episodes of pain, only slightly more intense. He also describes lightheadedness. He denies syncope. He denies sudden or thunderclap headache. He also describes shortness of breath. He reports chronic exertional shortness of breath. This is not new, worsening or different. He reports the shortness of breath that he is expressing today feels like "sand in my lungs." There is no leg pain. There is no leg swelling. Positive compliance with aspirin, positive compliance with systemic anticoagulation. -: Gradual, week(s), month(s) Location: chest Severity scale (0 -10): 10 Quality: aching Consistency: intermittent Improves with: none Worsens with: none - Related Data Home Medications Medication Instructions Recorded Confirmed Last Taken Amlodipine Besylate [Norvasc] 10 mg PO DAILY 06/07/18 06/07/18 06/06/18 Apixaban [Eliquis] 5 mg PO DAILY 06/07/18 06/07/18 06/06/18 Aspirin EC [Aspirin Enteric Coated 81 mg PO QDAY 06/07/18 06/07/18 06/06/18 TAB] Atorvastatin Calcium 80 mg PO DAILY 06/07/18 06/07/18 06/06/18 Chlorthalidone 50 mg PO DAILY 06/07/18 06/07/18 06/06/18 Colchicine 0.6 mg PO DAILY 06/07/18 06/07/18 06/06/18 cloNIDine [Catapres] 0.1 mg PO DAILY 06/07/18 06/07/18 06/06/18 Previous Rx's Medication Instructions Recorded Last Taken Type Magnesium Oxide 400 mg PO QDAY #14 tablet 06/07/18 Unknown Rx Metoprolol [Lopressor TAB] 150 mg PO BID #60 tablet 06/07/18 Unknown Rx Allergies Allergy/AdvReac Type Severity Reaction Status Date / Time heparin Allergy Mild Hives Verified 04/05/18 12:50 metformin Allergy Mild Hives Verified 04/05/18 12:50 ED Review of Systems ROS: Stated complaint: CP/SOB/DIZZINESS Other details as noted in HPI Constitutional: malaise Eyes: denies: eye discharge ENT: denies: epistaxis Respiratory: shortness of breath Cardiovascular: chest pain Gastrointestinal: denies: vomiting, melena, hematochezia Musculoskeletal: denies: back pain Skin: denies: lesions Neurological: weakness Psychiatric: anxiety ED Past Medical Hx - Past Medical History Previous Medical History?: Yes Hx Hypertension: Yes Hx Heart Attack/AMI: Yes Hx Congestive Heart Failure: Yes Hx Diabetes: Yes Hx Pulmonary Embolism: Yes Hx GERD: Yes Hx Sickle Cell Disease: No Hx Arthritis: Yes (GOUT) Hx Asthma: No Hx COPD: No Hx HIV: No Additional medical history: HYPERTROPHIC CARDIOMYOPATHY. TIA - Surgical History Past Surgical History?: Yes Hx Coronary Stent: Yes Hx Open Heart Surgery: Yes (DEFIBRILLATOR) Hx Internal Defibrillator: Yes Additional Surgical History: LEFT ELBOW. DOUBLE HERNIA REPAIR. LEFT AND RIGHT MENISCUS - Social History Smoking Status: Never Smoker - Medications Home Medications: Home Medications Medication Instructions Recorded Confirmed Last Taken Type Amlodipine Besylate [Norvasc] 10 mg PO DAILY 06/07/18 06/07/18 06/06/18 History Apixaban [Eliquis] 5 mg PO DAILY 06/07/18 06/07/18 06/06/18 History Aspirin EC [Aspirin Enteric Coated 81 mg PO QDAY 06/07/18 06/07/18 06/06/18 History TAB] Atorvastatin Calcium 80 mg PO DAILY 06/07/18 06/07/18 06/06/18 History Chlorthalidone 50 mg PO DAILY 06/07/18 06/07/18 06/06/18 History Colchicine 0.6 mg PO DAILY 06/07/18 06/07/18 06/06/18 History Magnesium Oxide 400 mg PO QDAY #14 tablet 06/07/18 Unknown Rx Metoprolol [Lopressor TAB] 150 mg PO BID #60 tablet 06/07/18 Unknown Rx cloNIDine [Catapres] 0.1 mg PO DAILY 06/07/18 06/07/18 06/06/18 History ED Physical Exam - General Limitations: No Limitations General appearance: alert, anxious - Head Head exam: Present: atraumatic, normocephalic - Eye Eye exam: Present: normal appearance, PERRL, EOMI, other (visual acuity intact to finger counting, color perception, reading at a close distance). Absent: nystagmus - ENT ENT exam: Present: normal exam, normal orophraynx, mucous membranes moist, normal external ear exam - Neck Neck exam: Present: normal inspection, full ROM. Absent: tenderness, menin gismus - Respiratory Respiratory exam: Present: normal lung sounds bilaterally. Absent: respiratory distress - Cardiovascular Cardiovascular Exam: Present: regular rate, normal rhythm, normal heart sounds. Absent: bradycardia, tachycardia, irregular rhythm, systolic murmur, diastolic murmur, rubs, gallop - GI/Abdominal GI/Abdominal exam: Present: soft. Absent: distended, tenderness, guarding, rebound, rigid, pulsatile mass - Rectal Rectal exam: Present: deferred - Extremities Exam Extremities exam: Present: normal inspection, full ROM, other (2+ pulses noted in the bilateral upper, lower extremities. Compartments soft. No long bony tenderness. The pelvis is stable.). Absent: joint swelling, calf tenderness - Back Exam Back exam: Present: normal inspection, full ROM. Absent: tenderness, CVA tenderness (R), paraspinal tenderness, vertebral tenderness - Neurological Exam Neurological exam: Present: alert (there is no pass pointing. There is normal [id number]. There is negative pronator drift.), oriented X3, other (Extraocular movements intact. Tongue midline. No facial droop. Facial sensation intact to light touch in the V1, V2, V3 distribution bilaterally. 5 and 5 strength in 4 extremities.. Sensation is intact to light touch in 4 extremities.). Absent: motor sensory deficit - Psychiatric Psychiatric exam: Present: anxious - Skin Skin exam: Present: warm, dry, intact, normal color. Absent: rash ED Course Vital Signs 07/22/18 07/22/18 07/22/18 01:53 02:28 04:04 Temperature 98.0 F 98.3 F Pulse Rate 69 70 59 L Respiratory 18 13 18 Rate Blood Pressure 172/97 Blood Pressure 140/85 131/79 [Left] O2 Sat by Pulse 100 100 99 Oximetry 07/22/18 07/22/18 07/22/18 05:10 08:00 09:00 Temperature 98 F 98.7 F Pulse Rate 59 L 53 L 57 L Respiratory 18 18 18 Rate Blood Pressure Blood Pressure 122/72 124/75 128/75 [Left] O2 Sat by Pulse 99 99 100 Oximetry - Reevaluation(s) Reevaluation #1: 07/22/18 03:47 Differential diagnosis, including but not limited to: GERD, gastritis, hiatal hernia, stable angina, unstable angina, pulmonary embolism, pneumonia, anxiety Assessment and plan: 52-year-old gentleman with acute on chronic chest pain. The patient had a definitive cardiac risk stratification within the past 4 weeks. Medical therapy has been recommended. He is not tachycardic. He is not hypoxic. His EKG is unchanged from prior. Troponin negative 1. EKG unchanged from prior. X-ray of the chest unremarkable. D-dimer negative. Patient resting comfortable, and in no acute distress. We will repeat EKG and troponin. Assuming that they are not changed, we will instruct the patient to follow-up with an outpatient local tariff compiler. Our local cardiology groups are very amenable to closely seeing patients as an outpatient. Reevaluation #2: 07/22/18 03:54 Patient resting, weak, and he is in no acute distress. I going to reevaluate the patient and discuss his testing results. He states that he is now having a headache. His repeat neurologic examination is unchanged. CT scan of the brain is pending. Repeat EKG, troponin pending. Reevaluation #3: 07/22/18 04:54 Patient is sleeping comfortably in stretcher on multiple re-evaluations. EKG unchanged 3. Reevaluation #4: 07/22/18 05:47 Troponin negative 2. EKG unchanged 3. Patient continues to sleep comfortably in stretcher, and does not appear to be in any acute distress. Patient had a cardiac catheterization last month. Medical management was recommended. Patient medically suitable to follow up with an outpatient primary care doctor or tariff compiler. Care will be transferred to the oncoming ER physician, Dr. Augustin, to follow up on CT scan of the brain, and if negative, discharge the patient to follow-up. 07/22/18 05:48 ED Medical Decision Making - Lab Data Result diagrams: 07/22/18 02:11 07/22/18 02:11 Vital Signs 07/22/18 07/22/18 01:53 02:28 Temperature 98.0 F 98.3 F Pulse Rate 69 70 Respiratory 18 13 Rate Blood Pressure 172/97 Blood Pressure 140/85 [Left] O2 Sat by Pulse 100 100 Oximetry Lab Results 07/22/18 07/22/18 07/22/18 Range/Units 02:11 02:11 02:11 WBC 8.5 (4.5-11.0) K/mm3 RBC 4.57 (3.65-5.03) M/mm3 Hgb 14.2 (11.8-15.2) gm/dl Hct 41.9 (35.5-45.6) % MCV 92 (84-94) fl MCH 31 (28-32) pg MCHC 34 (32-34) % RDW 14.6 (13.2-15.2) % Plt Count 294 (140-440) K/mm3 Lymph % (Auto) 40.5 H (13.4-35.0) % Kimball % (Auto) 8.0 H (0.0-7.3) % Eos % (Auto) 2.4 (0.0-4.3) % Baso % (Auto) 1.6 (0.0-1.8) % Lymph # 3.5 (1.2-5.4) K/mm3 Kimball # 0.7 (0.0-0.8) K/mm3 Eos # 0.2 (0.0-0.4) K/mm3 Baso # 0.1 (0.0-0.1) K/mm3 Seg Neutrophils % 47.5 (40.0-70.0) % Seg Neutrophils # 4.1 (1.8-7.7) K/mm3 PT 13.1 (12.2-14.9) Sec. INR 0.94 (0.87-1.13) APTT 34.0 (24.2-36.6) Sec. D-Dimer (0-234) ng/mlDDU Sodium 136 L (137-145) mmol/L Potassium 4.8 (3.6-5.0) mmol/L Chloride 96.1 L (98-107) mmol/L Carbon Dioxide 27 (22-30) mmol/L Anion Gap 18 mmol/L BUN 27 H (9-20) mg/dL Creatinine 1.5 (0.8-1.5) mg/dL Estimated GFR 60 ml/min BUN/Creatinine Ratio 18 % Glucose 259 H (75-100) mg/dL Calcium 9.5 (8.4-10.2) mg/dL Troponin T < 0.010 (0.00-0.029) ng/mL 07/22/18 Range/Units 02:50 WBC (4.5-11.0) K/mm3 RBC (3.65-5.03) M/mm3 Hgb (11.8-15.2) gm/dl Hct (35.5-45.6) % MCV (84-94) fl MCH (28-32) pg MCHC (32-34) % RDW (13.2-15.2) % Plt Count (140-440) K/mm3 Lymph % (Auto) (13.4-35.0) % Kimball % (Auto) (0.0-7.3) % Eos % (Auto) (0.0-4.3) % Baso % (Auto) (0.0-1.8) % Lymph # (1.2-5.4) K/mm3 Kimball # (0.0-0.8) K/mm3 Eos # (0.0-0.4) K/mm3 Baso # (0.0-0.1) K/mm3 Seg Neutrophils % (40.0-70.0) % Seg Neutrophils # (1.8-7.7) K/mm3 PT (12.2-14.9) Sec. INR (0.87-1.13) APTT (24.2-36.6) Sec. D-Dimer 157.43 (0-234) ng/mlDDU Sodium (137-145) mmol/L Potassium (3.6-5.0) mmol/L Chloride (98-107) mmol/L Carbon Dioxide (22-30) mmol/L Anion Gap mmol/L BUN (9-20) mg/dL Creatinine (0.8-1.5) mg/dL Estimated GFR ml/min BUN/Creatinine Ratio % Glucose (75-100) mg/dL Calcium (8.4-10.2) mg/dL Troponin T (0.00-0.029) ng/mL - EKG Data -: EKG Interpreted by Me EKG shows normal: sinus rhythm Rate: normal - EKG Data When compared to previous EKG there are: no significant change 07/22/18 03:48 EKG #1 shows a normal sinus rhythm, 64 bpm, normal axis, QTC prolonged, poor R wave progression, abnormal EKG, this is not consistent with ST elevation myocardial infarction, it appears to be unchanged from prior EKG from 06/07/2018. Nonspecific T-wave abnormalities noted. Unchanged from prior. - Radiology Data Radiology results: image reviewed interpreted by me: X-ray of the chest negative for acute disease. Left-sided ICD noted. Elevated hemidiaphragm. Poor inspiratory effort. Critical care attestation.: If time is entered above; I have spent that time in minutes in the direct care of this critically ill patient, excluding procedure time. ED Disposition Clinical Impression: Chest pain, Headache Disposition: DC-01 TO HOME OR SELFCARE Is pt being admited?: No Does the pt Need Aspirin: No Condition: Stable Instructions: Chest Pain (ED) Additional Instructions: Continue outpatient medications. Follow up with any of the listed cardiologists within the next 3-5 days. Alternatively, patient may follow-up with his private tariff compiler at the [facility] within the next 3-5 days. Please return to the emergency room right away with new, worsening or different symptoms, or symptoms not present on the initial ER evaluation. Referrals: NITIN FRANCIS MD [Staff Physician] - 3-5 Days DEZ VALLEJO MD [Staff Physician] - 3-5 Days Forms: Accompanied Note, Work/School Release Form(ED)
[2018-07-22] MEDS ORDERED: TYLENOL PO ONE (03:54)
[2018-07-22] MEDS ORDERED: ALUM-MAG HYDROX-SIMETH 200-200-20MG/5ML PO ONE (03:54)
--- NOTE | 2018-07-22 03:57 | XRay Report ---
PROCEDURE: XR CHEST 1V AP TECHNIQUE: Chest radiograph single view. HISTORY: Chest Pain COMPARISONS: June 07, 2018 . FINDINGS: Heart: Normal. Mediastinum/Vessels: Normal. Lungs/Pleural space: Normal. Bony thorax: No acute osseous abnormality. Life support devices: None. Unipolar pacemaker lead is in proper position. IMPRESSION: No acute cardiopulmonary abnormality. This document is electronically signed by Enoch Fang MD., Jul 22 2018 03:55:34 AM ET
--- NOTE | 2018-07-22 08:52 | Cat Scan Report ---
CT scan of head without IV contrast: History: Headache, dizziness. Findings: Ventricles are normal in size and midline in location. No evidence of acute ischemia, hemorrhage or mass. No extra axial fluid collection. Normal brainstem and cerebellum. Impression No acute intracranial abnormality.
[2018-07-22 10:30] VITALS: BP 128/75
== END 2018-07-22 09:25 | disposition home or self-care (01) ==
LOC: ED 01:49
DX: R07.89 Other chest pain (principal); R42 Dizziness and giddiness; R51 Headache; I11.0 Hypertensive heart disease with heart failure; I50.9 Heart failure, unspecified; I25.2 Old myocardial infarction; E11.9 Type 2 diabetes mellitus without complications; K21.9 Gastro-esophageal reflux disease without esophagitis; M19.90 Unspecified osteoarthritis, unspecified site; Z95.1 Presence of aortocoronary bypass graft; Z79.82 Long term (current) use of aspirin; Z88.8 Allergy status to other drugs, medicaments and biological substances
CPT/HCPCS: 36415; 70450; 71045; 80048; 84484; 85025; 85379; 85610; 85730; 93005; 93010; 96374; 96375; 99285; J3010

== ENCOUNTER 2018-12-29 18:43 | Observation (INO) | payer OTHER ==
[2018-12-29] MEDS ORDERED: NITROSTAT SL PRN (19:02)
[2018-12-29] MEDS ORDERED: ZOFRAN IV ONE (19:03)
[2018-12-29] MEDS ORDERED: MORPHINE IV ONE (19:03)
--- NOTE | 2018-12-29 19:37 | XRay Report ---
CHEST 1 VIEW 12/29/2018 7:09 PM INDICATION / CLINICAL INFORMATION: chest PAIN. COMPARISON: 07/22/18 FINDINGS: SUPPORT DEVICES: None. HEART / MEDIASTINUM: Stable. Left-sided single lead AICD is unchanged. LUNGS / PLEURA: No significant pulmonary or pleural abnormality. No pneumothorax. ADDITIONAL FINDINGS: No significant additional findings. IMPRESSION: 1. No acute findings. No change. Signer Name: Meenakshi Valverde MD Signed: 12/29/2018 7:32 PM Workstation Name: [id number]
[2018-12-29 20:04] LABS: Basophils # (Auto) 0.1 K/mm3 (0.0-0.1); Basophils % (Auto) 0.7 % (0.0-1.8); Eosinophils # (Auto) 0.1 K/mm3 (0.0-0.4); Eosinophils % (Auto) 1.6 % (0.0-4.3); Hematocrit 43.1 % (35.5-45.6); Mean Corpuscular HGB Conc 33 % (32-34); Mean Corpuscular Volume 99 fl (84-94); Monocytes # (Auto) 0.8 K/mm3 (0.0-0.8); Platelet Count 147 K/mm3 (140-440); Red Blood Count 4.38 M/mm3 (3.65-5.03); Red Cell Distribution Width 16.3 % (13.2-15.2)
[2018-12-29 20:14] LABS: Alanine Aminotransferase 30 units/L (7-56); Albumin 3.7 g/dL (3.9-5); BUN/Creatinine Ratio 12; Blood Urea Nitrogen 19 mg/dL (9-20); Calcium 9.2 mg/dL (8.4-10.2); Hemolysis Index 56
[2018-12-29] MEDS ORDERED: PEPCID IV ONE (20:16)
--- NOTE | 2018-12-29 21:02 | Emergency Department Report ---
<RODERICK CALLAHAN - Last Filed: 12/29/18 23:04> ED Chest Pain HPI - General Chief Complaint: Chest Pain Stated Complaint: CHEST PAIN Source: patient, EMS Mode of arrival: Stretcher Limitations: No Limitations - History of Present Illness Initial Comments: Patient is a 53-year-old -[place] male with a history of cardiomyopathy status post ICD pacemaker placement, PE, coronary artery disease status post 2 GA, hypertension, hyperlipidemia and zgk-glrozjx-pswoxqwue diabetes who presents to the ED with complaint of acute onset persistent severe constant chest pain for 12 hours. Patient states that the pain is constant, pressure like and tightness. Patient also complains of nausea. Patient states that the chest pain is constant and does not get worse with any physical activity or at rest. Patient states that his primary care physician is at the [facility] on that 3 days ago he had a negative cardiac stress test in [facility]. Patient about 4 hours ago while at home he felt his ICD pacemaker shock him in the chest and he decided to come to the ED for evaluation. Patient denies dizziness, fever, chills, headache, numbness and tingling of upper and lower extremities bilaterally, diaphoresis, abdominal pain, change in vision, syncope, seizures or neck pain and back pain. MD Complaint: chest pain, other (shortness of breath) -: Sudden, hour(s) (12), This morning Onset: awoke with symptoms Pain Location: substernal Pain Radiation: none Severity: severe Severity scale (0 -10): 8 Quality: tightness, aching, sharp, similar to prior GA Consistency: constant Improves With: nothing Worsens With: nothing re: nausea, dyspnea Other Symptoms: denies: cough, fever, syncope, acid taste in mouth, leg swelling, palpitations, burping Treatments Prior to Arrival: aspirin, nitroglycerin Aspirin use within the Past 7 Days: (1) Yes - Related Data On Oral Contraceptives: No Home Medications Medication Instructions Recorded Confirmed Last Taken Amlodipine Besylate [Norvasc] 10 mg PO DAILY 06/07/18 06/07/18 06/06/18 Apixaban [Eliquis] 5 mg PO DAILY 06/07/18 06/07/18 06/06/18 Aspirin EC [Aspirin Enteric Coated 81 mg PO QDAY 03/22/19 03/22/19 03/21/19 TAB] Atorvastatin Calcium 80 mg PO DAILY 06/07/18 06/07/18 06/06/18 Chlorthalidone 50 mg PO DAILY 06/07/18 06/07/18 06/06/18 Colchicine 0.6 mg PO DAILY 06/07/18 06/07/18 06/06/18 cloNIDine [Catapres] 0.1 mg PO DAILY 06/07/18 06/07/18 06/06/18 Previous Rx's Medication Instructions Recorded Last Taken Type Magnesium Oxide 400 mg PO QDAY #14 tablet 06/07/18 Unknown Rx Metoprolol [Lopressor TAB] 150 mg PO BID #60 tablet 06/07/18 Unknown Rx Allergies Allergy/AdvReac Type Severity Reaction Status Date / Time heparin Allergy Mild Hives Verified 04/05/18 12:50 metformin Allergy Mild Hives Verified 04/05/18 12:50 Heart Score - HEART Score History: Moderately suspicious EKG: Non-specific Age: 45-65 Risk factors: > 3 risk factors or hx of atherosclerotic disease Troponin: < normal limit HEART Score: 5 ED Review of Systems Constitutional: denies: chills, fever Eyes: denies: eye pain, eye discharge, vision change ENT: denies: ear pain, throat pain Respiratory: shortness of breath. denies: cough, wheezing Cardiovascular: chest pain. denies: palpitations, dyspnea on exertion, edema, syncope, paroxysmal nocturnal dyspnea Endocrine: no symptoms reported Gastrointestinal: nausea. denies: abdominal pain, vomiting, diarrhea Genitourinary: denies: urgency, dysuria Musculoskeletal: denies: back pain, joint swelling, arthralgia Skin: denies: rash, lesions Neurological: denies: headache, weakness, paresthesias Psychiatric: denies: anxiety, depression Hematological/Lymphatic: denies: easy bleeding, easy bruising ED Past Medical Hx - Past Medical History Previous Medical History?: Yes Hx Hypertension: Yes Hx Heart Attack/AMI: Yes (x2) Hx Congestive Heart Failure: Yes Hx Diabetes: Yes Hx Pulmonary Embolism: Yes Hx GERD: Yes Hx Sickle Cell Disease: No Hx Arthritis: Yes (GOUT) Hx Asthma: No Hx COPD: No Hx HIV: No Additional medical history: HYPERTROPHIC CARDIOMYOPATHY. TIA - Surgical History Past Surgical History?: Yes Hx Coronary Stent: Yes Hx Open Heart Surgery: Yes (DEFIBRILLATOR) Hx Internal Defibrillator: Yes Additional Surgical History: LEFT ELBOW. DOUBLE HERNIA REPAIR. LEFT AND RIGHT MENISCUS - Social History Smoking Status: Never Smoker Substance Use Type: None - Medications Home Medications: Home Medications Medication Instructions Recorded Confirmed Last Taken Type Amlodipine Besylate [Norvasc] 10 mg PO DAILY 06/07/18 06/07/18 06/06/18 History Apixaban [Eliquis] 5 mg PO DAILY 06/07/18 06/07/18 06/06/18 History Aspirin EC [Aspirin Enteric Coated 81 mg PO QDAY 06/07/18 06/07/18 06/06/18 History TAB] Atorvastatin Calcium 80 mg PO DAILY 06/07/18 06/07/18 06/06/18 History Chlorthalidone 50 mg PO DAILY 06/07/18 06/07/18 06/06/18 History Colchicine 0.6 mg PO DAILY 06/07/18 06/07/18 06/06/18 History Magnesium Oxide 400 mg PO QDAY #14 tablet 06/07/18 Unknown Rx Metoprolol [Lopressor TAB] 150 mg PO BID #60 tablet 06/07/18 Unknown Rx cloNIDine [Catapres] 0.1 mg PO DAILY 06/07/18 06/07/18 06/06/18 History ED Physical Exam - General Limitations: No Limitations General appearance: alert, in no apparent distress - Head Head exam: Present: atraumatic, normocephalic, normal inspection - Eye Eye exam: Present: normal appearance, PERRL, EOMI Pupils: Present: normal accommodation - ENT ENT exam: Present: normal exam, normal orophraynx, mucous membranes moist, TM's normal bilaterally, normal external ear exam - Neck Neck exam: Present: normal inspection, full ROM - Respiratory Respiratory exam: Present: normal lung sounds bilaterally. Absent: respiratory distress, wheezes, rales, chest wall tenderness, accessory muscle use - Cardiovascular Cardiovascular Exam: Present: regular rate, normal rhythm, normal heart sounds. Absent: systolic murmur, diastolic murmur, rubs, gallop - GI/Abdominal GI/Abdominal exam: Present: soft, normal bowel sounds. Absent: tenderness, hyperactive bowel sounds - Rectal Rectal exam: Present: deferred - Extremities Exam Extremities exam: Present: normal inspection, full ROM, normal capillary refill - Back Exam Back exam: Present: normal inspection, full ROM - Neurological Exam Neurological exam: Present: alert, oriented X3, CN II-XII intact, normal gait, r eflexes normal - Psychiatric Psychiatric exam: Present: normal affect, normal mood - Skin Skin exam: Present: warm, dry, intact, normal color. Absent: rash ED Course - Reevaluation(s) Reevaluation #1: 12/29/18 21:06 This is a 53-year-old male with a significant cardiac history including GA, cardiomyopathy with ICD pacemaker placement, hypertension, PE, otq-qfiwbaa-epwjdifye diabetes and hyperlipidemia who presented to the ED with constant substernal chest pain or shortness of breath for 12 hours, and stated that his pacemaker shocked him in the chest 4 hours prior to arrival in the ED. In the ED, patient is alert and oriented 3 and is not in distress with stable vital signs. Labs were drawn including d-dimer, chest x-ray. Initial lab test results are nonactionable except d-dimer level of 745.51. Chest x-ray shows no acute cardiopulmonary abnormalities or pneumonitis, with left-sided single lead AICD in place. Patient was treated in the ED with aspirin, nitroglycerin, Zofran and morphine. AICD pacemaker was also interrogated in the ED and showed no recent activity including shock. Chest CTA for PE rule out showed no activity or any acute abnormal findings. Patient's case was discussed with the ED attending physician who also evaluated the patient and advised that the patient be admitted to the hospital based on his Heart score of 5, and the SCOT score of 4. On reevaluation, patient is currently resting comfortably. The hospitalist physician installation technician Dr. Meadows was paged and discussed the patient's case with her. Dr. Meadows admitted the patient to the hospital for further evaluation. 12/29/18 23:06 12/29/18 23:08 SCOT score - Scot Score Age > 65: (0) No Aspirin use within the Past 7 Days: (1) Yes 3 or more CAD Risk Factors: (1) Yes 2 or more Angina events in past 24 hrs: (1) Yes Known CAD with more than 50% Stenosis: (0) No Elevated Cardiac Markers: (0) No ST Deviation Greater than 0.5mm: (1) Yes SCOT Score: 4 ED Medical Decision Making - Lab Data Result diagrams: 12/29/18 19:23 12/29/18 19:23 - Radiology Data Radiology results: report reviewed, image reviewed Findings [facility] [address] [place] [address] Cat Scan Report Signed Patient: VINNIE STRE[address] MR#: [id number] : 1965 Acct:[id number] Age/Sex: 53 / M ADM Date: 12/29/18 Loc: ED Attending Dr: Ordering Physician: TONIO ESPOSITO MD Date of Service: 12/29/18 Procedure(s): CT angio chest Accession Number(s): [id number] cc: TONIO ESPOSITO MD CT angio chest INDICATION / CLINICAL INFORMATION: cp + d dimer, hx pe x 2, defibrillator went off. TECHNIQUE: Precontrast bolus timing images were obtained followed by postcontrast axial and reformatted images. 3-plane MIP reconstructions were performed at an independent workstation by the technologist. All CT scans at this location are performed using CT dose reduction for ALARA by means of automated exposure control. COMPARISON: None available. FINDINGS: Pulmonary arterial enhancement is normal. No evidence of pulmonary embolus. No acute lung disease. Incidentally noted is a 4 mm nodular density in the left lower lobe, considered a benign finding. There is normal thoracic aortic enhancement. No cardiac enlargement or pericardial effusion. No mediastinal adenopathy. Limited upper abdominal images are negative. Degenerative changes are seen in the thoracic spine.. IMPRESSION: 1. No evidence of pulmonary embolus or acute disease. Signer Name: Mark Freeman MD Signed: 12/29/2018 10:55 PM Workstation Name: [id number] Transcribed By: ADALBERTO Dictated By: Mark Freeman MD Electronically Authenticated By: Mark Freeman MD Signed Date/Time: 12/29/182254 DD/ 51 TD/TT: -------- Findings [facility] [address] [place] [address] XRay Report Signed Patient: VINNIE [address] MR#: [id number] : 1965 Acct:[id number] Age/Sex: 53 / M ADM Date: 12/29/18 Loc: ED Attending Dr: Ordering Physician: VIRGIE ROMERO Date of Service: 12/29/18 Procedure(s): XR chest 1V ap Accession Number(s): [id number] cc: VIRGIE ROMERO Fluoro Time In Minutes: CHEST 1 VIEW 12/29/2018 7:09 PM INDICATION / CLINICAL INFORMATION: chest PAIN. COMPARISON: 07/22/18 FINDINGS: SUPPORT DEVICES: None. HEART / MEDIASTINUM: Stable. Left-sided single lead AICD is unchanged. LUNGS / PLEURA: No significant pulmonary or pleural abnormality. No pneumothorax. ADDITIONAL FINDINGS: No significant additional findings. IMPRESSION: 1. No acute findings. No change. Signer Name: Meenakshi Valverde MD Signed: 12/29/2018 7:32 PM Workstation Name: [id number] Transcribed By: DT Dictated By: Roderick Valverde MD Electronically Authenticated By: Roderick Valverde MD Signed Date/Time: 12/29/181931 DD/ 29 TD/TT: - Medical Decision Making This is a 53-year-old male with a significant cardiac history including GA, cardiomyopathy with ICD pacemaker placement, hypertension, PE, qdz-lrquthb-vlyhmwskx diabetes and hyperlipidemia who presented to the ED with constant substernal chest pain or shortness of breath for 12 hours, and stated that his pacemaker shocked him in the chest 4 hours prior to arrival in the ED. In the ED, patient is alert and oriented 3 and is not in distress with stable vital signs. Labs were drawn including d-dimer, chest x-ray. Initial lab test results are nonactionable except d-dimer level of 745.51. Chest x-ray shows no acute cardiopulmonary abnormalities or pneumonitis, with left-sided single lead AICD in place. Patient was treated in the ED with aspirin, nitroglycerin, Zofran and morphine. AICD pacemaker was also interrogated in the ED and showed no recent activity including shock. Chest CTA for PE rule out showed no activity or any acute abnormal findings. Patient's case was discussed with the ED attending physician who also evaluated the patient and advised that the patient be admitted to the hospital based on his Heart score of 5, and the SCOT score of 4. On reevaluation, patient is currently resting comfortably. The hospitalist physician installation technician Dr. Meadows was paged and discussed the patient's case with her. Dr. Meadows admitted the patient to the hospital for further evaluation. - Differential Diagnosis ACS; PE; Pneumonia; CHF; Critical Care Time: Yes (35) ED Disposition Clinical Impression: Chest pain, History of pulmonary embolism, ICD (implantable cardioverter- defibrillator) discharge Disposition: OP ADMIT IP TO THIS HOSP Is pt being admited?: Yes Does the pt Need Aspirin: Yes Condition: Stable Instructions: Chest Pain (ED) Referrals: BEBETO MONTANEZ MD [Primary Care Provider] - 3-5 Days Time of Disposition: 23:11 Print Language: KISWAHILI <TONIO ESPOSITO - Last Filed: 12/29/18 23:33> ED Review of Systems ROS: Stated complaint: CHEST PAIN Other details as noted in HPI ED Course Vital Signs 12/29/18 12/29/18 12/29/18 18:45 19:19 19:30 Temperature 98.8 F Pulse Rate 65 62 76 Respiratory 16 13 13 Rate Blood Pressure 154/90 158/92 O2 Sat by Pulse 98 97 94 Oximetry 12/29/18 12/29/18 12/29/18 19:45 20:01 20:15 Temperature Pulse Rate 74 69 60 Respiratory 22 16 14 Rate Blood Pressure 141/78 136/82 132/73 O2 Sat by Pulse 94 94 94 Oximetry 12/29/18 12/29/18 12/29/18 20:30 20:45 21:00 Temperature Pulse Rate 70 73 71 Respiratory 14 21 13 Rate Blood Pressure 135/88 134/73 138/80 O2 Sat by Pulse 95 91 95 Oximetry 12/29/18 12/29/18 12/29/18 21:15 21:31 21:45 Temperature Pulse Rate 59 L 79 78 Respiratory 10 L 16 15 Rate Blood Pressure 138/80 143/92 131/92 O2 Sat by Pulse 98 95 96 Oximetry 12/29/18 12/29/18 12/29/18 22:01 22:15 22:31 Temperature Pulse Rate 75 Respiratory 14 Rate Blood Pressure 143/104 131/92 140/39 O2 Sat by Pulse 97 97 97 Oximetry ED Medical Decision Making - Lab Data Result diagrams: 12/29/18 19:23 12/29/18 19:23 Critical care attestation.: If time is entered above; I have spent that time in minutes in the direct care of this critically ill patient, excluding procedure time. ED Disposition Is pt being admited?: Yes Does the pt Need Aspirin: Yes
[2018-12-29 21:06] LABS: Partial Thromboplastin Time 40.5 Sec. (24.2-36.6)
--- NOTE | 2018-12-29 21:13 | Event Note ---
Date of service: 12/29/18 Face to Face: This is a 53-year-old gentleman, history of defibrillator, reports history of cardiomyopathy, [facility], presenting to the ER with complaint of central chest pain, sensation of deferrable later activation. He is taking systemic anticoagulation, eliquis, he reported compliance with this. He reportedly has a history of pulmonary embolism 2, and heart disease. He said he may have some shortness of breath. He reports a recent road trip to [place]. He has a [employer] device which was interrogated by one of their representatives, and this did not demonstrate any arrhythmias. Laboratory studies ordered, including d-dimer, patient's pain will be treated. Patient at moderate risk for major adverse cardiac event as per the heart score. If initial diagnostics unremarkable, would strongly consider admission for inpatient cardiology evaluation and expedited cardiac risk stratification. Vital Signs 12/29/18 12/29/18 12/29/18 18:45 19:19 19:30 Temperature 98.8 F Pulse Rate 65 62 76 Respiratory 16 13 13 Rate Blood Pressure 154/90 158/92 O2 Sat by Pulse 98 97 94 Oximetry Lab Results 12/29/18 12/29/18 12/29/18 Range/Units 19:23 19:23 19:23 WBC 8.4 (4.5-11.0) K/mm3 RBC 4.38 (3.65-5.03) M/mm3 Hgb 14.0 (11.8-15.2) gm/dl Hct 43.1 (35.5-45.6) % MCV 99 H (84-94) fl MCH 32 (28-32) pg MCHC 33 (32-34) % RDW 16.3 H (13.2-15.2) % Plt Count 147 (140-440) K/mm3 Lymph % (Auto) 35.0 (13.4-35.0) % [place] % (Auto) 9.0 H (0.0-7.3) % Eos % (Auto) 1.6 (0.0-4.3) % Baso % (Auto) 0.7 (0.0-1.8) % Lymph # 3.0 (1.2-5.4) K/mm3 [place] # 0.8 (0.0-0.8) K/mm3 Eos # 0.1 (0.0-0.4) K/mm3 Baso # 0.1 (0.0-0.1) K/mm3 Seg Neutrophils % 53.7 (40.0-70.0) % Seg Neutrophils # 4.5 (1.8-7.7) K/mm3 APTT 40.5 H (24.2-36.6) Sec. Sodium 139 (137-145) mmol/L Potassium 4.3 (3.6-5.0) mmol/L Chloride 101.8 (98-107) mmol/L Carbon Dioxide 20 L (22-30) mmol/L Anion Gap 22 mmol/L BUN 19 (9-20) mg/dL Creatinine 1.6 H (0.8-1.5) mg/dL Estimated GFR 55 ml/min BUN/Creatinine Ratio 12 % Glucose 116 H (75-100) mg/dL Calcium 9.2 (8.4-10.2) mg/dL Total Bilirubin 0.50 (0.1-1.2) mg/dL AST 26 (5-40) units/L ALT 30 (7-56) units/L Alkaline Phosphatase 86 (35-129) units/L Troponin T < 0.010 (0.00-0.029) ng/mL NT-Pro-B Natriuret Pep 167.4 (0-900) pg/mL Total Protein 7.3 (6.3-8.2) g/dL Albumin 3.7 L (3.9-5) g/dL Albumin/Globulin Ratio 1.0 %
--- NOTE | 2018-12-29 23:00 | Cat Scan Report ---
CT angio chest INDICATION / CLINICAL INFORMATION: cp + d dimer, hx pe x 2, defibrillator went off. TECHNIQUE: Precontrast bolus timing images were obtained followed by postcontrast axial and reformatted images. 3-plane MIP reconstructions were performed at an independent workstation by the technologist. All CT scans at this location are performed using CT dose reduction for ALARA by means of automated exposure control. COMPARISON: None available. FINDINGS: Pulmonary arterial enhancement is normal. No evidence of pulmonary embolus. No acute lung disease. Incidentally noted is a 4 mm nodular density in the left lower lobe, considered a benign finding. There is normal thoracic aortic enhancement. No cardiac enlargement or pericardial effusion. No mediastinal adenopathy. Limited upper abdominal images are negative. Degenerative changes are seen in the thoracic spine.. IMPRESSION: 1. No evidence of pulmonary embolus or acute disease. Signer Name: Mark Freeman MD Signed: 12/29/2018 10:55 PM Workstation Name: [id number]
[2018-12-29] MEDS ORDERED: DILAUDID IV PRN (23:18)
[2018-12-29] MEDS ORDERED: PROVENTIL IH PRN (23:18)
[2018-12-29] MEDS ORDERED: ZOFRAN IV PRN (23:18)
[2018-12-29] MEDS ORDERED: SODIUM CHLORIDE FLUSH SYRINGE 10 ML IV PRN (23:18)
[2018-12-29] MEDS ORDERED: D50W (25GM) Syringe IV PRN (23:31)
[2018-12-29] MEDS ORDERED: BABY ASPIRIN PO ONE (23:32)
--- NOTE | 2018-12-29 23:55 | History and Physical Report ---
<AMELIA LOPEZ - Last Filed: 12/30/18 04:35> History of Present Illness Date of examination: 12/29/18 Date of admission: 12/29/2018 Chief complaint: Chest pain History of present illness: 53-year-old -Marshallese male with history of a A. fib/atrial flutter, CAD s/p PCI, NV 2, AICD, unprovoked PE 2, GI bleed, CKD, hypertension, insulin- dependent diabetes and EtOH abuse who presents [facility] with complaints of chest pain for the past day. Patient states that on Sunday morning approximately 5 AM he felt a sharp stinging pain under his left nipple. He states that the pain felt similar to the pain he felt, when his AICD discharged earlier this year. Pain was constant, changed in nature to chest tightness/pressure and lasted for approximately 12 hours. He rates the pain 8/10. The patient was also accompanied by nausea. He denies emesis and diaphoresis. Per patient he had stress test done at [facility] on 12/26/18, and the results were normal. Patient had an Echo done in July of this year at the [facility]; however, he does not recall the results. Patient also states that he is sche duled to undergo GI procedure sometime this week at the [facility]. Denies: Headache, emesis, diaphoresis, fever, chills, cough, or hemoptysis Past History Past Medical History: acute NV (2 (01/2002, 05/2014)), atrial fib, arthritis (gout), CAD (stent 2), diabetes, GERD, hypertension, hyperlipidemia, pulmonary embolism (unprovoked 2 (09/2015, 12/2015) on Eliquis), renal failure, other (GI bleed him a EtOH abuse last drink May 2018, atrophic cardiomyopathy, TIA ) Past Surgical History: hernia repair, Other (left elbow, left and right meniscus, stent 2, AICD ) Social history: lives with family. denies: smoking, alcohol abuse Family history: no significant family history Medications and Allergies Allergies Allergy/AdvReac Type Severity Reaction Status Date / Time heparin Allergy Mild Hives Verified 04/05/18 12:50 metformin Allergy Mild Hives Verified 04/05/18 12:50 Home Medications Medication Instructions Recorded Confirmed Last Taken Type Apixaban [Eliquis] 5 mg PO BID 06/07/18 12/29/18 06/06/18 History Aspirin EC [Aspirin Enteric Coated 81 mg PO QDAY 06/07/18 12/29/18 06/06/18 History TAB] Atorvastatin Calcium 80 mg PO DAILY 06/07/18 12/29/18 06/06/18 History Colchicine 0.6 mg PO BID 06/07/18 12/29/18 06/06/18 History Albuterol Sulfate [Proair 2 puff IH Q4HR PRN 12/29/18 12/30/18 Unknown History Respiclick] Allopurinol [Zyloprim] 300 mg PO QDAY 12/29/18 12/29/18 Unknown History Famotidine [Pepcid] 20 mg PO DAILY 12/29/18 12/29/18 Unknown History Insulin Aspart [NovoLOG Flexpen] 16 units SQ ACHS 12/29/18 12/29/18 Unknown History Insulin Glargine,Hum.rec.anlog 42 unit SQ QHS 12/29/18 12/30/18 Unknown History [Lantus Solostar] Lisinopril [Zestril TAB] 40 mg PO QDAY 12/29/18 12/29/18 Unknown History Metoprolol [Lopressor] 100 mg PO BID 12/29/18 12/29/18 Unknown History hydroCHLOROthiazide [HCTZ] 25 mg PO QDAY 12/29/18 12/29/18 Unknown History Active Meds: Active Medications Acetaminophen (Tylenol) 650 mg PO Q4H PRN PRN Reason: Pain MILD(1-3)/Fever >100.5/RAMÍREZ Albuterol (Proventil) 2.5 mg IH Q3HRT PRN PRN Reason: Shortness Of Breath Dextrose (D50w (25gm) Syringe) 50 ml IV PRN PRN PRN Reason: Hypoglycemia Hydromorphone HCl (Dilaudid) 0.5 mg IV Q3H PRN PRN Reason: Pain , Severe (7-10) Insulin Human Lispro (Humalog) 0 unit SUB-Q Q6HR BRITTANI; Protocol Morphine Sulfate (Morphine) 2 mg IV Q4H PRN PRN Reason: Pain, Moderate (4-6) Nitroglycerin (Nitrostat) 0.4 mg SL .Q5MIN PRN PRN Reason: Chest Pain Ondansetron HCl (Zofran) 4 mg IV Q6H PRN PRN Reason: Nausea And Vomiting Sodium Chloride (Sodium Chloride Flush Syringe 10 Ml) 10 ml IV BID BRITTANI Sodium Chloride (Sodium Chloride Flush Syringe 10 Ml) 10 ml IV PRN PRN PRN Reason: LINE FLUSH Review of Systems All systems: negative Cardiovascular: chest pain Gastrointestinal: nausea Exam - Physical Exam Narrative exam: General appearance: Present: No acute distress, alert and oriented 3, pleasant, well-developed, adult male - EENT Eyes: Present: PERRL, EOM intact ENT: hearing intact, missing teeth - Neck Neck: Present: supple, normal ROM - Respiratory Respiratory effort: Non-labored Respiratory: bilateral: CTA with diminished bases bilaterally - Cardiovascular Heart rate:61 (bpm) Rhythm:SR, abnormal T-wave, Heart Sounds: Present: S1, S2. - Extremities Extremities: no ischemia, pulses intact - Peripheral Assessment Peripheral Pulses: within normal limits - Abdominal General gastrointestinal: soft, non-tender, normal bowel sounds - Integumentary Integumentary: Present: warm, dry - Musculoskeletal Musculoskeletal: able to move all extremities -Neurological Neurological: CN II-XII grossly intact - Psychiatric Psychiatric: cooperative - Constitutional Vitals: Temp Pulse Resp BP Pulse Ox 98.8 F 75 14 140/39 97 12/29/18 18:45 12/29/18 22:31 12/29/18 22:31 12/29/18 22:31 12/29/18 22:31 Results - Labs CBC & Chem 7: 12/29/18 19:23 12/29/18 19:23 Labs: Laboratory Last Values WBC 8.4 K/mm3 (4.5-11.0) 12/29/18 19:23 RBC 4.38 M/mm3 (3.65-5.03) 12/29/18 19:23 Hgb 14.0 gm/dl (11.8-15.2) 12/29/18 19:23 Hct 43.1 % (35.5-45.6) 12/29/18 19:23 MCV 99 fl (84-94) H 12/29/18 19:23 MCH 32 pg (28-32) 12/29/18 19:23 MCHC 33 % (32-34) 12/29/18 19:23 RDW 16.3 % (13.2-15.2) H 12/29/18 19:23 Plt Count 147 K/mm3 (140-440) 12/29/18 19: Lymph % (Auto) 35.0 % (13.4-35.0) 12/29/18 19: [place] % (Auto) 9.0 % (0.0-7.3) H 12/29/18 19: Eos % (Auto) 1.6 % (0.0-4.3) 12/29/18 19: Baso % (Auto) 0.7 % (0.0-1.8) 12/29/18 19: Lymph # 3.0 K/mm3 (1.2-5.4) 12/29/18: [place] # 0.8 K/mm3 (0.0-0.8) 12/29/18 19: Eos # 0.1 K/mm3 (0.0-0.4) 12/29/18 19: Baso # 0.1 K/mm3 (0.0-0.1) 12/29/18 19: Seg Neutrophils % 53.7 % (40.0-70.0) 12/29/18 19: Seg Neutrophils # 4.5 K/mm3 (1.8-7.7) 12/29/18 19: PT Not Reportable 12/29/18 19: INR Not Reportable 12/29/18 19:23 APTT 40.5 Sec. (24.2-36.6) H 12/29/18 19:23 D-Dimer 745.51 ng/mlDDU (0-234) H 12/29/18 19:23 Sodium 139 mmol/L (137-145) 12/29/18 19:23 Potassium 4.3 mmol/L (3.6-5.0) 12/29/18 19: Chloride 101.8 mmol/L (98-107) 12/29/18 19: Carbon Dioxide 20 mmol/L (22-30) L 12/29/18 19:23 Anion Gap 22 mmol/L 12/29/18 19:23 BUN 19 mg/dL (9-20) 12/29/18 19:23 Creatinine 1.6 mg/dL (0.8-1.5) H 12/29/18 19:23 Estimated GFR 55 ml/min 12/29/18 19:23 BUN/Creatinine Ratio 12 % 12/29/18 19:23 Glucose 116 mg/dL (75-100) H 12/29/18 19:23 POC Glucose 110 (70-105) H 12/29/18 21:35 Calcium 9.2 mg/dL (8.4-10.2) 12/29/18 19: Magnesium 1.70 mg/dL (1.7-2.3) 12/29/18 19:23 Total Bilirubin 0.50 mg/dL (0.1-1.2) 12/29/18 19:23 AST 26 units/L (5-40) 12/29/18 19:23 ALT 30 units/L (7-56) 12/29/18 19:23 Alkaline Phosphatase 86 units/L (35-129) 12/29/18 19:23 Total Creatine Kinase 231 units/L (55-170) H 12/29/18 19:23 Troponin T < 0.010 ng/mL (0.00-0.029) 12/29/18 19:23 NT-Pro-B Natriuret Pep 167.4 pg/mL (0-900) 12/29/18 19:23 Total Protein 7.3 g/dL (6.3-8.2) 12/29/18 19:23 Albumin 3.7 g/dL (3.9-5) L 12/29/18 19:23 Albumin/Globulin Ratio 1.0 % 12/29/18 19:23 - Imaging and Cardiology Imaging and Cardiology: CT angio Chest: FINDINGS: Pulmonary arterial enhancement is normal. No evidence of pulmonary embolus. No acute lung disease. Incidentally noted is a 4 mm nodular density in the left lower lobe, considered a benign finding. There is normal thoracic aortic enhancement. No cardiac enlargement or pericardial effusion. No mediastinal adenopathy. Limited upper abdominal images are negative. Degenerative changes are seen in the thoracic spine.. IMPRESSION: 1. No evidence of pulmonary embolus or acute disease. CXR: FINDINGS: SUPPORT DEVICES: None. HEART / MEDIASTINUM: Stable. Left-sided single lead AICD is unchanged. LUNGS / PLEURA: No significant pulmonary or pleural abnormality. No pneumothorax. ADDITIONAL FINDINGS: No significant additional findings. IMPRESSION: 1. No acute findings. No change. Assessment and Plan Assessment and plan: 53-year-old -Marshallese male with history of a A. fib/atrial flutter, CAD s/p PCI, NV 2, AICD, unprovoked PE 2, GI bleed, CKD, hypertension, insulin- dependent diabetes and EtOH abuse who presents [facility] with complaints of chest pain for the past day. She thought that his AICD had discharge. AICD was interrogated at bedside and it was not found to have discharged. Patient still insists that the AICD discharge earlier today. Will admit to telemetry for further evaluation. Acute Chest Pain R/O ACS -CX negative -EKG unrevealing for acute ischemic abnormalities -History of NV 2 -Status post stent -AICD in situ -Initiate chest pain protocol -Continuous telemetry monitoring -Continue supportive care -Pain mgmt -Troponin negative x 1, will continue to trend -On ASA and Statin -AICD interrogated at that side, negative for discharge -Will defer additional cardiac workup per cardiology recommendations -Cardiology consulted History of A. fib -Rate controlled; currently sinus rhythm -Anticoagulated on Eliquis -Hold Eliquis pt has upcoming GI procedure at [facility] and needs to be off anticoagulation CHF -EF 45-50% seen on Echo (12/2016) -Continue heart failure meds HTN -Monitor BP -Resume home antihypertensive meds -IV hydralazine when necessary Insulin-dependent diabetes -POC BG monitoring -SSI coverage and scheduled Lantus Elevated d-dimer -On admission 745 -CT negative for PE CKD 3 -Creatinine on admission 1.6 -Avoid nephrotoxin agents -Renal dose all meds -Continue to monitor Hx PE -Unprovoked x2 (09/2015, 12/2015) -Previously on Coumadin and Xarelto -Currently on Eliquis Hx GI bleed DVT PPX -on SCD's -Hold Eliquis pt has upcoming GI procedure at [facility] and needs to be off anticoagulation Advance Directives: No VTE prophylaxis?: Mechanical Plan of care discussed with patient/family: Yes <ROSALIA BRANCH - Last Filed: 12/30/18 06:33> History of Present Illness Date of admission: 12/29/18 23:19 Medications and Allergies Active Meds: Active Medications Acetaminophen (Tylenol) 650 mg PO Q4H PRN PRN Reason: Pain MILD(1-3)/Fever >100.5/RAMÍREZ Albuterol (Proventil) 2.5 mg IH Q3HRT PRN PRN Reason: Shortness Of Breath Allopurinol (Zyloprim) 300 mg PO QDAY [facility] Aspirin (Halfprin Ec) 81 mg PO QDAY [facility] Atorvastatin Calcium (Lipitor) 80 mg PO DAILY [facility] Colchicine (Colchicine) 0.6 mg PO BID [facility] Dextrose (D50w (25gm) Syringe) 50 ml IV PRN PRN PRN Reason: Hypoglycemia Famotidine (Pepcid) 20 mg PO DAILY [facility] Hydrochlorothiazide (Hctz) 25 mg PO QDAY [facility] Hydromorphone HCl (Dilaudid) 0.5 mg IV Q3H PRN PRN Reason: Pain , Severe (7-10) Insulin Glargine (Lantus) 42 units SUB-Q QHS [facility] Insulin Human Lispro (Humalog) 0 unit SUB-Q Q6HR [facility]; Protocol Last Admin: 12/30/18 00:04 Dose: Not Given Documented by: Lisinopril (Zestril) 40 mg PO QDAY [facility] Metoprolol Tartrate (Lopressor) 100 mg PO BID [facility] Morphine Sulfate (Morphine) 2 mg IV Q4H PRN PRN Reason: Pain, Moderate (4-6) Nitroglycerin (Nitrostat) 0.4 mg SL .Q5MIN PRN PRN Reason: Chest Pain Ondansetron HCl (Zofran) 4 mg IV Q6H PRN PRN Reason: Nausea And Vomiting Sodium Chloride (Sodium Chloride Flush Syringe 10 Ml) 10 ml IV BID [facility] Sodium Chloride (Sodium Chloride Flush Syringe 10 Ml) 10 ml IV PRN PRN PRN Reason: LINE FLUSH Exam - Constitutional Vitals: Temp Pulse Resp BP Pulse Ox 98.0 F 52 L 18 137/83 95 12/30/18 03:24 12/30/18 04:29 12/30/18 03:24 12/30/18 03:24 12/30/18 03:24 Results - Labs CBC & Chem 7: 12/30/18 05:15 12/30/18 05:15 Labs: Laboratory Last Values WBC 7.9 K/mm3 (4.5-11.0) 12/30/18 05:15 RBC 4.13 M/mm3 (3.65-5.03) 12/30/18 05:15 Hgb 12.8 gm/dl (11.8-15.2) 12/30/18 05:15 Hct 39.1 % (35.5-45.6) 12/30/18 05:15 MCV 95 fl (84-94) H 12/30/18 05:15 MCH 31 pg (28-32) 12/30/18 05:15 MCHC 33 % (32-34) 12/30/18 05:15 RDW 16.3 % (13.2-15.2) H 12/30/18 05:15 Plt Count 219 K/mm3 (140-440) 12/30/18 05:15 Lymph % (Auto) 36.2 % (13.4-35.0) H 12/30/18 05:15 [place] % (Auto) 10.0 % (0.0-7.3) H 12/30/18 05:15 Eos % (Auto) 2.3 % (0.0-4.3) 12/30/18 05:15 Baso % (Auto) 0.6 % (0.0-1.8) 12/30/18 05:15 Lymph # 2.9 K/mm3 (1.2-5.4) 12/30/18 05:15 [place] # 0.8 K/mm3 (0.0-0.8) 12/30/18 05:15 Eos # 0.2 K/mm3 (0.0-0.4) 12/30/18 05:15 Baso # 0.1 K/mm3 (0.0-0.1) 12/30/18 05:15 Seg Neutrophils % 50.9 % (40.0-70.0) 12/30/18 05:15 Seg Neutrophils # 4.0 K/mm3 (1.8-7.7) 12/30/18 05:15 PT Not Reportable 12/29/18 19:23 INR Not Reportable 12/29/18 19:23 APTT 40.5 Sec. (24.2-36.6) H 12/29/18 19:23 D-Dimer 745.51 ng/mlDDU (0-234) H 12/29/18 19:23 Sodium 143 mmol/L (137-145) 12/30/18 05:15 Potassium 4.7 mmol/L (3.6-5.0) 12/30/18 05:15 Chloride 102.4 mmol/L (98-107) 12/30/18 05:15 Carbon Dioxide 26 mmol/L (22-30) 12/30/18 05:15 Anion Gap 19 mmol/L 12/30/18 05:15 BUN 18 mg/dL (9-20) 12/30/18 05:15 Creatinine 1.5 mg/dL (0.8-1.5) 12/30/18 05:15 Estimated GFR 60 ml/min 12/30/18 05:15 BUN/Creatinine Ratio 12 % 12/30/18 05:15 Glucose 130 mg/dL (75-100) H 12/30/18 05:15 POC Glucose 110 (70-105) H 12/29/18 21:35 Calcium 9.0 mg/dL (8.4-10.2) 12/30/18 05:15 Magnesium 1.70 mg/dL (1.7-2.3) 12/29/18 19:23 Total Bilirubin 0.50 mg/dL (0.1-1.2) 12/29/18 19:23 AST 26 units/L (5-40) 12/29/18 19:23 ALT 30 units/L (7-56) 12/29/18 19:23 Alkaline Phosphatase 86 units/L (35-129) 12/29/18 19:23 Total Creatine Kinase 231 units/L (55-170) H 12/29/18 19:23 Troponin T < 0.010 ng/mL (0.00-0.029) 12/30/18 05:15 NT-Pro-B Natriuret Pep 167.4 pg/mL (0-900) 12/29/18 19:23 Total Protein 7.3 g/dL (6.3-8.2) 12/29/18 19:23 Albumin 3.7 g/dL (3.9-5) L 12/29/18 19:23 Albumin/Globulin Ratio 1.0 % 12/29/18 19:23 Assessment and Plan Assessment and plan: 53-year-old man history of cardiomyopathy, PE on Eliquis, coronary artery disease, hypertension, diabetes, hyperlipidemia comes emergency room with complaints of left substernal chest pain that started this morning, described as a pressure-like sensation, constant radiating to the left arm and associated with shortness of breath palpitation. He is scheduled for a EGD on , he was told to hold his Eliquis for the next 3 days. Consult cardiology. He thought that his defibrillator fire, internal rotation was negative
[2018-12-30] MEDS: HumaLOG SUB-Q SCH ×5 (00:04→21:50)
[2018-12-30] MEDS ORDERED: BABY ASPIRIN ONE (00:29)
[2018-12-30] MEDS ORDERED: NON-FORMULARY (Albuterol Sulfate [Proair Respiclick] 2 PUFF) IH PRN (04:05)
[2018-12-30 05:43] LABS: Basophils # (Auto) 0.1 K/mm3 (0.0-0.1); Basophils % (Auto) 0.6 % (0.0-1.8); Eosinophils # (Auto) 0.2 K/mm3 (0.0-0.4); Eosinophils % (Auto) 2.3 % (0.0-4.3); Hematocrit 39.1 % (35.5-45.6); Hemoglobin 12.8 gm/dl (11.8-15.2); Lymphocytes # (Auto) 2.9 K/mm3 (1.2-5.4); Lymphocytes % (Auto) 36.2 % (13.4-35.0); Mean Corpuscular HGB Conc 33 % (32-34); Mean Corpuscular Volume 95 fl (84-94); Monocytes # (Auto) 0.8 K/mm3 (0.0-0.8); Platelet Count 219 K/mm3 (140-440); Red Blood Count 4.13 M/mm3 (3.65-5.03); Red Cell Distribution Width 16.3 % (13.2-15.2)
[2018-12-30 06:11] LABS: BUN/Creatinine Ratio 12; Blood Urea Nitrogen 18 mg/dL (9-20); Hemolysis Index 86
[2018-12-30] MEDS: TYLENOL PO PRN ×2 (07:57→17:09)
[2018-12-30] MEDS: ZYLOPRIM PO SCH (09:04)
[2018-12-30] MEDS: ZESTRIL PO SCH (09:04)
[2018-12-30] MEDS: PEPCID PO SCH (09:04)
[2018-12-30] MEDS: HALFPRIN EC PO SCH (09:04)
[2018-12-30] MEDS: SODIUM CHLORIDE FLUSH SYRINGE 10 ML IV SCH ×2 (09:05→21:51)
[2018-12-30] MEDS: HCTZ PO SCH (09:05)
[2018-12-30] MEDS: METOPROLOL PO SCH ×2 (09:05→21:50)
[2018-12-30] MEDS: COLCHICINE PO SCH ×2 (09:05→21:50)
[2018-12-30] MEDS ORDERED: NON-FORMULARY (Atorvastatin Calcium [Atorvastatin Calcium] 80 MG) PO SCH (10:00)
--- NOTE | 2018-12-30 10:52 | Progress Note ---
Assessment and Plan - Chest pain Continue with aspirin, nitroglycerin, beta andrzej and oxygen Serial cardiac enzymes are normal. 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 - T2DM Consistent carbohydrates diet Obtain A1c Lipid level Sliding scale insulin - Hypertension Controlled - History of PE Continue with Eliquis - DVT prophylaxis with Lovenox - Disposition: Per cardiology recommendation Subjective Date of service: 12/30/18 Principal diagnosis: chest pain, T2 DM, hypertrophic cardio myopathy Interval history: Chest pain resolved. Denies any orthopnea or paroxysmal nocturnal dyspnea Objective - Exam Narrative Exam: Constitutional: Well-nourished well-developed. In no distress Head: Normocephalic atraumatic Eyes: Pupils are equal round and reactive to light Nose: No enlarged turbinates, no septal deviation. Mouth: Moist mucous membranes. Neck: Supple no thyromegaly. No bruit. No JVD Heart: Regular rate and rhythm, S1-S2 normal. No rubs murmurs or gallop Lungs: Clear to auscultation bilaterally. no rales or rhonchi Abdomen: Soft, nontender. Bowel sound are present. Extremities: No edema, no cyanosis, no clubbing. Neuro: Alert oriented Oriented x3. No focal sensory or motor deficit. Skin: No rashes or hyperpigmented spots Musculoskeletal system: No joint pain or swelling Hematological: No petechia or subcutanous hemorrhages. Immunological: No multiple septic spots on the skin Lymphatic: No generalized lymphadenopathy Psychiatry: Euthymic. Calm. - Constitutional Vitals: Vital Signs - 12hr 12/29/18 12/29/18 12/29/18 23:00 23:15 23:30 Temperature Pulse Rate 68 69 67 Respiratory 18 15 19 Rate Blood Pressure 131/76 131/76 133/70 O2 Sat by Pulse 96 96 94 Oximetry 12/29/18 12/30/18 12/30/18 23:45 00:00 00:11 Temperature Pulse Rate 66 62 57 L Respiratory 17 19 18 Rate Blood Pressure 130/68 124/75 124/75 O2 Sat by Pulse 96 96 98 Oximetry 12/30/18 12/30/18 12/30/18 00:21 00:30 00:41 Temperature Pulse Rate 56 L 62 71 Respiratory 17 13 16 Rate Blood Pressure 123/78 140/87 140/87 O2 Sat by Pulse 97 95 97 Oximetry 12/30/18 12/30/18 12/30/18 01:00 01:09 01:45 Temperature 98.8 F Pulse Rate 66 59 L Respiratory 20 17 Rate Blood Pressure O2 Sat by Pulse 96 Oximetry 12/30/18 12/30/18 12/30/18 03:24 04:29 08:56 Temperature 98.0 F Pulse Rate 65 52 L Respiratory 18 Rate Blood Pressure 137/83 O2 Sat by Pulse 95 94 Oximetry 12/30/18 09:40 Temperature Pulse Rate 54 L Respiratory Rate Blood Pressure O2 Sat by Pulse Oximetry - Labs CBC & Chem 7: 12/30/18 05:15 12/30/18 05:15 Labs: Abnormal lab results 12/29/18 12/29/18 12/29/18 Range/Units 19:23 19:23 19:23 MCV 99 H (84-94) fl RDW 16.3 H (13.2-15.2) % Lymph % (Auto) (13.4-35.0) % [place] % (Auto) 9.0 H (0.0-7.3) % APTT 40.5 H (24.2-36.6) Sec. D-Dimer (0-234) ng/mlDDU Carbon Dioxide 20 L (22-30) mmol/L Creatinine 1.6 H (0.8-1.5) mg/dL Glucose 116 H (75-100) mg/dL POC Glucose (70-105) Total Creatine Kinase (55-170) units/L Albumin 3.7 L (3.9-5) g/dL 12/29/18 12/29/18 12/29/18 Range/Units 19:23 19:23 21:35 MCV (84-94) fl RDW (13.2-15.2) % Lymph % (Auto) (13.4-35.0) % [place] % (Auto) (0.0-7.3) % APTT (24.2-36.6) Sec. D-Dimer 745.51 H (0-234) ng/mlDDU Carbon Dioxide (22-30) mmol/L Creatinine (0.8-1.5) mg/dL Glucose (75-100) mg/dL POC Glucose 110 H (70-105) Total Creatine Kinase 231 H (55-170) units/L Albumin (3.9-5) g/dL 12/30/18 12/30/18 12/30/18 Range/Units 05:15 05:15 06:34 MCV 95 H (84-94) fl RDW 16.3 H (13.2-15.2) % Lymph % (Auto) 36.2 H (13.4-35.0) % [place] % (Auto) 10.0 H (0.0-7.3) % APTT (24.2-36.6) Sec. D-Dimer (0-234) ng/mlDDU Carbon Dioxide (22-30) mmol/L Creatinine (0.8-1.5) mg/dL Glucose 130 H (75-100) mg/dL POC Glucose 126 H (70-105) Total Creatine Kinase (55-170) units/L Albumin (3.9-5) g/dL
--- NOTE | 2018-12-30 11:23 | Consultation ---
History of Present Illness Consult date: 12/30/18 Consult reason: chest pain History of present illness: This is a 53-year old male with a history of hypertrophic obstructive cardiomyopathy and has a cardiac defibrillator. Patient has had extensive cardiac workup over the last few months. Patient underwent a cardiac cath a [facility] in June that reports non-obstructive disease recommended for medical therapy. Just a week ago, patient had a normal perfusion thallium stress test. His latest echocardiogram reports a normal left ventricular systolic function, ejection fraction 50-55%. Patient presented with chest pain with sensation of AICD discharge. His ICD was interrogated in the emergency department with report of no tachy-arrhythmias detected, no ICD discharge, a normal functioning device. Troponins are negative and a chest CTA was negative for PE. An ECG is sinus rhythm with non-specific T- wave abnormalities. No significant change from prior. For unclear reasons, patient was admitted for cardiac consultation. Past History Past Medical History: acute [place] (2 (01/2002, 05/2014)), atrial fib, arthritis (gout), CAD (stent 2), diabetes, GERD, hypertension, hyperlipidemia, pulmonary embolism (unprovoked 2 (09/2015, 12/2015) on Eliquis), renal failure, other (GI bleed him a EtOH abuse last drink May 2018, atrophic cardiomyopathy, TIA ) Past Surgical History: hernia repair, Other (left elbow, left and right meniscus, stent 2, AICD ) Social history: lives with family. denies: smoking, alcohol abuse Family history: no significant family history Medications and Allergies Allergies Allergy/AdvReac Type Severity Reaction Status Date / Time heparin Allergy Mild Hives Verified 04/05/18 12:50 metformin Allergy Mild Hives Verified 04/05/18 12:50 Home Medications Medication Instructions Recorded Confirmed Last Taken Type Apixaban [Eliquis] 5 mg PO BID 06/07/18 12/29/18 06/06/18 History Aspirin EC [Aspirin Enteric Coated 81 mg PO QDAY 06/07/18 12/29/18 06/06/18 History TAB] Atorvastatin Calcium 80 mg PO DAILY 06/07/18 12/29/18 06/06/18 History Colchicine 0.6 mg PO BID 06/07/18 12/29/18 06/06/18 History Albuterol Sulfate [Proair 2 puff IH Q4HR PRN 12/29/18 12/30/18 Unknown History Respiclick] Allopurinol [Zyloprim] 300 mg PO QDAY 12/29/18 12/29/18 Unknown History Famotidine [Pepcid] 20 mg PO DAILY 12/29/18 12/29/18 Unknown History Insulin Aspart [NovoLOG Flexpen] 16 units SQ ACHS 12/29/18 12/29/18 Unknown History Insulin Glargine,Hum.rec.anlog 42 unit SQ QHS 12/29/18 12/30/18 Unknown History [Lantus Solostar] Lisinopril [Zestril TAB] 40 mg PO QDAY 12/29/18 12/29/18 Unknown History Metoprolol [Lopressor] 100 mg PO BID 12/29/18 12/29/18 Unknown History hydroCHLOROthiazide [HCTZ] 25 mg PO QDAY 12/29/18 12/29/18 Unknown History Disopyramide Phosphate 150 mg PO BID 12/30/18 12/30/18 1 Day Ago History ~12/29/18 Active Meds: Active Medications Acetaminophen (Tylenol) 650 mg PO Q4H PRN PRN Reason: Pain MILD(1-3)/Fever >100.5/RAMÍREZ Last Admin: 12/30/18 07:57 Dose: 650 mg Documented by: Albuterol (Proventil) 2.5 mg IH Q3HRT PRN PRN Reason: Shortness Of Breath Allopurinol (Zyloprim) 300 mg PO QDAY [facility] Last Admin: 12/30/18 09:04 Dose: 300 mg Documented by: Aspirin (Halfprin Ec) 81 mg PO QDAY [facility] Last Admin: 12/30/18 09:04 Dose: 81 mg Documented by: Atorvastatin Calcium (Lipitor) 80 mg PO DAILY [facility] Last Admin: 12/30/18 09:05 Dose: 80 mg Documented by: Colchicine (Colchicine) 0.6 mg PO BID [facility] Last Admin: 12/30/18 09:05 Dose: 0.6 mg Documented by: Dextrose (D50w (25gm) Syringe) 50 ml IV PRN PRN PRN Reason: Hypoglycemia Famotidine (Pepcid) 20 mg PO DAILY [facility] Last Admin: 12/30/18 09:04 Dose: 20 mg Documented by: Hydrochlorothiazide (Hctz) 25 mg PO QDAY [facility] Last Admin: 12/30/18 09:05 Dose: 25 mg Documented by: Hydromorphone HCl (Dilaudid) 0.5 mg IV Q3H PRN PRN Reason: Pain , Severe (7-10) Insulin Glargine (Lantus) 42 units SUB-Q QHS [facility] Insulin Human Lispro (Humalog) 0 unit SUB-Q ACHS [facility]; Protocol Lisinopril (Zestril) 40 mg PO QDAY [facility] Last Admin: 12/30/18 09:04 Dose: 40 mg Documented by: Metoprolol Tartrate (Lopressor) 100 mg PO BID [facility] Last Admin: 12/30/18 09:05 Dose: 100 mg Documented by: Morphine Sulfate (Morphine) 2 mg IV Q4H PRN PRN Reason: Pain, Moderate (4-6) Nitroglycerin (Nitrostat) 0.4 mg SL .Q5MIN PRN PRN Reason: Chest Pain Ondansetron HCl (Zofran) 4 mg IV Q6H PRN PRN Reason: Nausea And Vomiting Sodium Chloride (Sodium Chloride Flush Syringe 10 Ml) 10 ml IV BID [facility] Last Admin: 12/30/18 09:05 Dose: 10 ml Documented by: Sodium Chloride (Sodium Chloride Flush Syringe 10 Ml) 10 ml IV PRN PRN PRN Reason: LINE FLUSH Physical Examination Vital Signs Temp Pulse Resp BP Pulse Ox 98.8 F 65 16 154/90 98 12/29/18 18:45 12/29/18 18:45 12/29/18 18:45 12/29/18 18:45 12/29/18 18:45 General appearance: no acute distress HEENT: Positive: PERRL Neck: Positive: trachea midline Cardiac: Positive: Reg Rate and Rhythm Lungs: Positive: Normal Breath Sounds Neuro: Positive: Grossly Intact Extremities: Absent: edema Results 12/30/18 05:15 12/30/18 05:15 Cardiac Enzymes 12/29/18 Range/Units 19:23 AST 26 (5-40) units/L Coagulation 12/29/18 Range/Units 19:23 PT Not Reportable INR Not Reportable APTT 40.5 H (24.2-36.6) Sec. CBC 12/29/18 12/30/18 Range/Units 19:23 05:15 WBC 8.4 7.9 (4.5-11.0) K/mm3 RBC 4.38 4.13 (3.65-5.03) M/mm3 Hgb 14.0 12.8 (11.8-15.2) gm/dl Hct 43.1 39.1 (35.5-45.6) % Plt Count 147 219 (140-440) K/mm3 Lymph # 3.0 2.9 (1.2-5.4) K/mm3 [place] # 0.8 0.8 (0.0-0.8) K/mm3 Eos # 0.1 0.2 (0.0-0.4) K/mm3 Baso # 0.1 0.1 (0.0-0.1) K/mm3 Comprehensive Metabolic Panel 12/29/18 12/30/18 Range/Units 19:23 05:15 Sodium 139 143 (137-145) mmol/L Potassium 4.3 4.7 (3.6-5.0) mmol/L Chloride 101.8 102.4 (98-107) mmol/L Carbon Dioxide 20 L 26 (22-30) mmol/L BUN 19 18 (9-20) mg/dL Creatinine 1.6 H 1.5 (0.8-1.5) mg/dL Glucose 116 H 130 H (75-100) mg/dL Calcium 9.2 9.0 (8.4-10.2) mg/dL AST 26 (5-40) units/L ALT 30 (7-56) units/L Alkaline Phosphatase 86 (35-129) units/L Total Protein 7.3 (6.3-8.2) g/dL Albumin 3.7 L (3.9-5) g/dL Assessment and Plan Chest pain, atypical device interrogation reveals a normal functioning device. No tachyarrhythmias detected and no AICD discharge. Hx of hypertrophic obstructive cardiomyopathy [facility] 06/2018 at [facility]: non-obstructive coronary disease recommended for medical therapy outpatient [facility] 12/24/2018: normal perfusion scan outpatient echo 08/2018: normal LVEF 50-55%. Diabetes Hx of PE -on eliquis as an outpatient chest CTA this admission reports no evidence of PE Hypertension No cardiac workup indicated. Stable for cardiac discharge. Patient advised to follow up with Dr Mahajan within 3-5 days.
[2018-12-30] MEDS: MORPHINE IV PRN ×2 (13:32→21:57)
[2018-12-30] MEDS ORDERED: INSULIN GLARGINE HUM REC ANLOG 42 UNIT SQ SCH (22:00)
[2018-12-30] MEDS ORDERED: LANTUS SUB-Q SCH (22:00)
[2018-12-31 08:07] VITALS: BP 125/73
[2018-12-31] MEDS: HumaLOG SUB-Q SCH ×2 (08:31→13:04)
[2018-12-31] MEDS: PEPCID PO SCH (09:24)
[2018-12-31] MEDS: HCTZ PO SCH (09:24)
[2018-12-31] MEDS: HALFPRIN EC PO SCH (09:24)
[2018-12-31] MEDS: SODIUM CHLORIDE FLUSH SYRINGE 10 ML IV SCH (09:24)
[2018-12-31] MEDS: ZYLOPRIM PO SCH (09:24)
[2018-12-31] MEDS: METOPROLOL PO SCH (09:24)
[2018-12-31] MEDS: COLCHICINE PO SCH (09:24)
[2018-12-31] MEDS: ZESTRIL PO SCH (09:25)
[2018-12-31] MEDS: MORPHINE IV PRN (09:39)
--- NOTE | 2018-12-31 09:57 | Discharge Summary ---
Providers - Providers Date of Admission: 12/29/18 23:19 Date of discharge: 12/31/18 Attending physician: MITCHEL MARINO 12/29/18 Consult to Cardiac Rehabilitation [CONS] Routine Reason For Exam: Phase I 12/29/18 23:18 Consult to Physician [CONS] Routine Comment: Consulting Provider: NITIN FRANCIS Physician Instructions: Reason For Exam: chest pain, hx mi, AICD, est pt Primary care physician: [facility] Hospitalization Condition: Stable Hospital course: Patient presents after dinner. Fine of defibrillator. Patient had extensive workup is currently chest pain-free. Patient had recent cardiac catheterization 5 months ago negative for coronary disease. Patient had a prior history of stent 2. Also a history of pulmonary embolism 2 on Eliquis for anticoagulation. Upon this admission patient had no dysrhythmias on monitor. Chest x-ray was clear. Defibrillator was interrogated which showed no firing at all. Patient also had a stress test which was -2 weeks ago an echocardiogram which showed normal ejection fraction. Patient stabilized for discharge. Cardiology. Disposition: TO HOME OR SELFCARE Core Measure Documentation - Palliative Care Palliative Care/ Comfort Measures: Not Applicable - Core Measures Any of the following diagnoses?: heart failure - Heart Failure Discharge Requirements UMANG/ARB for LVSD if EF <40%: Yes Beta andrzej at discharge: Yes Exam - Constitutional Vitals: Temp Pulse Resp BP Pulse Ox 98.1 F 74 16 125/73 97 12/31/18 07:59 12/31/18 09:25 12/31/18 08:55 12/31/18 09:25 12/31/18 07:59 General appearance: Present: no acute distress, well-nourished - EENT Eyes: Present: PERRL ENT: hearing intact, clear oral mucosa - Neck Neck: Present: supple, normal ROM - Respiratory Respiratory effort: normal Respiratory: bilateral: CTA - Cardiovascular Heart Sounds: Present: S1 & S2. Absent: rub, click - Extremities Extremities: pulses symmetrical, No edema Peripheral Pulses: within normal limits - Abdominal General gastrointestinal: Present: soft, non-tender, non-distended, normal bowel sounds Male genitourinary: Present: normal - Integumentary Integumentary: Present: clear, warm, dry - Musculoskeletal Musculoskeletal: gait normal, strength equal bilaterally - Psychiatric Psychiatric: appropriate mood/affect, intact judgment & insight - Neurologic Neurologic: CNII-XII intact, moves all extremities Plan Activity: no restrictions Diet: low cholesterol, low salt Special Instructions: restrict fluid intake to (2.0), record daily BP diary Follow up with: JOSE EDUARDO VILLEGASOCONEE MD MAYANK [Referring] - 3-5 Days
--- NOTE | 2018-12-31 11:10 | Progress Note ---
Assessment and Plan Chest pain, atypical device interrogation reveals a normal functioning device. No evidence of discharge. Hx of hypertrophic cardiomyopathy [facility] 06/2018 at [facility]: non-obstructive coronary disease recommended for medical therapy outpatient [facility] 12/24/2018: normal perfusion scan outpatient echo 08/2018: normal LVEF 50-55%. Diabetes Hx of PE -on eliquis as an outpatient chest CTA this admission reports no evidence of PE Hypertension No cardiac workup indicated. Stable for cardiac discharge. Patient advised to follow up with Dr Mahajan within 3-5 days. Subjective Date of service: 12/31/18 Principal diagnosis: chest pain, T2 DM, hypertrophic cardio myopathy Interval history: No cardiac complaints. No events on telemetry monitoring. For planned discharge home today. Objective Vital Signs Temp Pulse Resp BP Pulse Ox 12/31/18 09:25 74 125/73 12/31/18 09:24 74 125/73 12/31/18 08:55 16 12/31/18 07:59 98.1 F 74 18 125/73 97 12/31/18 03:50 98.0 F 61 17 130/77 97 12/30/18 23:33 98.4 F 64 18 132/71 100 12/30/18 19:45 64 12/30/18 19:25 98.2 F 64 18 129/73 96 12/30/18 16:13 63 130/70 95 12/30/18 11:36 98.5 F 57 L 18 142/77 99 - Physical Examination General: No Apparent Distress HEENT: Positive: PERRL Neck: Positive: trachea midline Cardiac: Positive: Reg Rate and Rhythm Lungs: Positive: Decreased Breath Sounds Neuro: Positive: Grossly Intact Extremities: Absent: edema
== END 2018-12-31 13:40 | disposition home or self-care (01) ==
LOC: ED 18:43 → 4A 23:19
PROVIDERS: ADMIT Internal Medicine; ATTEND Internal Medicine
DX: R07.89 Other chest pain (principal); I48.91 Unspecified atrial fibrillation; I25.10 Atherosclerotic heart disease of native coronary artery without angina pectoris; I13.0 Hypertensive heart and chronic kidney disease with heart failure and stage 1 through stage 4 chronic kidney disease, or unspecified chronic kidney disease; I50.9 Heart failure, unspecified; N18.3 Chronic kidney disease, stage 3 (moderate); E11.22 Type 2 diabetes mellitus with diabetic chronic kidney disease; E78.5 Hyperlipidemia, unspecified; M10.9 Gout, unspecified; Z86.73 Personal history of transient ischemic attack (TIA), and cerebral infarction without residual deficits; Z86.711 Personal history of pulmonary embolism; Z88.8 Allergy status to other drugs, medicaments and biological substances; Z79.899 Other long term (current) drug therapy; Z79.82 Long term (current) use of aspirin
CPT/HCPCS: 36415; 71045; 71275; 80048; 80053; 82550; 82962; 83735; 83880; 84484; 85025; 85379; 85610; 85730; 93005; 93010; 94640; 96372; 96374; 96375; 96376; A9270; G0378; J2270; J2405; Q9967; J1815

== ENCOUNTER 2019-02-05 18:00 | Emergency (ER) | payer OTHER ==
--- NOTE | 2019-02-05 18:31 | Event Note ---
ED Screening Note Date of service: 02/05/19 Time: 18:26 ED Screening Note: 53 y o male with PMH of DM, CHF, PE and 2 MS with a defribilator presents with chest pain and sob x last night This initial assessment/diagnostic orders/clinical plan/treatment(s) is/are subject to change based on patients health status, clinical progression and re- assessment by fellow clinical providers in the ED. Further treatment and workup at subsequent clinical providers discretion. Patient/guardian urged not to elope from the ED as their condition may be serious if not clinically assessed and managed. Initial orders include: labs,xray main side eval
[2019-02-05 19:21] LABS: Basophils # (Auto) 0.1 K/mm3 (0.0-0.1); Basophils % (Auto) 1.2 % (0.0-1.8); Eosinophils # (Auto) 0.2 K/mm3 (0.0-0.4); Eosinophils % (Auto) 2.1 % (0.0-4.3); Hematocrit 43.4 % (35.5-45.6); Hemoglobin 14.6 gm/dl (11.8-15.2); Lymphocytes # (Auto) 2.6 K/mm3 (1.2-5.4); Lymphocytes % (Auto) 36.5 % (13.4-35.0); Mean Corpuscular HGB Conc 34 % (32-34); Mean Corpuscular Volume 97 fl (84-94); Monocytes # (Auto) 0.8 K/mm3 (0.0-0.8); Monocytes % (Auto) 10.7 % (0.0-7.3); Platelet Count 265 K/mm3 (140-440); Red Blood Count 4.49 M/mm3 (3.65-5.03); Red Cell Distribution Width 15.1 % (13.2-15.2)
[2019-02-05 19:33] LABS: BUN/Creatinine Ratio 15; Blood Urea Nitrogen 21 mg/dL (9-20); Calcium 9.1 mg/dL (8.4-10.2); Hemolysis Index 197
--- NOTE | 2019-02-05 19:50 | XRay Report ---
CHEST 2 VIEWS INDICATION / CLINICAL INFORMATION: Chest Pain. COMPARISON: 12/29/2018 FINDINGS: SUPPORT DEVICES: ICD remains on the left. HEART / MEDIASTINUM: No significant abnormality. LUNGS / PLEURA: No significant pulmonary or pleural abnormality. No pneumothorax. ADDITIONAL FINDINGS: No significant additional findings. IMPRESSION: 1. No acute findings. Signer Name: Ed Rivera MD Signed: 02/05/2019 7:46 PM Workstation Name: [id number]
[2019-02-05] MEDS ORDERED: INSULIN REGULAR, HUMAN 100 UNITS/1 ML SUB-Q ONE (20:48)
[2019-02-05] MEDS ORDERED: FAMOTIDINE 20 MG TAB PO ONE (20:48)
[2019-02-05] MEDS ORDERED: SODIUM POLYSTYRENE 15 GM/60 ML ORAL LIQD PO ONE (20:48)
[2019-02-05] MEDS ORDERED: ACETAMINOPHEN 325 MG TAB PO ONE (20:48)
[2019-02-05] MEDS ORDERED: traMADol 50 MG TAB PO ONE (20:49)
--- NOTE | 2019-02-05 20:50 | Emergency Department Report ---
ED General Adult HPI - General Chief complaint: Chest Pain Stated complaint: CHEST PAIN Time Seen by Provider: 02/05/19 20:32 Source: patient, RN notes reviewed, old records reviewed Mode of arrival: Ambulatory Limitations: No Limitations - History of Present Illness Initial comments: This is a pleasant 53-year-old gentleman. I have evaluated this patient in the past. He follows at the [facility]. He has a single chamber ICD in place, hypertrophic cardiomyopathy, chronic anticoagulation for which she reports compliance, eliquis multiple visits for chest pain. As per review of prior cardiology documentation, he had a cardiac catheterization at [facility] in June that demonstrated nonobstructive disease, recommended for medical therapy. In addition, an early December, he had a normal perfusion stress thallium test. His latest echocardiogram also demonstrated normal left ventricular systolic function, with an ejection fraction of 55%. He also had a negative CT angiogram chest for pulmonary embolism last month. Today, the patient presents to the ER with a complaint of nontraumatic left sided hemithorax pain, present since October, worse over the past 24 hours. The pain starts in the left lateral hemithorax moves to the left anterior chest wall. It is constant for the past 24 hours. There is no vomiting or diaphoresis. There is no new exertional shortness of breath. The pain is sharp, increases with palpation, range of motion, twisting, and deep inspiration. The patient endorses compliance with systemic anticoagulation, and denies recent surgery, and denies recent hospitalization and/or periods of immobilization. On review of systems, he reports that he feels quite sleepy after sleeping. He denies headache, neck pain, lower abdominal pain, hematemesis, bright red blood per rectum, and he denies urinary symptoms. dur -: Gradual, hour(s), week(s), month(s) Location: back Radiation: other Quality: aching Consistency: constant Improves with: rest Worsens with: movement - Related Data Home Medications Medication Instructions Recorded Confirmed Last Taken Apixaban [Eliquis] 5 mg PO BID 06/07/18 12/29/18 06/06/18 Aspirin EC [Halfprin EC] 81 mg PO QDAY 06/07/18 12/29/18 06/06/18 Atorvastatin Calcium 80 mg PO DAILY 06/07/18 12/29/18 06/06/18 Colchicine 0.6 mg PO BID 06/07/18 12/29/18 06/06/18 Albuterol Sulfate [Proair 2 puff IH Q4HR PRN 12/29/18 12/30/18 Unknown Respiclick] Allopurinol [Zyloprim] 300 mg PO QDAY 12/29/18 12/29/18 Unknown Famotidine [Pepcid] 20 mg PO DAILY 12/29/18 12/29/18 Unknown Insulin Aspart (Nf) [NovoLOG 16 units SQ ACHS 12/29/18 12/29/18 Unknown Flexpen] Insulin Glargine,Hum.rec.anlog 42 unit SQ QHS 12/29/18 12/30/18 Unknown [Lantus Solostar] Lisinopril [Zestril TAB] 40 mg PO QDAY 12/29/18 12/29/18 Unknown Metoprolol [Lopressor TAB] 100 mg PO BID 12/29/18 12/29/18 Unknown hydroCHLOROthiazide [HCTZ] 25 mg PO QDAY 12/29/18 12/29/18 Unknown Disopyramide Phosphate 150 mg PO BID 12/30/18 12/30/18 1 Day Ago ~12/29/18 Previous Rx's Medication Instructions Recorded Last Taken Type Acetaminophen [Acetaminophen TAB] 650 mg PO Q4H PRN tablet 12/31/18 Unknown Rx Allergies Allergy/AdvReac Type Severity Reaction Status Date / Time heparin Allergy Mild Hives Verified 04/05/18 12:50 metformin Allergy Mild Hives Verified 04/05/18 12:50 ED Review of Systems ROS: Stated complaint: CHEST PAIN Other details as noted in HPI Constitutional: denies: fever Eyes: denies: eye discharge ENT: denies: congestion Respiratory: other (pleuritic left-sided pain). denies: wheezing Cardiovascular: chest pain Gastrointestinal: denies: vomiting Musculoskeletal: myalgia Neurological: denies: weakness Psychiatric: anxiety Hematological/Lymphatic: denies: easy bleeding ED Past Medical Hx - Past Medical History Previous Medical History?: Yes Hx Hypertension: Yes Hx Heart Attack/AMI: Yes (x2) Hx Congestive Heart Failure: Yes Hx Diabetes: Yes Hx Pulmonary Embolism: Yes Hx GERD: Yes Hx Sickle Cell Disease: No Hx Arthritis: Yes (GOUT) Hx Asthma: No Hx COPD: No Hx HIV: No Additional medical history: HYPERTROPHIC CARDIOMYOPATHY. TIA - Surgical History Past Surgical History?: Yes Hx Coronary Stent: No Hx Open Heart Surgery: Yes (DEFIBRILLATOR) Hx Internal Defibrillator: Yes Additional Surgical History: LEFT ELBOW. DOUBLE HERNIA REPAIR. LEFT AND RIGHT MENISCUS - Social History Smoking Status: Never Smoker Substance Use Type: None - Medications Home Medications: Home Medications Medication Instructions Recorded Confirmed Last Taken Type Apixaban [Eliquis] 5 mg PO BID 06/07/18 12/29/18 06/06/18 History Aspirin EC [Halfprin EC] 81 mg PO QDAY 06/07/18 12/29/18 06/06/18 History Atorvastatin Calcium 80 mg PO DAILY 06/07/18 12/29/18 06/06/18 History Colchicine 0.6 mg PO BID 06/07/18 12/29/18 06/06/18 History Albuterol Sulfate [Proair 2 puff IH Q4HR PRN 12/29/18 12/30/18 Unknown History Respiclick] Allopurinol [Zyloprim] 300 mg PO QDAY 12/29/18 12/29/18 Unknown History Famotidine [Pepcid] 20 mg PO DAILY 12/29/18 12/29/18 Unknown History Insulin Aspart (Nf) [NovoLOG 16 units SQ ACHS 12/29/18 12/29/18 Unknown History Flexpen] Insulin Glargine,Hum.rec.anlog 42 unit SQ QHS 12/29/18 12/30/18 Unknown History [Lantus Solostar] Lisinopril [Zestril TAB] 40 mg PO QDAY 12/29/18 12/29/18 Unknown History Metoprolol [Lopressor TAB] 100 mg PO BID 12/29/18 12/29/18 Unknown History hydroCHLOROthiazide [HCTZ] 25 mg PO QDAY 12/29/18 12/29/18 Unknown History Disopyramide Phosphate 150 mg PO BID 12/30/18 12/30/18 1 Day Ago History ~12/29/18 Acetaminophen [Acetaminophen TAB] 650 mg PO Q4H PRN tablet 12/31/18 Unknown Rx ED Physical Exam - General Limitations: No Limitations General appearance: alert, in no apparent distress, obese - Head Head exam: Present: atraumatic, normocephalic - Eye Eye exam: Present: normal appearance, EOMI. Absent: nystagmus - ENT ENT exam: Present: normal exam, normal orophraynx, mucous membranes moist, normal external ear exam - Neck Neck exam: Present: normal inspection, full ROM. Absent: tenderness, meningismus - Respiratory Respiratory exam: Present: normal lung sounds bilaterally, chest wall tenderness (is reproducible left-sided thoracic tenderness). Absent: respiratory distress - Cardiovascular Cardiovascular Exam: Present: regular rate, normal rhythm, normal heart sounds. Absent: bradycardia, tachycardia, irregular rhythm, systolic murmur, diastolic murmur, rubs, gallop - GI/Abdominal GI/Abdominal exam: Present: soft. Absent: distended, tenderness, guarding, rebound, pulsatile mass - Rectal Rectal exam: Present: deferred - Extremities Exam Extremities exam: Present: normal inspection, full ROM, other (2+ pulses noted in the bilateral upper, lower extremities. There is no long bone tenderness. Musculoskeletal compartments are soft. The pelvis is stable.). Absent: pedal edema, joint swelling, calf tenderness - Back Exam Back exam: Present: normal inspection, full ROM. Absent: tenderness, CVA tenderness (R), CVA tenderness (L), paraspinal tenderness, vertebral tenderness - Neurological Exam Neurological exam: Present: alert, oriented X3, normal gait, other (there is no facial droop. The tongue is midline. Extraocular movements are intact bilaterally. Patient speaking in full complete sentences. Shoulder shrug is intact bilaterally. Hearing is grossly intact bilaterally. Visual acuity intact to finger counting and color perception at a close distance. 5/5 strength 4 extremities. Sensation intact to light touch in 4 extremities.). Absent: motor sensory deficit - Psychiatric Psychiatric exam: Present: anxious - Skin Skin exam: Present: warm, dry, intact, normal color. Absent: rash ED Course Vital Signs 02/05/19 02/05/19 02/05/19 18:26 21:01 22:07 Temperature 97.8 F 98 F Pulse Rate 87 60 64 Respiratory 20 16 19 Rate Blood Pressure 118/82 Blood Pressure 131/78 [Right] O2 Sat by Pulse 99 99 Oximetry - Reevaluation(s) Reevaluation #1: 02/05/19 21:26 Differential diagnosis, including but not limited to: Costochondritis, GERD, gastritis, hiatal hernia, pneumonia, acute coronary syndrome Assessment and plan: 53-year-old gentleman with reproducible left-sided chest wall pain, present for weeks and months, on chronic systemic anticoagulation, not tachycardic, tachypneic, or hypoxic, compliant with medicine, seen by cardiology last month, had a cardiac catheterization within the past few months, echocardiogram and stress test. As per recent cardiology documentation, no additional cardiac risk stratification was recommended. I have seen this patie nt multiple times in the past for similar complaints, his presentation today appears to be similar to prior evaluations. Patient will not benefit from hospitalization for repeat cardiac risk stratification at this time. He will need to follow-up with an outpatient primary care doctor or his outpatient primary anthropological linguist. He may also have undiagnosed obstructive sleep apnea, we discussed diet, lifestyle modifications, weight loss, physical activity as tolerated, and need to follow-up with an outpatient physician to arrange for sleep study. Reevaluation #2: 02/05/19 22:39 EKG unchanged 2. Troponin negative 2. Resting comfortably, and in no acute distress. Vital signs remained stable. The patient is suitable for discharge at this point time. ED Medical Decision Making - Lab Data Result diagrams: 02/05/19 18:49 02/05/19 18:49 Vital Signs 02/05/19 02/05/19 18:26 21:01 Temperature 97.8 F 98 F Pulse Rate 87 60 Respiratory 20 16 Rate Blood Pressure 118/82 Blood Pressure 131/78 [Right] O2 Sat by Pulse 99 99 Oximetry Lab Results 02/05/19 02/05/19 02/05/19 Range/Units 18:49 18:49 21:12 WBC 7.2 (4.5-11.0) K/mm3 RBC 4.49 (3.65-5.03) M/mm3 Hgb 14.6 (11.8-15.2) gm/dl Hct 43.4 (35.5-45.6) % MCV 97 H (84-94) fl MCH 33 H (28-32) pg MCHC 34 (32-34) % RDW 15.1 (13.2-15.2) % Plt Count 265 (140-440) K/mm3 Lymph % (Auto) 36.5 H (13.4-35.0) % Frederick % (Auto) 10.7 H (0.0-7.3) % Eos % (Auto) 2.1 (0.0-4.3) % Baso % (Auto) 1.2 (0.0-1.8) % Lymph # 2.6 (1.2-5.4) K/mm3 Frederick # 0.8 (0.0-0.8) K/mm3 Eos # 0.2 (0.0-0.4) K/mm3 Baso # 0.1 (0.0-0.1) K/mm3 Seg Neutrophils % 49.5 (40.0-70.0) % Seg Neutrophils # 3.5 (1.8-7.7) K/mm3 Sodium 135 L (137-145) mmol/L Potassium 5.2 H (3.6-5.0) mmol/L Chloride 96.6 L (98-107) mmol/L Carbon Dioxide 24 (22-30) mmol/L Anion Gap 20 mmol/L BUN 21 H (9-20) mg/dL Creatinine 1.4 (0.8-1.5) mg/dL Estimated GFR > 60 ml/min BUN/Creatinine Ratio 15 % Glucose 339 H (75-100) mg/dL POC Glucose 286 H (70-105) Calcium 9.1 (8.4-10.2) mg/dL Troponin T < 0.010 (0.00-0.029) ng/mL - EKG Data EKG shows normal: sinus rhythm Rate: normal - EKG Data 02/05/19 21:28 Both EKGs are unchanged when compared to each other, both EKGs appear to be unchanged when compared to prior EKG from December 2018 EKG #1 shows motion artifact, sinus rhythm, left ventricular hypertrophy, QTC 445 ms, poor R wave progression, 78 bpm, numerous T-wave abnormalities, not consistent with STEMI, unchanged from prior EKG from 12/30/2018 EKG #2 was unchanged from prior. - Radiology Data Radiology results: report reviewed, image reviewed X-ray of the chest is negative for acute disease Critical care attestation.: If time is entered above; I have spent that time in minutes in the direct care of this critically ill patient, excluding procedure time. ED Disposition Clinical Impression: Chest pain in adult Disposition: DC-01 TO HOME OR SELFCARE Is pt being admited?: No Does the pt Need Aspirin: No Condition: Stable Instructions: Chest Pain (ED) Additional Instructions: Rest, avoid heavy lifting, and avoid strenuous physical activities. Continue current outpatient medications. Patient may take [id number] Tylenol, 650 mg by mouth, every 4-6 hours as needed for pain. He can also take [id number] Pepcid, 20 mg by mouth, every 12-24 hours. Recommend following up with her outpatient primary care doctor or anthropological linguist for chest wall pain within the next 3-5 days. Recommend physical activities as tolerated, modification of diet to avoid consumption of heavy and spicy foods, avoid simple carbohydrates, avoid consumption of sugar and soda, increased consumption of fiber, lean protein, vegetables. Recommend follow-up with an outpatient primary care doctor or sleep specialist within the next month to evaluate for possible obstructive sleep apnea. Please return to emergency room right away with new, w orsened or different symptoms, or symptoms not present on the initial emergency room evaluation. Referrals: NITIN FRANCIS MD [Staff Physician] - 3-5 Days DEZ VALLEJO MD [Staff Physician] - 3-5 Days JODIE RANDOLPH MD [Staff Physician] - as needed (for obstructive sleep apnea evaluation)
[2019-02-05 23:08] VITALS: BP 131/70
== END 2019-02-05 23:10 | disposition home or self-care (01) ==
LOC: ED 18:00
DX: R07.89 Other chest pain (principal); I42.2 Other hypertrophic cardiomyopathy; I11.0 Hypertensive heart disease with heart failure; I50.9 Heart failure, unspecified; E11.9 Type 2 diabetes mellitus without complications; K21.9 Gastro-esophageal reflux disease without esophagitis; M10.9 Gout, unspecified; Z86.711 Personal history of pulmonary embolism; Z86.73 Personal history of transient ischemic attack (TIA), and cerebral infarction without residual deficits; Z88.8 Allergy status to other drugs, medicaments and biological substances; Z79.82 Long term (current) use of aspirin; Z79.899 Other long term (current) drug therapy; Z79.4 Long term (current) use of insulin
CPT/HCPCS: 36415; 71046; 80048; 82550; 82962; 83735; 84484; 85025; 93005; 93010; 99284

== ENCOUNTER 2019-05-06 00:16 | Emergency (ER) | payer OTHER ==
[2019-05-06 00:52] VITALS: BP 154/99
[2019-05-06] MEDS ORDERED: KETOROLAC 30 MG/1 ML INJ IM ONE (03:33)
[2019-05-06] MEDS ORDERED: dexAMETHasone 20 MG/5 ML VIAL IM ONE (03:33)
--- NOTE | 2019-05-06 03:44 | Emergency Department Report ---
{null, ED General Adult HPI - General Chief complaint: Extremity Injury, Upper Stated complaint: RT HAND SWELLING W/PAIN Time Seen by Provider: 05/06/19 02:55 Source: patient Mode of arrival: Ambulatory Limitations: No Limitations - History of Present Illness Initial comments: This is a 53-year-old male with a history of gout who presents the ED complaining swelling and pain to the right thumb x2 days. [facility]. Patient states that he is right thumb is in pain and swelling. He denies any trauma or injury and states that this is a result of his gouty arthritis flaring up. - Related Data Home Medications Medication Instructions Recorded Confirmed Last Taken Apixaban [Eliquis] 5 mg PO BID 06/07/18 05/08/19 04/15/19 Aspirin EC [Halfprin EC] 81 mg PO QDAY 06/07/18 05/08/19 04/15/19 Atorvastatin Calcium 80 mg PO DAILY 06/07/18 05/08/19 04/15/19 Colchicine 0.6 mg PO BID 06/07/18 05/08/19 04/15/19 Insulin Aspart (Nf) [NovoLOG 16 units SQ ACHS 12/29/18 05/08/19 04/15/19 Flexpen] Insulin Glargine,Hum.rec.anlog 42 unit SQ QHS 12/29/18 05/08/19 04/15/19 [Lantus Solostar] Metoprolol [Lopressor TAB] 100 mg PO BID 12/29/18 05/08/19 04/15/19 amLODIPine 10 mg PO DAILY 05/08/19 05/08/19 04/15/19 hydroCHLOROthiazide 25 mg PO DAILY 05/08/19 05/08/19 04/15/19 [Hydrochlorothiazide] Previous Rx's Medication Instructions Recorded Last Taken Type Acetaminophen [Acetaminophen TAB] 650 mg PO Q4H PRN tablet 12/31/18 04/15/19 Rx Allergies Allergy/AdvReac Type Severity Reaction Status Date / Time heparin Allergy Mild Hives Verified 05/08/19 08:28 metformin Allergy Mild Hives Verified 05/08/19 08:28 ED Review of Systems ROS: Stated complaint: RT HAND SWELLING W/PAIN Other details as noted in HPI Comment: All other systems reviewed and negative ED Past Medical Hx - Past Medical History Previous Medical History?: Yes Hx Hypertension: Yes Hx CVA: Yes (tia's) Hx Heart Attack/AMI: Yes (x2) Hx Congestive Heart Failure: Yes Hx Diabetes: Yes Hx Pulmonary Embolism: Yes Hx GERD: Yes Hx Sickle Cell Disease: No Hx Arthritis: Yes (GOUT) Hx Asthma: No Hx COPD: No Hx HIV: No Additional medical history: HYPERTROPHIC CARDIOMYOPATHY. TIA - Surgical History Past Surgical History?: Yes Hx Coronary Stent: No Hx Open Heart Surgery: Yes (DEFIBRILLATOR) Hx Internal Defibrillator: Yes Additional Surgical History: LEFT ELBOW. DOUBLE HERNIA REPAIR. LEFT AND RIGHT MENISCUS - Social History Smoking Status: Never Smoker Substance Use Type: None - Medications Home Medications: Home Medications Medication Instructions Recorded Confirmed Last Taken Type Apixaban [Eliquis] 5 mg PO BID 06/07/18 05/08/19 04/15/19 History Aspirin EC [Halfprin EC] 81 mg PO QDAY 06/07/18 05/08/19 04/15/19 History Atorvastatin Calcium 80 mg PO DAILY 06/07/18 05/08/19 04/15/19 History Colchicine 0.6 mg PO BID 06/07/18 05/08/19 04/15/19 History Insulin Aspart (Nf) [NovoLOG 16 units SQ ACHS 12/29/18 05/08/19 04/15/19 History Flexpen] Insulin Glargine,Hum.rec.anlog 42 unit SQ QHS 12/29/18 05/08/19 04/15/19 History [Lantus Solostar] Metoprolol [Lopressor TAB] 100 mg PO BID 12/29/18 05/08/19 04/15/19 History Acetaminophen [Acetaminophen TAB] 650 mg PO Q4H PRN tablet 12/31/18 05/08/19 04/15/19 Rx amLODIPine 10 mg PO DAILY 05/08/19 05/08/19 04/15/19 History hydroCHLOROthiazide 25 mg PO DAILY 05/08/19 05/08/19 04/15/19 History [Hydrochlorothiazide] ED Physical Exam - General Limitations: No Limitations General appearance: alert, in no apparent distress - Head Head exam: Present: atraumatic, normocephalic - Eye Eye exam: Present: normal appearance - ENT ENT exam: Present: mucous membranes moist - Neck Neck exam: Present: normal inspection - Respiratory Respiratory exam: Present: normal lung sounds bilaterally. Absent: respiratory distress - Cardiovascular Cardiovascular Exam: Present: regular rate, normal rhythm. Absent: systolic murmur, diastolic murmur, rubs, gallop - GI/Abdominal GI/Abdominal exam: Present: soft, normal bowel sounds - Rectal Rectal exam: Present: deferred - Extremities Exam Extremities exam: Present: normal inspection, full ROM, tenderness (To palpation of the right thumb), normal capillary refill, other (No erythema, no swelling, no redness). Absent: joint swelling - Back Exam Back exam: Present: normal inspection, full ROM - Neurological Exam Neurological exam: Present: alert, oriented X3 - Psychiatric Psychiatric exam: Present: normal affect, normal mood - Skin Skin exam: Present: warm, dry, intact, normal color. Absent: rash ED Course Vital Signs 05/06/19 05/06/19 00:40 04:12 Temperature 98.7 F Pulse Rate 81 62 Respiratory 18 15 Rate Blood Pressure 154/99 O2 Sat by Pulse 97 100 Oximetry ED Medical Decision Making - Medical Decision Making 53-year-old male presents regarding arthritis of the right thumb. All other examinations were normal. Discussed with patient to follow-up with primary care physician. Patient did note that [facility] and has a prescription for colchicine. Critical care attestation.: If time is entered above; I have spent that time in minutes in the direct care of this critically ill patient, excluding procedure time. ED Disposition Clinical Impression: Gouty arthritis of right hand, Acute gouty arthritis Disposition: TO HOME OR SELFCARE Is pt being admited?: No Does the pt Need Aspirin: No Condition: Stable Instructions: Acute Gouty Arthritis (ED) Additional Instructions: Make sure to follow up with the primary care physician as discussed. Take all your medications as you've been prescribed. If you have any worsening symptoms or develop new symptoms please return to ED immediately. Referrals: HILARY ROTH [Other] - 3-5 Days Forms: Accompanied Note, Work/School Release Form(ED) Time of Disposition: 03:46 }
== END 2019-05-06 04:12 | disposition home or self-care (01) ==
LOC: ED 00:16
DX: M10.9 Gout, unspecified (principal); I11.0 Hypertensive heart disease with heart failure; I50.9 Heart failure, unspecified; E11.9 Type 2 diabetes mellitus without complications; K21.9 Gastro-esophageal reflux disease without esophagitis; Z95.810 Presence of automatic (implantable) cardiac defibrillator; Z79.899 Other long term (current) drug therapy; Z88.8 Allergy status to other drugs, medicaments and biological substances; Z86.73 Personal history of transient ischemic attack (TIA), and cerebral infarction without residual deficits
CPT/HCPCS: 96372; 99282; J1100; J1885

== ENCOUNTER 2019-06-03 11:11 | Emergency (ER) | payer OTHER ==
--- NOTE | 2019-06-03 11:45 | Emergency Department Report ---
Blank Doc - Documentation Documentation: 53-year-old male that presents with SOB and crackles. HX of CHF. This initial assessment/diagnostic orders/clinical plan/treatment(s) is/are subject to change based on patient's health status, clinical progression and re- assessment by fellow clinical providers in the ED. Further treatment and workup at subsequent clinical providers discretion. Patient/guardians urged not to elope from the ED as their condition may be serious if not clinically assessed and managed. Initial orders include: 1- Patient sent to MAIN ED for further evaluation and treatment 2- cardiac workup
--- NOTE | 2019-06-03 12:40 | XRay Report ---
CHEST 2 VIEWS INDICATION: Chest Pain. COMPARISON: 02/05/2019 FINDINGS: Support devices: Stable satisfactory device positioning. Heart: Within normal limits. Lungs/pleura: No acute air space or interstitial disease. No pneumothorax. Additional findings: None. IMPRESSION: 1. No acute findings. Signer Name: Edgardo Kong MD Signed: 06/03/2019 12:36 PM Workstation Name: [id number]
[2019-06-03] MEDS ORDERED: IPRATROPIUM/ALBUTEROL SULFATE 3 ML AMPUL.NEB IH ONE (12:41)
[2019-06-03 13:16] LABS: Basophils # (Auto) 0.1 K/mm3 (0.0-0.1); Basophils % (Auto) 0.7 % (0.0-1.8); Eosinophils # (Auto) 0.2 K/mm3 (0.0-0.4); Eosinophils % (Auto) 2.3 % (0.0-4.3); Hematocrit 40.8 % (35.5-45.6); Hemoglobin 13.6 gm/dl (11.8-15.2); Lymphocytes # (Auto) 2.3 K/mm3 (1.2-5.4); Lymphocytes % (Auto) 31.8 % (13.4-35.0); Mean Corpuscular HGB Conc 33 % (32-34); Mean Corpuscular Volume 94 fl (84-94); Monocytes # (Auto) 0.7 K/mm3 (0.0-0.8); Monocytes % (Auto) 9.8 % (0.0-7.3); Platelet Count 301 K/mm3 (140-440); Red Blood Count 4.33 M/mm3 (3.65-5.03); Red Cell Distribution Width 15.3 % (13.2-15.2)
[2019-06-03 13:25] LABS: INR 1.09 (0.87-1.13)
[2019-06-03 13:26] LABS: Partial Thromboplastin Time 32.3 Sec. (24.2-36.6)
--- NOTE | 2019-06-03 13:43 | Emergency Department Report ---
ED General Adult HPI - General Chief complaint: Dyspnea/Respdistress Stated complaint: SOB/WEAKNESS,CONSGESTED Time Seen by Provider: 06/03/19 11:43 Source: patient Mode of arrival: Ambulatory Limitations: No Limitations - History of Present Illness Initial comments: The patient presents to the emergency department the chief complaint of shortness of breath with congestion and wheezing x3 weeks. Patient denies body aches but does endorse a cough that is productive in nature. Patient states he was seen at the [facility] 3 weeks ago and was told that he had bronchitis. Patient denies any recent travel or contact with anyone who has tested positive for [place] VID 19. Patient also denies having a fever and states he is currently not have any body aches. Patient states he contacted the [facility] today and was told to come to the emergency department for evaluation. -: Gradual, week(s) (3) Radiation: non-radiation Severity scale (0 -10): 0 Consistency: constant Improves with: none Worsens with: none Associated Symptoms: denies other symptoms Treatments Prior to Arrival: none - Related Data Home Medications Medication Instructions Recorded Confirmed Last Taken Apixaban [Eliquis] 5 mg PO BID 06/07/18 05/08/19 04/15/19 Aspirin EC [Halfprin EC] 81 mg PO QDAY 06/07/18 05/08/19 04/15/19 Atorvastatin Calcium 80 mg PO DAILY 06/07/18 05/08/19 04/15/19 Colchicine 0.6 mg PO BID 06/07/18 05/08/19 04/15/19 Insulin Aspart (Nf) [NovoLOG 16 units SQ ACHS 12/29/18 05/08/19 04/15/19 Flexpen] Insulin Glargine,Hum.rec.anlog 42 unit SQ QHS 12/29/18 05/08/19 04/15/19 [Lantus Solostar] Metoprolol [Lopressor TAB] 100 mg PO BID 12/29/18 05/08/19 04/15/19 amLODIPine 10 mg PO DAILY 05/08/19 05/08/19 04/15/19 hydroCHLOROthiazide 25 mg PO DAILY 05/08/19 05/08/19 04/15/19 [Hydrochlorothiazide] Previous Rx's Medication Instructions Recorded Last Taken Type Acetaminophen [Acetaminophen TAB] 650 mg PO Q4H PRN tablet 12/31/18 04/15/19 Rx Albuterol INH(or & Nicu Only) 2 puff IH Q4HR PRN #1 inhalation 06/03/19 Unknown Rx [ProAir HFA Inhaler] Azithromycin [Zithromax Z-YASIR] 250 mg PO DAILY #6 tablet 06/03/19 Unknown Rx Benzonatate [Tessalon Perles] 100 mg PO Q8HR PRN #20 capsule 06/03/19 Unknown Rx predniSONE [Deltasone] 20 mg PO DAILY #15 tablet 06/03/19 Unknown Rx Allergies Allergy/AdvReac Type Severity Reaction Status Date / Time heparin Allergy Mild Hives Verified 05/08/19 08:28 metformin Allergy Mild Hives Verified 05/08/19 08:28 ED Review of Systems ROS: Stated complaint: SOB/WEAKNESS,CONSGESTED Other details as noted in HPI Constitutional: denies: chills, fever Eyes: denies: eye pain, eye discharge, vision change ENT: denies: ear pain, throat pain Respiratory: denies: cough, shortness of breath, wheezing Cardiovascular: denies: chest pain, palpitations Endocrine: no symptoms reported Gastrointestinal: denies: abdominal pain, nausea, diarrhea Genitourinary: denies: urgency, dysuria Musculoskeletal: denies: back pain, joint swelling, arthralgia Skin: denies: rash, lesions Neurological: denies: headache, weakness, paresthesias Psychiatric: denies: anxiety, depression Hematological/Lymphatic: denies: easy bleeding, easy bruising ED Past Medical Hx - Past Medical History Hx Hypertension: Yes Hx CVA: Yes (tia's) Hx Heart Attack/AMI: Yes (x2) Hx Congestive Heart Failure: Yes Hx Diabetes: Yes Hx Pulmonary Embolism: Yes Hx GERD: Yes Hx Sickle Cell Disease: No Hx Arthritis: Yes (GOUT) Hx Asthma: No Hx COPD: No Hx HIV: No Additional medical history: HYPERTROPHIC CARDIOMYOPATHY. TIA - Surgical History Hx Coronary Stent: No Hx Open Heart Surgery: Yes (DEFIBRILLATOR) Hx Internal Defibrillator: Yes Additional Surgical History: LEFT ELBOW. DOUBLE HERNIA REPAIR. LEFT AND RIGHT MENISCUS - Social History Smoking Status: Never Smoker Substance Use Type: None - Medications Home Medications: Home Medications Medication Instructions Recorded Confirmed Last Taken Type Apixaban [Eliquis] 5 mg PO BID 06/07/18 05/08/19 04/15/19 History Aspirin EC [Halfprin EC] 81 mg PO QDAY 06/07/18 05/08/19 04/15/19 History Atorvastatin Calcium 80 mg PO DAILY 06/07/18 05/08/19 04/15/19 History Colchicine 0.6 mg PO BID 06/07/18 05/08/19 04/15/19 History Insulin Aspart (Nf) [NovoLOG 16 units SQ ACHS 12/29/18 05/08/19 04/15/19 History Flexpen] Insulin Glargine,Hum.rec.anlog 42 unit SQ QHS 12/29/18 05/08/19 04/15/19 History [Lantus Solostar] Metoprolol [Lopressor TAB] 100 mg PO BID 12/29/18 05/08/19 04/15/19 History Acetaminophen [Acetaminophen TAB] 650 mg PO Q4H PRN tablet 12/31/18 05/08/19 04/15/19 Rx amLODIPine 10 mg PO DAILY 05/08/19 05/08/19 04/15/19 History hydroCHLOROthiazide 25 mg PO DAILY 05/08/19 05/08/19 04/15/19 History [Hydrochlorothiazide] Albuterol INH(or & Nicu Only) 2 puff IH Q4HR PRN #1 inhalation 06/03/19 Unknown Rx [ProAir HFA Inhaler] Azithromycin [Zithromax Z-YASIR] 250 mg PO DAILY #6 tablet 06/03/19 Unknown Rx Benzonatate [Tessalon Perles] 100 mg PO Q8HR PRN #20 capsule 06/03/19 Unknown Rx predniSONE [Deltasone] 20 mg PO DAILY #15 tablet 06/03/19 Unknown Rx ED Physical Exam - General Limitations: No Limitations General appearance: alert, in no apparent distress - Head Head exam: Present: atraumatic, normocephalic - Eye Eye exam: Present: normal appearance - ENT ENT exam: Present: mucous membranes moist - Neck Neck exam: Present: normal inspection - Respiratory Respiratory exam: Present: wheezes (Mild expiratory wheezing). Absent: respiratory distress - Cardiovascular Cardiovascular Exam: Present: regular rate, normal rhythm. Absent: systolic murmur, diastolic murmur, rubs, gallop - GI/Abdominal GI/Abdominal exam: Present: soft, normal bowel sounds. Absent: distended, tenderness - Rectal Rectal exam: Present: deferred - Extremities Exam Extremities exam: Present: normal inspection - Back Exam Back exam: Present: normal inspection - Neurological Exam Neurological exam: Present: alert, oriented X3 - Psychiatric Psychiatric exam: Present: normal affect, normal mood - Skin Skin exam: Present: warm, dry, intact, normal color. Absent: rash ED Course Vital Signs 06/03/19 06/03/19 06/03/19 11:15 11:41 13:14 Temperature 97.4 F L 97.4 F L Pulse Rate 94 H 94 H 68 Pulse Rate [ Bilateral] Respiratory 20 12 Rate Respiratory Rate [Bilateral ] Blood Pressure 150/102 Blood Pressure 150/102 [Right] O2 Sat by Pulse 97 97 Oximetry 06/03/19 06/03/19 06/03/19 13:15 13:16 13:22 Temperature 98.5 F Pulse Rate 70 Pulse Rate [ 94 H Bilateral] Respiratory 13 17 Rate Respiratory 16 Rate [Bilateral ] Blood Pressure 127/71 Blood Pressure 164/104 [Right] O2 Sat by Pulse 100 Oximetry 06/03/19 06/03/19 06/03/19 13:30 13:46 14:00 Temperature Pulse Rate 67 78 68 Pulse Rate [ Bilateral] Respiratory 14 16 20 Rate Respiratory Rate [Bilateral ] Blood Pressure 127/71 127/71 127/71 Blood Pressure [Right] O2 Sat by Pulse 96 93 Oximetry 06/03/19 06/03/19 14:16 14:30 Temperature Pulse Rate 67 62 Pulse Rate [ Bilateral] Respiratory 16 18 Rate Respiratory Rate [Bilateral ] Blood Pressure 115/52 127/71 Blood Pressure [Right] O2 Sat by Pulse 95 97 Oximetry ED Medical Decision Making - Lab Data Result diagrams: 06/03/19 12:34 06/03/19 12:34 Lab Results 06/03/19 06/03/19 06/03/19 Range/Units 12:34 12:34 12:34 WBC 7.2 (4.5-11.0) K/mm3 RBC 4.33 (3.65-5.03) M/mm3 Hgb 13.6 (11.8-15.2) gm/dl Hct 40.8 (35.5-45.6) % MCV 94 (84-94) fl MCH 31 (28-32) pg MCHC 33 (32-34) % RDW 15.3 H (13.2-15.2) % Plt Count 301 (140-440) K/mm3 Lymph % (Auto) 31.8 (13.4-35.0) % [place] % (Auto) 9.8 H (0.0-7.3) % Eos % (Auto) 2.3 (0.0-4.3) % Baso % (Auto) 0.7 (0.0-1.8) % Lymph # 2.3 (1.2-5.4) K/mm3 [place] # 0.7 (0.0-0.8) K/mm3 Eos # 0.2 (0.0-0.4) K/mm3 Baso # 0.1 (0.0-0.1) K/mm3 Seg Neutrophils % 55.4 (40.0-70.0) % Seg Neutrophils # 4.0 (1.8-7.7) K/mm3 PT 14.2 (12.2-14.9) Sec. INR 1.09 (0.87-1.13) APTT 32.3 (24.2-36.6) Sec. Sodium 137 (137-145) mmol/L Potassium 4.4 (3.6-5.0) mmol/L Chloride 97.0 L (98-107) mmol/L Carbon Dioxide 24 (22-30) mmol/L Anion Gap 20 mmol/L BUN 19 (9-20) mg/dL Creatinine 1.5 (0.8-1.5) mg/dL Estimated GFR 60 ml/min BUN/Creatinine Ratio 13 % Glucose 326 H (75-100) mg/dL Calcium 9.6 (8.4-10.2) mg/dL Total Bilirubin 0.50 (0.1-1.2) mg/dL AST 36 (5-40) units/L ALT 44 (7-56) units/L Alkaline Phosphatase 93 (35-129) units/L Troponin T (0.00-0.029) ng/mL NT-Pro-B Natriuret Pep (0-900) pg/mL Total Protein 7.4 (6.3-8.2) g/dL Albumin 4.3 (3.9-5) g/dL Albumin/Globulin Ratio 1.4 % 03/17/20 Range/Units 12:34 WBC (4.5-11.0) K/mm3 RBC (3.65-5.03) M/mm3 Hgb (11.8-15.2) gm/dl Hct (35.5-45.6) % MCV (84-94) fl MCH (28-32) pg MCHC (32-34) % RDW (13.2-15.2) % Plt Count (140-440) K/mm3 Lymph % (Auto) (13.4-35.0) % [place] % (Auto) (0.0-7.3) % Eos % (Auto) (0.0-4.3) % Baso % (Auto) (0.0-1.8) % Lymph # (1.2-5.4) K/mm3 [place] # (0.0-0.8) K/mm3 Eos # (0.0-0.4) K/mm3 Baso # (0.0-0.1) K/mm3 Seg Neutrophils % (40.0-70.0) % Seg Neutrophils # (1.8-7.7) K/mm3 PT (12.2-14.9) Sec. INR (0.87-1.13) APTT (24.2-36.6) Sec. Sodium (137-145) mmol/L Potassium (3.6-5.0) mmol/L Chloride (98-107) mmol/L Carbon Dioxide (22-30) mmol/L Anion Gap mmol/L BUN (9-20) mg/dL Creatinine (0.8-1.5) mg/dL Estimated GFR ml/min BUN/Creatinine Ratio % Glucose (75-100) mg/dL Calcium (8.4-10.2) mg/dL Total Bilirubin (0.1-1.2) mg/dL AST (5-40) units/L ALT (7-56) units/L Alkaline Phosphatase (35-129) units/L Troponin T < 0.010 (0.00-0.029) ng/mL NT-Pro-B Natriuret Pep 64.74 (0-900) pg/mL Total Protein (6.3-8.2) g/dL Albumin (3.9-5) g/dL Albumin/Globulin Ratio % - EKG Data -: EKG Interpreted by Ar EKG shows normal: sinus rhythm Rate: normal - Radiology Data Radiology results: report reviewed - Medical Decision Making Discussed results with patient Patient states that he has significant improvement with the DuoNeb breathing treatment Critical care attestation.: If time is entered above; I have spent that time in minutes in the direct care of this critically ill patient, excluding procedure time. ED Disposition Clinical Impression: Bronchitis Disposition: DC-01 TO HOME OR SELFCARE Is pt being admited?: No Does the pt Need Aspirin: No Condition: Stable Instructions: Acute Bronchitis (ED) Additional Instructions: return if worse Referrals: PRIMARY CARE, [Primary Care Provider] - 3-5 Days [facility] [Outside] - 3-5 Days Time of Disposition: 14:50
[2019-06-03 13:53] LABS: Albumin 4.3 g/dL (3.9-5); Calcium 9.6 mg/dL (8.4-10.2)
[2019-06-03 15:12] VITALS: BP 136/64
== END 2019-06-03 15:11 | disposition home or self-care (01) ==
LOC: ED 11:11
DX: J40 Bronchitis, not specified as acute or chronic (principal); R06.2 Wheezing; I11.0 Hypertensive heart disease with heart failure; I50.9 Heart failure, unspecified; I25.2 Old myocardial infarction; K21.9 Gastro-esophageal reflux disease without esophagitis; M10.9 Gout, unspecified; E11.9 Type 2 diabetes mellitus without complications; Z95.810 Presence of automatic (implantable) cardiac defibrillator; Z79.899 Other long term (current) drug therapy; Z88.8 Allergy status to other drugs, medicaments and biological substances; Z79.82 Long term (current) use of aspirin; Z79.4 Long term (current) use of insulin; Z86.73 Personal history of transient ischemic attack (TIA), and cerebral infarction without residual deficits; Z98.890 Other specified postprocedural states
CPT/HCPCS: 36415; 71046; 80053; 83880; 84484; 85025; 85610; 85730; 93005; 93010; 94640; 94644